=== PATIENT | male | born 1975 | race Caucasian/White ===

== ENCOUNTER 2018-09-24 22:28 | Emergency (ER) | payer OTHER, SELFPAY ==
[2018-09-24 22:28] VITALS: BP 126/74; PULSE 59; RESP 14; TEMP 36.5; O2SAT 98; BMI 23.7
--- NOTE | 2018-09-24 22:45 | RAD_ITS ---
HISTORY:right 4th digit pain after getting finger caught in dog collar right 4th digit pain after getting finger caught in dog collar COMPARISON: None FINDINGS: # of images incl. paperwork: 3 XR Fingers Min 2 Views: Right BONE AND JOINTS: Intra-articular fracture dorsal base DIP right fourth finger SOFT TISSUES: Associated soft tissue swelling No radiopaque foreign body. RAD/Finger(s) Min 2 Views IMPRESSION: Fourth finger fracture right hand at 2323 Reported and signed by: Martina Adams DO Electronically Signed: Martina Adams DO at 23:22 EDT Tel , Service support ,
--- NOTE | 2018-09-24 23:18 | ED.VISSUMM ---
- ER Visit Summary Date of Service: 09/24/18 Chief Complaint: [Injury to right ring finger] History of Present Illness: The patient is a 43 M [presents to the emergency department after injuring his right ring finger about half an hour ago. Patient states that his dog was in the standoff with a skunk so he reached with his right hand to grab the dog by the collar and injured his right ring finger when he got caught in the dog's collar. Patient is right-hand dominant.] Physical Examination: [Right ring finger-patient does have some ecchymosis and bruising over the DIP joint. Patient has limited flexion secondary to pain. He is able to keep the PIP joint extended against resistance. Neurovascular intact distally. There is some mild soft tissue swelling.] Test Results: [X-rays of the right ring finger obtained showed a fracture at the base of the distal phalanx dorsal aspect.] Emergency Department Course and Treatment: [Was placed in aluminum splint.] Treatment Plan: [She will be given a prescription for [place] for pain. Patient will be given orthopedic referral.] Disposition: [Discharged home stable condition.] Impression: [Right ring finger distal phalanx fracture] This note was generated with [employer] dictation software. It may contain incorrect words, spelling, and punctuation that were not noted in review of the chart prior to signing ED Disposition - Plan for ED Patient: Referrals: Ivan Lobo DO [Primary Care Provider] -
--- NOTE | 2018-09-24 23:20 | DCINST.ED_ITS ---
ED Disposition - Plan for ED Patient: Instructions: FRACTURE, Finger (Closed) Prescriptions: Hydrocodone Bitart/Apap 5-325 [[place] 5MG-325MG] 1 tab PO Q4H PRN PRN 2 Days #10 tab PRN Reason: Pain Prescription Printed Referrals: Ivan Lobo DO [Primary Care Provider] - James Sun DO [STAFF PHYSICIAN] - 5-7 Days
[2018-09-24 23:33] VITALS: PULSE 88; RESP 16; O2SAT 98
== END 2018-09-24 23:37 | disposition home or self-care (01) ==
LOC: ED 22:59
PROVIDERS: Emergency Provider Emergency Medicine; Family Provider Student in an Organized Health Care Education/Training Program; PCP Student in an Organized Health Care Education/Training Program
DX: S62.634A Displaced fracture of distal phalanx of right ring finger, initial encounter for closed fracture (principal); X58.XXXA Exposure to other specified factors, initial encounter; Y93.9 Activity, unspecified; Y92.9 Unspecified place or not applicable
CPT/HCPCS: 73140; 99283

== ENCOUNTER → 2025-01-10 | Outpatient (CLI) | payer OTHER, SELFPAY ==
[2025-01-10 12:44] LABS: Mucous, Urine 0 SEEN /hpf (<or=2+); Red Blood Cells-Urine 0 SEEN /hpf (0-5)
[2025-01-10 12:59] LABS: Hematocrit 45.0 % (40-54); Hemoglobin 15.2 g/dL (13.0-16.5); Immature Granulocytes Count 0.010 X10^3/uL (0.0-0.0); Mean Corp Hgb Conc 33.8 g/dL (32-36); Mean Corpuscular Volume 95.1 fL (80-94); Mean Platelet Vol. 11.8 fl (6.2-12.0); NRBC Flagged by Analyzer 0 % (0-5); Platelet Count 251 K/mm3 (150-450); RBC Distribution Width CV 11.7 % (11.6-14.6); RBC Distribution Width SD 40.5 fl (35.1-43.9); Red Blood Count 4.73 M/mm3 (4.6-6.2); White Blood Count 6.2 K/mm3 (4.4-11.0)
[2025-01-10 13:01] LABS: Color, Urine Yellow (Yellow); Glucose, Dipstick Normal (Normal); Ketone-Dipstick Negative (Negative); Leukocyte Esterase-Dipstick Negative /ul (Negative); Nitrite-Dipstick Negative (Negative); Occult Blood-Urine Negative /ul (Negative); Protein-Dipstick 15 mg/dl (Negative); Specific Gravity, Urine 1.015 (1.002-1.030); Urine Bilirubin Dipstick Negative (Negative)
[2025-01-10 13:21] LABS: Squamous Epithelial Cells - UA 0-5 SEEN /hpf (0-5)
[2025-01-10 13:22] LABS: PSA,Total - Annual Screen 0.83 ng/mL (0.02-4.00)
== END | disposition home or self-care (01) ==
LOC: LABSPEC 12:25
PROVIDERS: PCP Internal Medicine; Referring Provider Internal Medicine; Visit Provider Internal Medicine
DX: Z87.898 Personal history of other specified conditions (principal)
CPT/HCPCS: 81001; 84153; 85025; G0103

== ENCOUNTER → 2025-01-25 | Outpatient (CLI) | payer OTHER, SELFPAY ==
[2025-01-25 11:15] LABS: Mucous, Urine 0 SEEN /hpf (<or=2+); Red Blood Cells-Urine 0 SEEN /hpf (0-5)
[2025-01-25 12:33] LABS: Color, Urine Yellow (Yellow); Glucose, Dipstick Normal (Normal); Ketone-Dipstick Negative (Negative); Leukocyte Esterase-Dipstick Negative /ul (Negative); Nitrite-Dipstick Negative (Negative); Occult Blood-Urine Negative /ul (Negative); Protein-Dipstick 15 mg/dl (Negative); Specific Gravity, Urine 1.015 (1.002-1.030); Urine Bilirubin Dipstick Negative (Negative)
[2025-01-25 12:44] LABS: Squamous Epithelial Cells - UA 0-5 SEEN /hpf (0-5)
--- OUTSIDE RECORDS SUMMARY | 2025-01-25 12:44 | XMS RPT_ITS | CCD ---
Author Organization [facility] Care Team Providers Care Lang Interpreter Name Role Phone Ivan Lobo DO Primary Care Provider [phone] Ivan Lobo DO Primary Care Provider [phone] Phillip COMPLAINT ADJUSTER.SUPERVISOR BORDER DEPARTMENTMaggie Unavailable Katiuska COMPLAINT ADJUSTER.Ayana ALFARO Unavailable LOBO IVAN L Primary Care Unavailable DEJOSEPH, PATRICK Referring Unavailable ANH PEOPLES Attending Unavailable LOBO, IVAN L Primary Care Unavailable LOBO, IVAN L Primary Care Unavailable LOBO, IVAN L Primary Care Unavailable LOBO, IVAN L Primary Care Unavailable SELF Referring Unavailable LOUISE PULIDOIHA Attending Unavailable LOBO, IVAN L Primary Care Unavailable LOBO, IVAN L Referring Unavailable LOBO, IVAN L Primary Care Unavailable LOBO, IVAN L Attending Unavailable LOBO, IVAN L Primary Care Unavailable LOBO, IVAN L Referring Unavailable LOBO, IVAN L Primary Care Unavailable LOBO, IVAN L Referring Unavailable LOBO, IVAN L Primary Care Unavailable DEJOSEPH, PATRICK Referring Unavailable LOBO, IVAN L Primary Care Unavailable DEJOSEPH, PATRICK Referring Unavailable LOBO, IVAN L Primary Care Unavailable DEJOSEPH, PATRICK Referring Unavailable LOBO, IAVN L Primary Care Unavailable DEJOSEPH, PATRICK Referring Unavailable LOBO, IVAN L Primary Care Unavailable GINGER, DAT Attending Unavailable LOBO, IVAN L Primary Care Unavailable DEJOSEPH, PATRICK Referring Unavailable LOBO, IVAN L Primary Care Unavailable DEJOSEPH, PATRICK Referring Unavailable LOBO, IVAN L Primary Care Unavailable GINGER, DAT Referring Unavailable LOBO, IVAN L Primary Care Unavailable GINGER, DAT Referring Unavailable LOBO, IVAN L Primary Care Unavailable GINGER, DAT Referring Unavailable GINGERDAT Attending Unavailable YAMIL IVAN Edwin Primary Care Unavailable DEJOSEPH, PATRICK Attending Unavailable IVAN LOBO Primary Care Unavailable IVAN LOBO Referring Unavailable IVAN LOBO Primary Care Unavailable LOBOIVAN LOWRY Primary Care Unavailable DEJOSEPH, PATRICK Referring Unavailable IVAN LOBO L Primary Care Unavailable LOBO IVAN Edwin Referring Unavailable IVAN LOBO Primary Care Unavailable Fast, Patrick Referring Unavailable Fast, Patrick Attending Unavailable Fast, Patrick Primary Care Unavailable Medications Current Medications Medication Drug Class(es) Dates Sig (Normalized) Sig (Original) bacillus coagulans [id number] unt / inulin 250 mg oral capsule (18 sources) take 2 capsules by mouth once daily Bacillus coagulans-Inulin (PROBIOTIC WITH PREBIOTIC) 1 billion-250 cell-mg cap Take 2 capsules by mouth once daily. Active biotin 5 mg oral tablet (18 sources) Start: 01-27-2024 take 1 tablet by mouth once daily biotin 5 mg tab Take 1 tablet by mouth once daily. HOLD for 72 hours before labs 01/27/2024 Active calcium polycarbophil 625 mg oral tablet (17 sources) Start: 01-27-2024 FIBERCON 625 mg tablet 1 daily with 8 oz water, can titrate up to 3 tablets twice daily 01/27/2024 Active cholecalciferol 0.025 mg oral capsule (20 sources) Vitamin D Start: 09-11-2022 take 1 capsule by mouth once daily Cholecalciferol, Vitamin D3, 25 mcg (1,000 unit) cap Take 1 capsule by mouth once daily. 09/11/2022 Active Start: 06-22-2015 End: 09-11-2022 take 1 tablet by mouth once daily Cholecalciferol, Vitamin D3, 2,000 unit cap Indications: Vitamin D insufficiency Take 1 tablet by mouth once daily. 30 capsule 11 06/22/2015 09/11/2022 Discontinued Comment on above: Take 1 tablet by earnestine th once daily. Take 1 capsule by mo [facility] once daily. ciprofloxacin 500 mg oral tablet (7 sources) Quinolone Antimicrobial Start: 03-30-19 End: 04-09-19 take 1 tablet by mouth twice daily ciprofloxacin HCl (CIPRO) 500 mg tablet Take 1 tablet by mouth two times a day for 10 days. 20 tablet 03/30/2024 04/09/2024 Active Herbal Drugs (CALMME) tab (20 sources) Start: 09-12-19 take 1 tablet by mouth once daily at bedtime Herbal Drugs (CALMME) tab Take 1 tablet by mouth daily at bedtime. CALM FORTE 09/11/2022 Active Start: 09-11-2022 take 1 tablet by earnestine th once daily at bedtime Herbal Drugs (CALMME) tab Take 1 tablet by mouth daily at bedtime. CALM FORTE 0 09/11/2022 Active Comment on above: Take 1 tablet by earnestine th daily at bedtime. CALM FORTE lutein 40 mg oral capsule (13 sources) Start: 03-05-2024 take 1 capsule by mouth once daily lutein 40 mg cap Take 1 capsule by mouth once daily. 03/05/2024 Active magnesium carb,citrate,oxide (MAGNESIUM COMPLEX) 300 mg magnesium tab (20 sources) Start: 09-11-2022 take 1 tablet by mouth once daily magnesium carb,citrate,oxide (MAGNESIUM COMPLEX) 300 mg magnesium tab Take 1 tablet by mouth once daily. 09/11/2022 Active Start: 09-11-2022 take 1 tablet by earnestine th once daily magnesium carb,citrate,oxide (MAGNESIUM COMPLEX) 300 mg magnesium tab Take 1 tablet by mouth once daily. 0 09/11/2022 Active Comment on above: Take 1 tablet by earnestine th once daily. omega 1-cpj-icm-fish oil (FISH OIL) 100-160-1,000 mg cap (20 sources) Start: 09-11-2022 take 100-160 capsules by mouth once daily omega 4-kpg-zwx-fish oil (FISH OIL) 100-160-1,000 mg cap Take 1 capsule by mouth once daily. 09/11/2022 Active Start: 09-11-2022 take 100-160 capsule s by mouth once daily omega 1-inx-ger-fish oil (FISH OIL) 100-160-1,000 mg cap Take 1 capsule by mouth once daily. 0 09/11/2022 Active Comment on above: Take 1 capsule by mo ut[facility] once daily. phenazopyridine hydrochloride 200 mg oral tablet (8 sources) Start: take 1 tablet by mouth every eight hours as needed phenazopyridine (PYRIDIUM) 200 mg tablet Take 1 tablet by mouth three times a day as needed for pain (UTI pain). 30 tablet 03/30/2024 Active valACYclovir 1000 mg oral tablet (15 sources) Herpesvirus Nucleoside Analog DNA Polymerase Inhibitor, Herpes Simplex Virus Nucleoside Analog DNA Polymerase Inhibitor, Herpes Zoster Virus Nucleoside Analog DNA Polymerase Inhibitor Start: 024 take 1 tablet by mouth three times daily as needed valACYclovir (VALTREX) 1 gram tablet Indications: Recurrent cold sores Take 1 tablet by mouth three times a day as needed (cold sores). 30 tablet 2 02/18/2024 Active valerian root extract 500 mg oral capsule (20 sources) Start: 023 take 1 capsule by mouth once daily at bedtime Valerian Root 500 mg cap Take 1 capsule by mouth daily at bedtime. 09/11/2022 Active Start: 09-11-2022 take 1 capsule by [facility] once daily at bedtime Valerian Root 500 mg cap Take 1 capsule by mouth daily at bedtime. 0 09/11/2022 Active Comment on above: Take 1 capsule by [facility] daily at bedtime. vitamin b12 1 mg oral tablet (20 sources) Vitamin B12 take 1 tablet by mouth once daily cyanocobalamin (VITAMIN B-12) 1,000 mcg tab Take 1,000 mcg by mouth once daily. Active Comment on above: Take 1,000 mcg by [facility] once daily. Completed/Discontinued Medications Medication Drug Class(es) Dates Sig (Normalized) Sig (Original) Ascorbic Acid (7 sources) Vitamin C End: 09-10-2022 take 1 tablet by mouth once daily ascorbic acid (OSITO-C ORAL) Take 1 tablet by mouth once daily. 0 09/10/2022 Discontinued take 1 tablet by mouth once sherine y ascorbic acid (OSITO-C ORAL) Take 1 tablet by mouth once daily. 0 Active Comment on above: Take 1 tablet by [facility] once daily. Lysine (7 sources) End: 09-10-2022 take 2 tablets by mouth once daily LYSINE ORAL Take 2 tablets by mouth once daily. 0 09/10/2022 Discontinued take 2 tablets by mouth once [place] LYSINE ORAL Take 2 tablets by mouth once daily. 0 Active Comment on above: Take 2 tablets by [facility] once daily. melatonin 1 mg oral tablet (10 sources) Start: 09-11-2022 End: 01-27-2024 take 1-2 tablets by mouth once daily at bedtime melatonin 1 mg tablet Take 1-2 tablets by mouth daily at bedtime. 60 tablet 11 09/11/2022 01/27/2024 Discontinued (Discontinued by Patient) Comment on above: Take 1-2 tablets by mouth daily at bedtime. OTC PRODUCT (7 sources) End: 09-11-2022 take 1 tablet by mouth at bedtime as needed OTC PRODUCT Take 1 tablet by mouth at bedtime as needed. Calms Forte 0 09/11/2022 Discontinued (Duplicate Entry) take 1 tablet by earnestine th at bedtime as needed OTC PRODUCT Take 1 tablet by mouth at bedtime as needed. Calms Forte 0 Active Comment on above: Take 1 tablet by earnestine th at bedtime as needed. Calms Forte Problems Active Problems Problem Classification Problem Date Documented Da te Episodic/Chronic Disorders of lipid metabolism (2 sources) Dyslipidemia; Translations: [Hyperlipidemia, unspecified] Onset: 01-27-2024 12-24-2023 Chronic Nutritional deficiencies (20 sources) Vitamin D deficiency; Translations: [Vitamin D deficiency, unspecified] Onset: 03-03-2017 Chronic Other connective tissue disease (1 source) Clicking knee; Translations: [Other symptoms and signs involving the musculoskeletal system] Episodic Other connective tissue disease (1 source) Pain of left heel; Translations: [Pain in left foot] Episodic Other connective tissue disease (1 source) Muscle pain; Translations: [Myalgia, unspecified site] Episodic Other connective tissue disease (1 source) Pain of left calf; Translations: [Pain in left lower leg] 12-24-2023 Episodic Other gastrointestinal disorders (2 sources) Altered bowel function; Translations: [Other specified symptoms and signs involving the digestive system and abdomen] 12-24-2023 Episodic Residual codes; unclassified (20 sources) Family history of cancer of colon; Translations: [Family history of malignant neoplasm of digestive organs] Onset: 07-19-2015 07-19-2015 Episodic Residual codes; unclassified (1 source) History of clinical finding in subject; Translations: [Personal history of other specified conditions] 05-27-2024 Episodic Residual codes; unclassified (2 sources) Personal history of other specified conditions; Translations: [History of elevated PSA] Onset: 12-24-2024 Episodic Past or Other Problems Problem Classification Problem Date Documented Da te Episodic/Chronic Abdominal pain (20 sources) Right inguinal pain; Translations: [Right lower quadrant pain] Onset: 03-04-2018 03-04-2018 Episodic Cardiac dysrhythmias (20 sources) Palpitations; Translations: [Palpitations] Onset: 03-29-2019 03-29-2019 Episodic Genitourinary symptoms and ill-defined conditions (2 sources) Abnormal urinalysis; Translations: [Unspecified abnormal findings in urine] Onset: 03-27-2024 03-26-2024 Episodic Immunizations and screening for infectious disease (18 sources) Raised Helicobacter pylori antibody; Translations: [Other specified abnormal immunological findings in serum] Onset: 02-18-2024 02-18-2024 Episodic Joint disorders and dislocations; trauma-related (20 sources) Dislocation of shoulder joint; Translations: [Unspecified dislocation of unspecified shoulder joint, initial encounter] Onset: 05-21-2016 05-21-2016 Episodic Other and unspecified benign neoplasm (20 sources) Multiple benign melanocytic nevi ; Translations: [Melanocytic nevi, unspecified] Onset: 10-25-2015 10-25-2015 Episodic Other and unspecified benign neoplasm (20 sources) Benign neoplasm of soft tissue; Translations: [Melanocytic nevi, unspecified] Onset: 03-04-2018 03-04-2018 Episodic Other and unspecified benign neoplasm (20 sources) Lipoma of thigh; Translations: [Benign lipomatous neoplasm of skin and subcutaneous tissue of left leg] Onset: 03-29-2019 03-29-2019 Episodic Other connective tissue disease (20 sources) Pain in left foot; Translations: [Pain in left foot] Onset: 03-29-2019 03-29-2019 Episodic Other gastrointestinal disorders (20 sources) Abdominal bloating; Translations: [Abdominal distension (gaseous)] Onset: 02-18-2024 12-24-2023 Episodic Other gastrointestinal disorders (1 source) Abdominal distension (gaseous); Translations: [Bloating] Onset: 02-18-2024 Episodic Other gastrointestinal disorders (1 source) Other specified symptoms and signs involving the digestive system and abdomen; Translations: [Altered bowel function] Onset: 01-27-2024 Episodic Other screening for suspected conditions (not mental disorders or infectious disease) (20 sources) Patient encounter status; Translations: [Encounter for screening for cardiovascular disorders] Onset: 07-06-2020 07-26-2020 Episodic Urinary tract infections (2 sources) Acute cystitis; Translations: [Acute cystitis without hematuria] Onset: 04-06-2024 04-06-2024 Episodic Viral infection (19 sources) Recurrent herpes simplex labialis; Translations: [Herpesviral vesicular dermatitis] Onset: 02-18-2024 02-18-2024 Episodic Results Test Name Value Interpretation Reference Range Facility CBC W/Diff, Automatedon 10- Absolute Lymph 1.86 X10 3/uL Normal 0.83-4.51 [facility] Comment on above: Performed By: #### L 400.0001, L100.0100, L501.9910 #### [facility] [address] [place], [address] Absolute Neut 3.6 X10 3/uL Normal 2.0-7.7 [facility] Comment on above: Performed By: #### L 400.0001, L100.0100, L501.9910 #### [facility] [address] [place], [address] Basophils/100 WBC (Bld) 0.8 % Normal 0-1 [facility] Comment on above: Performed By: #### L 400.0001, L100.0100, L501.9910 #### [facility] [address] [place], [address] Eosinophils/100 WBC (Bld) 2.3 % Normal 0-5 [facility] Comment on above: Performed By: #### L 400.0001, L100.0100, L501.9910 #### [facility] [address] [place], [address] Erythrocyte distribution width (RBC) [Ratio] 11.7 % Normal 11.6-14.6 [facility] Comment on above: Performed By: #### L 400.0001, L100.0100, L501.9910 #### [facility] [address] [place], [address] Hematocrit (Bld) [Volume fraction] 45.0 % Normal 40-54 [facility] Comment on above: Performed By: #### L 400.0001, L100.0100, L501.9910 #### [facility] [address] [place], [address] Hemoglobin (Bld) [Mass/Vol] 15.2 g/dL Normal 13.0-16.5 [facility] Comment on above: Performed By: #### L 400.0001, L100.0100, L501.9910 #### [facility] [address] [place], [address] IG% 0.200 Normal 0.0-0.9 [facility] Comment on above: Result Comment: IG% - Immature Granulocytes (promyelocytes, myelocytes and metamyelocytes) > 1% indicates that a LEFT SHIFT is Present. Performed By: #### L 400.0001, L100.0100, L501.9910 #### [facility] [address] [place], [address] Lymphocytes/100 WBC (Bld) 30.0 % Normal 19-41 [facility] Comment on above: Performed By: #### L 400.0001, L100.0100, L501.9910 #### [facility] [address] [place], [address] MCH (RBC) [Entitic mass] 32.1 pg High 27.0-32.0 [facility] Comment on above: Performed By: #### L 400.0001, L100.0100, L501.9910 #### [facility] [address] [place], [address] MCHC (RBC) [Mass/Vol] 33.8 g/dL Normal 32-36 [facility] Comment on above: Performed By: #### L 400.0001, L100.0100, L501.9910 #### [facility] [address] [place], [address] MCV (RBC) [Entitic vol] 95.1 fL High 80-94 [facility] Comment on above: Performed By: #### L 400.0001, L100.0100, L501.9910 #### [facility] [address] [place], [address] Monocytes/100 WBC (Bld) 8.4 % Normal 0-10 [facility] Comment on above: Performed By: #### L 400.0001, L100.0100, L501.9910 #### [facility] [address] [place], [address] Neutrophils/100 WBC (Bld) 58.3 % Normal 47-70 [facility] Comment on above: Performed By: #### L 400.0001, L100.0100, L501.9910 #### [facility] [address] [place], [address] Nucleated RBC (Bld) [#/Vol] 0 10*3/uL Normal 0-5 [facility] Comment on above: Performed By: #### L 400.0001, L100.0100, L501.9910 #### [facility] [address] [place], [address] Platelet mean volume (Bld) [Entitic vol] 11.8 fL Normal 6.2-12.0 [facility] Comment on above: Performed By: #### L 400.0001, L100.0100, L501.9910 #### [facility] [address] [place], [address] Platelets (Bld) [#/Vol] 251 10*3/uL Normal 150-450 [facility] Comment on above: Performed By: #### L 400.0001, L100.0100, L501.9910 #### [facility] [address] [place], [address] RBC (Bld) [#/Vol] 4.73 10*6/uL Normal 4.6-6.[address] [facility] Comment on above: Performed By: #### L 400.0001, L100.0100, L501.9910 #### [facility] [address] [place], [address] RDW SD 40.5 fl Normal 35.1-43.9 [facility] Comment on above: Performed By: #### L 400.0001, L100.0100, [id number] #### [facility] [address] [place], [address] WBC (Bld) [#/Vol] 6.2 10*3/uL Normal 4.4-11.0 [facility] Comment on above: Performed By: #### L 400.0001, L100.0100, L501.9910 #### [facility] [address] [place], [address] PSA,Total - Annual Screenon 01-10-2025 PSA,TOT SCREEN 0.83 ng/mL Normal 0.02-4.00 [facility] Comment on above: Result Comment: This test was performed using the [employer] tPSA method. Measured values of a patient??sample can vary depending on the testing procedure used. PSA values determined on patient samples by different testing procedures cannot be used interchangeably. If there is a change in PSA assays while monitoring therapy, sequential testing should be performed to confirm baseline values. Performed By: #### L 400.0001, L100.0100, L501.9910 #### [facility] [address] [place], [address] Urinalysis, Completeon 01-10 EPI,SQUAMOUS 0-5 SEEN Normal 0-5 [facility] Comment on above: Order Comment: Urine , Random Performed By: #### L 400.0001, L100.0100, L501.9910 #### [facility] [address] [place], [address] WBC 0-5 SEEN Normal 0-5 [facility] Comment on above: Order Comment: Urine , Random Performed By: #### L 400.0001, L100.0100, L501.9910 #### [facility] [address] [place], [address] BACTERIA 0 SEEN Normal None Seen [facility] Comment on above: Order Comment: Urine , Random Performed By: #### L 400.0001, L100.0100, L501.9910 #### [facility] [address] [place], [address] Mucus Ql (Urine sed) 0 SEEN Normal [facility] Comment on above: Order Comment: Urine , Random Performed By: #### L 400.0001, L100.0100, [id number] #### [facility] [address] [place], [address] RBC 0 SEEN Normal 0-5 [facility] Comment on above: Order Comment: Urine , Random Performed By: #### L 400.0001, L100.0100, L501.9910 #### [facility] [address] [place], [address] CNOVon 12-28-2024 CNOV Office Visit (UROLMN ) DEMETRI SANTILLAN ([id number]) 1975 M EXC Date Time Provider Department 12/28/24 9:00 AM DAT MILES During your visit today, we recorded the following information about you: Ivan Alcantar RN 12/28/2024 10:18 AM Signed [facility] M[facility] PATIENT - HISTORY AND PHYSICAL EXAMINATION PATIENT: Demetri Santillan (49 year old) PCP: Ivan Lobo DO CHIEF COMPLAINT: f/u history of elevated PSA Clinic note from 04/06/2024 copied and updated. HISTORY OF PRESENT ILLNESS: Demetri Santillan is a 49 year old male with history of elevated PSA who presents for follow up evaluation. Per last OV note 04/06/24: Reports his PSA was checked and found to be 1.29 on 01/27/2024 Reports he had DANIS around this time and this was normal His PSA was 7.71 on 02/18/2024 PSA was rechecked afterwards and was found to be 4.99 03/01/2024 and 5.07 03/24/2024 Urine culture on 03/27/2024 revealed UTI with E Coli Presents today with updated PSA. PSA (ng/mL) Date Value 12/24/2024 0.70 05/26/2024 0.84 03/01/2024 4.99 09/11/2022 0.99 07/06/2020 0.95 12/22/2015 0.86 PSA Screening (ng/mL) Date Value 03/24/2024 5.07 02/18/2024 7.71 PSA, Percent Free (%) Date Value 05/26/2024 20 09/11/2022 32 07/06/2020 27 12/22/2015 26 Interval hx: Patient overall feeling well. He denies any bothersome LUTS. Denies any gross hematuria or dysuria. Denies ED. REVIEW OF SYSTEMS (2-9) GENERAL:No weight loss, malaise or fevers., SEE HPI GENITOURINARY: See HPI The remainder of the ROS was negative. Ivan Alcantar RN UROLOGY ATTENDING ATTESTATION: The patient was personally seen and evaluated. The nurse's history and ROS were reviewed. I repeated the significant and relevant portions of the examination and formulated the final plan for management. HISTORY: PAST MEDICAL HISTORY Diagnosis Date Family history of colon cancer mother and paternal aunt Multiple lipomas Multiple nevi 2 x 2 mm on right upper back x 2, 7 x 2 mm on right lower back/flank Vitamin D insufficiency PAST SURGICAL HISTORY Procedure Laterality Date APPENDECTOMY 1999 ruptured, emergent, sepsis COLONOSCOPY 08/02/2015 Colonoscopy (MAC), 1 hyperplastic polyp COLONOSCOPY GEN ANES 08/07/2020 Repeat in 5 years FRACTURE SURGERY Left 2010 ulnar PAST SURGICAL HISTORY OF 2006 ACL repair of Right knee SOCIAL HISTORY[1] FAMILY HISTORY Problem Relation Age of Onset other (Smoker) Mother Alcohol abuse Mother liver disease Colon Cancer Mother 55 rectal cancer other (Car accident) Father at 48 No Known Problems Sister other (MVA) Brother multiple injuries Hypertension Maternal Grandmother at 96 Heart Maternal Grandfather Stroke Maternal Grandfather at 62 Hypertension Paternal Grandmother Diabetes Paternal Grandfather Hypertension Paternal Grandfather Stroke Paternal Grandfather Anxiety disorder Daughter well treated ADD/ADHD Daughter No Known Problems Daughter hx of heavier weight Colon Cancer Paternal Aunt 50 in her 60's MEDICATIONS: Current Outpatient Medications Medication Sig phenazopyridine (PYRIDIUM) 200 mg tablet Take 1 tablet by mouth three times a day as needed for pain (UTI pain). (Patient not taking: Reported on 04/06/2024) lutein 40 mg cap Take 1 capsule by mouth once daily. valACYclovir (VALTREX) 1 gram tablet Take 1 tablet by mouth three times a day as needed (cold sores). Bacillus coagulans-Inulin (PROBIOTIC WITH PREBIOTIC) 1 billion-250 cell-mg cap Take 2 capsules by mouth once daily. biotin 5 mg tab Take 1 tablet by mouth once daily. HOLD for 72 hours before labs FIBERCON 625 mg tablet 1 daily with 8 oz water, can titrate up to 3 tablets twice daily (Patient not taking: Reported on 04/06/2024) Cholecalciferol, Vitamin D3, 25 mcg (1,000 unit) cap Take 1 capsule by mouth once daily. omega 2-ojb-clc-fish oil (FISH OIL) 100-160-1,000 mg cap Take 1 capsule by mouth once daily. Valerian Root 500 mg cap Take 1 capsule by mouth daily at bedtime. Herbal Drugs (CALMME) tab Take 1 tablet by mouth daily at bedtime. CALM FORTE magnesium carb,citrate,oxide (MAGNESIUM COMPLEX) 300 mg magnesium tab Take 1 tablet by mouth once daily. cyanocobalamin (VITAMIN B-12) 1,000 mcg tab Take 1,000 mcg by mouth once daily. No current facility-administered medications for this visit. PHYSICAL EXAMINATION: VITALS: There were no vitals taken for this visit. GENERAL: alert, no distress, normal affect EYES: no icterus, no discharge, conjugate gaze RESPIRATORY: normal effort, regular rate, no audible wheeze SKIN: no abnormal bruising, no rashes, no cyanosis NEUROLOGIC: normal gait, good manual dexterity, no paralysis OFFICE DATA: URINALYSIS: WNL OTHER DATA: Creatinine Date Value (more content not included)... Normal [facility] PSA SerPl-mCncon 12-24-2024 Prostate specific Ag [Mass/Vol] 0.70 ng/mL Normal <2.60 [facility] Comment on above: Order Comment: Speci men Type: BLOOD SPECIMENOrdering Facility: [facility] Address: [address] [place] [address] Result Comment: Tota l PSA test methodology used is the Electrochemiluminescence Immunoassay by [employer]. Total PSA values by differing methodologies cannot be interchanged. Performed By: #### 2 857-1 ####[facility] LABCLIA [id number] [address] [place] Free PSA [Mass/Vol]on 2024 Free PSA/Total PSA [Mass fraction] 20 % Normal [facility] Comment on above: Order Comment: Speci men Type: BLOOD SPECIMENOrdering Facility: [facility] Address: [address] [place] [address] Result Comment: Tota l and free PSA test methodology used is the Electrochemiluminescence Immunoassay by [employer]. Total or free PSA values by differing methodologies cannot be interchanged. The below table lists the probability of finding prostate cancer upon needle biopsy, for men 50 years or older and total PSA concentrations from 4.0-10.0 ng/mL. Results should be interpreted within the broader clinical context. Free PSA(%) 50-59 years 60-69 years >69 years <11 49.2% 57.5% 64.5% 11-18 26.9% 33.9% 40.8% 19-25 18.3% 23.9% 29.7% >25 9.1% 12.2% 15.8% Performed By: #### 1 0886-0 ####[facility] LABIA [id number] [place] [address] [place] Prostate specific Ag [Mass/Vol] 0.84 ng/mL Normal <2.60 [facility] Comment on above: Order Comment: Speci men Type: BLOOD SPECIMENOrdering Facility: [facility] Address: [address] [place] [address] Result Comment: Tota l PSA test methodology used is the Electrochemiluminescence Immunoassay by [employer]. Total PSA values by differing methodologies cannot be interchanged. Performed By: #### 1 0886-0 ####[facility] LABIA [id number] [address] [place] CNOVon 04-06-2024 CNOV Office Visit (UROLMN ) DEMETRI SANTILLAN ([id number]) 1975 M EXC Date Time Provider Department 04/06/24 9:00 AM DAT MILES During your visit today, we recorded the following information about you: Pulse Blood pressure Weight Height 55/minute 106/66 81 kg 1.803 m Dat Miles MD 04/06/2024 11:34 AM Signed [facility] M[facility] PATIENT - HISTORY AND PHYSICAL EXAMINATION PATIENT: Demetri Santillan (49 year old) PCP: Ivan Lobo DO CHIEF COMPLAINT: elevated PSA HISTORY OF PRESENT ILLNESS: Demetri Santillan is a 49 year old male who presents for elevated PSA Reports his PSA was checked and found to be 1.29 on 01/27/2024 Reports he had DANIS around this time and this was normal His PSA was recently checked and found to be 7.71 on 02/18/2024 PSA was rechecked afterwards and was found to be 4.99 03/01/2024 and 5.07 03/24/2024 Urine culture on 03/27/2024 revealed UTI with E Coli He was given 2 week course of cipro Reports he did not have not have any symptoms prior this positive urine culture - no dysuria, hematuria, no urgency or frequency No flu like symptoms PSA (ng/mL) Date Value 03/01/2024 4.99 09/11/2022 0.99 07/06/2020 0.95 12/22/2015 0.86 PSA Screening (ng/mL) Date Value 03/24/2024 5.07 02/18/2024 7.71 PMH: none PSH: appendectomy Family hx: no known family hx of malignancies REVIEW OF SYSTEMS: CONSTITUTIONAL: no recent illnesses, normal energy levels, no pain GASTROINTESTINAL: no constipation, no diarrhea, no bloody stool GENITOURINARY: see history of present illness HISTORY: PAST MEDICAL HISTORY Diagnosis Date Family history of colon cancer mother and paternal aunt Multiple lipomas Multiple nevi 2 x 2 mm on right upper back x 2, 7 x 2 mm on right lower back/flank Vitamin D insufficiency PAST SURGICAL HISTORY Procedure Laterality Date APPENDECTOMY 1999 ruptured, emergent, sepsis COLONOSCOPY 08/02/2015 Colonoscopy (MAC), 1 hyperplastic polyp COLONOSCOPY GEN ANES 08/07/2020 Repeat in 5 years FRACTURE SURGERY Left 2010 ulnar PAST SURGICAL HISTORY OF 2006 ACL repair of Right knee Social History Tobacco Use Smoking status: Never Smokeless tobacco: Never Tobacco comments: secondhand smoke exposure as a child Vaping Use Vaping status: Never Used Substance Use Topics Alcohol use: Yes Alcohol/week: 4.0 standard drinks of alcohol Types: 4 Glasses of Wine (5oz) per week Comment: 3-4 glasses of wine and rare beer, 2023 decreased further to 3 glasses a week, never > 2 glasses, and couple of times a week. Drug use: No FAMILY HISTORY Problem Relation Age of Onset other (Smoker) Mother Alcohol abuse Mother liver disease Colon Cancer Mother 55 rectal cancer other (Car accident) Father at 48 No Known Problems Sister other (MVA) Brother multiple injuries Hypertension Maternal Grandmother at 96 Heart Maternal Grandfather Stroke Maternal Grandfather at 62 Hypertension Paternal Grandmother Diabetes Paternal Grandfather Hypertension Paternal Grandfather Stroke Paternal Grandfather Anxiety disorder Daughter well treated ADD/ADHD Daughter No Known Problems Daughter hx of heavier weight Colon Cancer Paternal Aunt 50 in her 60's MEDICATIONS: Current Outpatient Medications Medication Sig ciprofloxacin HCl (CIPRO) 500 mg tablet Take 1 tablet by mouth two times a day for 10 days. phenazopyridine (PYRIDIUM) 200 mg tablet Take 1 tablet by mouth three times a day as needed for pain (UTI pain). lutein 40 mg cap Take 1 capsule by mouth once daily. valACYclovir (VALTREX) 1 gram tablet Take 1 tablet by mouth three times a day as needed (cold sores). Bacillus coagulans-Inulin (PROBIOTIC WITH PREBIOTIC) 1 billion-250 cell-mg cap Take 2 capsules by mouth once daily. biotin 5 mg tab Take 1 tablet by mouth once daily. HOLD for 72 hours before labs FIBERCON 625 mg tablet 1 daily with 8 oz water, can titrate up to 3 tablets twice daily Cholecalciferol, Vitamin D3, 25 mcg (1,000 unit) cap Take 1 capsule by mouth once daily. omega 0-jfi-lhz-fish oil (FISH OIL) 100-160-1,000 mg cap Take 1 capsule by mouth once daily. Valerian Root 500 mg cap Take 1 capsule by mouth daily at bedtime. Herbal Drugs (CALMME) tab Take 1 tablet by mouth daily at bedtime. CALM FORTE magnesium carb,citrate,oxide (MAGNESIUM COMPLEX) 300 mg magnesium tab Take 1 tablet by mouth once daily. cyanocobalamin (VITAMIN B-12) 1,000 mcg tab Take 1,000 mcg by mouth once daily. No current facility-administered medications for this visit. PHYSICAL EXAMINATION: VITALS: BP 106/66 (BP Site: Left Arm, BP Position: Sitting, BP Cuff Size: Regular Adult) Pulse (!) 55 Ht 180.3 cm (5' 11) Wt 81 kg (178 lb 9.2 oz) BMI 24.91 kg/m? GENERAL: alert, in no acute distress, normal affect EYES: no (more content not included)... Normal [facility] Laboratory - Hematology and Cell countson 04-06-2024 Hemoglobin Ql (U) Negative Negative [facility] - Urinalysison Protein Ql (U) Negative Negative mg/dL [facility] No Panel Informationon 04-06 BILIRUBIN UA (POCT) Negative Negative [facility] CLARITY UA (POCT) Clear [facility] COLOR UA (POCT) Dark yellow [facility] GLUCOSE UA (POCT) Negative Negative mg/dL [facility] KETONE UA (POCT) Negative Negative mg/dL [facility] LEUKOCYTES UA (POCT) Negative Negative [facility] NITRITE UA (POCT) Negative Negative [facility] PH UA (POCT) 5.5 4.5 - 8.0 [facility] SPECIFIC GRAVITY UA (POCT) 1.025 1.005 - 1.030 [facility] UROBILINOGEN UA (POCT) 0.2 Normal E.U./dL [facility] Location:[address] POINT OF CARE [facility] NM CARDIAC PERF STRESS/EXERC ISEon 04-05-2024 NM CARDIAC PERF STRESS/EXERCISE * * *Final Report* * * DATE OF EXAM: Apr 05 2024 3:04PM WON 0004 - NM CARDIAC PERF STRESS/EXERCISE / PROCEDURE REASON: Abnormal electrocardiogram * * * * Physician Interpretation * * * * Stress Clinic Supervisor Report: [facility] Date of service: 04/05/2024 7:41:59 AM Supervising physician: Miranda Adam MD PATIENT: Name: MR. DEMETRI SANTILLAN Age: 49 years Gender: M The supervising physician was in the department and immediately available. * * * Final * * * PATIENT: Name: MR. DEMETRI SANTILLAN Age: 49 years Gender: M CONCLUSIONS: 1. SPECT Perfusion Study: Normal. 2. There is no scintigraphic evidence for inducible ischemia. 3. No evidence of scarred myocardium. 4. Left ventricle is normal in size. The left ventricle systolic function is normal. 5. Right ventricle is normal in size. The right ventricle systolic function is normal. 6. This is a low risk scan. Gated Stress FBP LVEF % 73 Prior Study Comparison No prior nuclear cardiology exam available for comparison. Nuclear Med Report:1-Day Gated SPECT Myocardial Perfusion with Exercise Stress: Myocardial perfusion imaging was performed at rest 30 to 60 minutes following the IV injection of the radiotracer. One minute prior to peak exercise, the patient was injected IV with the radiotracer. Gated post stress tomographic imaging was performed 10 to 20 minutes later. See administered radiotracer and doses below. [facility] Date of service: 04/05/2024 7:41:59 AM Ordering Physician: PATRICK IBRAHIM. Requesting Physician: PATRICK IBRAHIM Indication: Assessment for suspected CAD Interpreting physician: Valery Bowens MD Height: 180.34 cm BSA: 2.02 m? Weight: 81.65 kg BMI: 25.1 kg/m? Imaging Protocol Limitation Reason G.I. uptake, Patient motion and Diaphragmatic attenuation. Exam Type: Rest Stress Radiopharm: Tc-99m Tetrofosmin Tc-99m Tetrofosmin Dosage(mCi): 11.9 35.6 Stress Agent: Treadmill Image Quality The overall study imaging quality was deemed to be fair. The following technical issues were noted: G.I. uptake, Patient motion and Diaphragmatic attenuation. FINDINGS: Left Ventricle Wall Motion: Stress IR:3D - All segments are normal. Rest IR:3D - Gated Stress FBP - Reversibility - Stress IR:3D Stress IR:3D Gated Stress FBP LVEF: 73 % ED Volume: 134 ml ES Volume: 36 ml TID: 0.85 Perfusion Findings Stress IR:3D - Summed Score=0 All segments demonstrate normal perfusion. Rest IR:3D - Summed Score=0 All segments demonstrate normal perfusion. Stress IR:3D Rest IR:3D Summed Score=0 Summed Score=0 LEFT VENTRICLE The left ventricle is normal in size. Left ventricular systolic function is normal. Right Ventricle The right ventricle is normal in size. Right ventricle systolic function is normal. Stress Test Findings: There is no scintigraphic evidence for inducible ischemia. There is no evidence of scarring. * * * Final * * * Stress ECG Report: [facility] Date of service: 04/05/2024 7:41:59 AM Ordering physician: PATRICK IBRAHIM clinical studies specialist: Emily Harrell RN Interpreting physician: Miranda Adam MD Patient name: MR. DEMETRI SANTILLAN Age: 49 years Gender: M Height: 180.34 cm BSA: 2.02 m? Weight: 81.65 kg BMI: 25.1 kg/m? Indication: Abnormal resting ECG and Encounter for screening for cardiovascular disorders Stress ECG Conclusion: Conclusion: Normal with exception due to borderline ST changes Prior exam comparison: No significant changes Stress ECG Summary: The patient's resting heart rate was 54 bpm and blood pressure was 104/62 mmHg. The patient exercised according to the [place] protocol. The estimated end-exercise MET level achieved using the FRIEND equation * * * was 10.5, which is within the 25th to 50th percentile for age and sex. The estimated end-exercise MET level achieved using the previous ACSM equation was 13.5. The test was terminated due to general fatigue and the total exercise time was 12 minutes and 0 seconds. No symptoms provoked during stress. The maximum heart rate was 166 bpm, which is 97% of the predicted heart rate for age. This is an adequate heart rate response. Peak blood pressure was 142/66 mmHg. The double product [place] [address]. Resting ECG: Sinus Bradycardia Symptoms at rest: No symptoms Exercise Protocol: [place] Stress Exercise Table: +-----+ +-------- + +---+---+---+--- -+---+----+ Stage Speed (MPH) Grade(%) Time (min) HR SYS GULSHAN (more content not included)... Normal [facility] Heart Perfusion W multipl e states of exerciseon 04-05-2024 * * *Final Report* * * DATE OF EXAM: Apr 05 2024 3:04PM [address] CARDIAC PERF STRESS/EXERCISE / PROCEDURE REASON: Abnormal electrocardiogram * * * * Physician Interpretation * * * * Stress Clinic Supervisor Report: [facility] Date of service: 04/05/2024 7:41:59 AM Supervising physician: Miranda Adam MD PATIENT: Name: MR. DEMETRI SANTILLAN Age: 49 years Gender: M The supervising physician was in the department and immediately available. * * * Final * * * PATIENT: Name: MR. DEMETRI SANTILLAN Age: 49 years Gender: M CONCLUSIONS: 1. SPECT Perfusion Study: Normal. 2. There is no scintigraphic evidence for inducible ischemia. 3. No evidence of scarred myocardium. 4. Left ventricle is normal in size. The left ventricle systolic function is normal. 5. Right ventricle is normal in size. The right ventricle systolic function is normal. 6. This is a low risk scan. Gated Stress FBP LVEF % 73 Prior Study Comparison No prior nuclear cardiology exam available for comparison. Nuclear Med Report:1-Day Gated SPECT Myocardial Perfusion with Exercise Stress: Myocardial perfusion imaging was performed at rest 30 to 60 minutes following the IV injection of the radiotracer. One minute prior to peak exercise, the patient was injected IV with the radiotracer. Gated post stress tomographic imaging was performed 10 to 20 minutes later. See administered radiotracer and doses below. [facility] Date of service: 04/05/2024 7:41:59 AM Ordering Physician: PATRICK IBRAHIM. Requesting Physician: PATRICK IBRAHIM Indication: Assessment for suspected CAD Interpreting physician: Valery Bowens MD Height: 180.34 cm BSA: 2.02 m Weight: 81.65 kg BMI: 25.1 kg/m Imaging Protocol Limitation Reason G.I. uptake, Patient motion and Diaphragmatic attenuation. Exam Type: Rest Stress Radiopharm: Tc-99m Tetrofosmin Tc-99m Tetrofosmin Dosage(mCi): 11.9 35.6 Stress Agent: Treadmill Image Quality The overall study imaging quality was deemed to be fair. The following technical issues were noted: G.I. uptake, Patient motion and Diaphragmatic attenuation. FINDINGS: Left Ventricle Wall Motion: Stress IR:3D - All segments are normal. Rest IR:3D - Gated Stress FBP - Reversibility - Stress IR:3D Stress IR:3D Gated Stress FBP LVEF: 73 % ED Volume: 134 ml ES Volume: 36 ml TID: 0.85 Perfusion Findings Stress IR:3D - Summed Score=0 All segments demonstrate normal perfusion. Rest IR:3D - Summed Score=0 All segments demonstrate normal perfusion. Stress IR:3D Rest IR:3D Summed Score=0 Summed Score=0 LEFT VENTRICLE The left ventricle is normal in size. Left ventricular systolic function is normal. Right Ventricle The right ventricle is normal in size. Right ventricle systolic function is normal. Stress Test Findings: There is no scintigraphic evidence for inducible ischemia. There is no evidence of scarring. * * * Final * * * Stress ECG Report: [facility] Date of service: 04/05/2024 7:41:59 AM Ordering physician: PATRICK IBRAHIM clinical studies specialist: Emily Harrell RN Interpreting physician: Miranda Adam MD Patient name: MR. DEMETRI SANTILLAN Age: 49 years Gender: M Height: 180.34 cm BSA: 2.02 m Weight: 81.65 kg BMI: 25.1 kg/m Indication: Abnormal resting ECG and Encounter for screening for cardiovascular disorders Stress ECG Conclusion: Conclusion: Normal with exception due to borderline ST changes Prior exam comparison: No significant changes Stress ECG Summary: The patient's resting heart rate was 54 bpm and blood pressure was 104/62 mmHg. The patient exercised according to the [place] protocol. The estimated end-exercise MET level achieved using the FRIEND equation * * * was 10.5, which is within the 25th to 50th percentile for age and sex. The estimated end-exercise MET level achieved using the previous ACSM equation was 13.5. The test was terminated due to general fatigue and the total exercise time was 12 minutes and 0 seconds. No symptoms provoked during stress. The maximum heart rate was 166 bpm, which is 97% of the predicted heart rate for age. This is an adequate heart rate response. Peak blood pressure was 142/66 (more content not included)... DIVISION OF RADIOLOGY Provider, [facility]R [facility] - 04/05/2024 * * *Final Report* * * DATE OF EXAM: Apr 05 2024 3:04PM WON 0004 - NM CARDIAC PERF STRESS/EXERCISE / PROCEDURE REASON: Abnormal electrocardiogram * * * * Physician Interpretation * * * * Stress Clinic Supervisor Report: [facility] Date of service: 04/05/2024 7:41:59 AM Supervising physician: Miranda Adam MD PATIENT: Name: MR. DEMETRI SANTILLAN Age: 49 years Gender: M The supervising physician was in the department and immediately available. * * * Final * * * PATIENT: Name: MR. DEMETRI SANTILLAN Age: 49 years Gender: M CONCLUSIONS: 1. SPECT Perfusion Study: Normal. 2. There is no scintigraphic evidence for inducible ischemia. 3. No evidence of scarred myocardium. 4. Left ventricle is normal in size. The left ventricle systolic function is normal. 5. Right ventricle is normal in size. The right ventricle systolic function is normal. 6. This is a low risk scan. Gated Stress FBP LVEF % 73 Prior Study Comparison No prior nuclear cardiology exam available for comparison. Nuclear Med Report:1-Day Gated SPECT Myocardial Perfusion with Exercise Stress: Myocardial perfusion imaging was performed at rest 30 to 60 minutes following the IV injection of the radiotracer. One minute prior to peak exercise, the patient was injected IV with the radiotracer. Gated post stress tomographic imaging was performed 10 to 20 minutes later. See administered radiotracer and doses below. [facility] Date of service: 04/05/2024 7:41:59 AM Ordering Physician: PATRICK IBRAHIM. Requesting Physician: PATRICK IBRAHIM Indication: Assessment for suspected CAD Interpreting physician: Valery Bowens MD Height: 180.34 cm BSA: 2.02 m Weight: 81.65 kg BMI: 25.1 kg/m Imaging Protocol Limitation Reason G.I. uptake, Patient motion and Diaphragmatic attenuation. Exam Type: Rest Stress Radiopharm: Tc-99m Tetrofosmin Tc-99m Tetrofosmin Dosage(mCi): 11.9 35.6 Stress Agent: Treadmill Image Quality The overall study imaging quality was deemed to be fair. The following technical issues were noted: G.I. uptake, Patient motion and Diaphragmatic attenuation. FINDINGS: Left Ventricle Wall Motion: Stress IR:3D - All segments are normal. Rest IR:3D - Gated Stress FBP - Reversibility - Stress IR:3D Stress IR:3D Gated Stress FBP LVEF: 73 % ED Volume: 134 ml ES Volume: 36 ml TID: 0.85 Perfusion Findings Stress IR:3D - Summed Score=0 All segments demonstrate normal perfusion. Rest IR:3D - Summed Score=0 All segments demonstrate normal perfusion. Stress IR:3D Rest IR:3D Summed Score=0 Summed Score=0 LEFT VENTRICLE The left ventricle is normal in size. Left ventricular systolic function is normal. Right Ventricle The right ventricle is normal in size. Right ventricle systolic function is normal. Stress Test Findings: There is no scintigraphic evidence for inducible ischemia. There is no evidence of scarring. * * * Final * * * Stress ECG Report: [facility] Date of service: 04/05/2024 7:41:59 AM Ordering physician: PATRICK IBRAHIM clinical studies specialist: Emily Harrell RN Interpreting physician: Miranda Adam MD Patient name: MR. DEMETRI SANTILLAN Age: 49 years Gender: M Height: 180.34 cm BSA: 2.02 m Weight: 81.65 kg BMI: 25.1 kg/m Indication: Abnormal resting ECG and Encounter for screening for cardiovascular disorders Stress ECG Conclusion: Conclusion: Normal with exception due to borderline ST changes Prior exam comparison: No significant changes Stress ECG Summary: The patient's resting heart rate was 54 bpm and blood pressure was 104/62 mmHg. The patient exercised according to the [place] protocol. The estimated end-exercise MET level achieved using the FRIEND equation * * * was 10.5, which is within the 25th to 50th percentile for age and sex. The estimated end-exercise MET level achieved using the previous ACSM equation was 13.5. The test was terminated due to general fatigue and the total exercise time was 12 minutes and 0 seconds. No symptoms provoked during stress. The maximum heart rate was 166 bpm, which is 97% of the predicted heart rate for age. This is an adequate heart rate response. Peak blood pressure was 142/66 mmHg. The double product achieved was [address]. Resting ECG: Sinus Bradycardia Symptoms at rest: No symptoms Exercise (more content not included)... [facility] Radiology Study observation (narrative) [facility] NM Heart Perfusion W multipl e states of exerciseOrdered By: [facility] Provider on 04-05-2024 [facility] [place] 03-30-2024 [facility] Telephone ([place]) DEMETRI SANTILLAN ([id number]) 1975 M EXC Date Time Provider Department 03/30/24 IVAN LOBO During your visit today, we recorded the following information about you: Rylie Wharton RN 03/30/2024 8:33 AM Addendum Pt calling in as he reviewed his Urine culture results in his MyChart and notes that it appears he does have a UTI. Pt is very uncomfortable. Having pain and burning with urination. He is not feeling well. He is asking that Dr. Lobo please review this as soon as possible. (Per previous notes, it appears pt has been adament about only Dr. Lobo handling this) Pt was upset as he is very anxious, concerned and not feeling well. He would like some answers and what he can expect. Pt does have a referral to a urologist at [facility] on 04/06. Culture >=100,000 CFU/ml Escherichia coli Abnormal Please call pt back after provider review. Pt uses [facility] in [place]. Ivan Lobo DO 03/30/2024 9:27 AM Signed Please call patient and have patient start on antibiotic Ciprofloxacin twice a day with food as below. Please make sure he is drinking at least 80 oz of water a day. Will need a recheck on urine culture in approximately 2 weeks. Likely he will be feeling better within 1-2 days but needs to complete the antibiotic as prescribed. Okay to keep Urologist appointment as well for follow up for the PSA to make sure this is just due to UTI or prostatitis that it was mildly elevated. Also okay to use pyridium rx or AZO over the counter as needed for discomfort- this can turn the urine orange colored Ivan Lobo DO The following approved medication requests have been transmitted electronically. Requested Prescriptions Signed Prescriptions Disp Refills ciprofloxacin HCl (CIPRO) 500 mg tablet 20 tablet 0 Sig: Take 1 tablet by mouth two times a day for 10 days. Authorizing Provider: IVAN LOBO phenazopyridine (PYRIDIUM) 200 mg tablet 30 tablet 0 Sig: Take 1 tablet by mouth three times a day as needed for pain (UTI pain). Authorizing Provider: IVAN LOBO DO Detwiler-Green, Susan LPN 03/30/2024 9:37 AM Signed Pt. informed. Allergies As of Date: 03/30/2024 (No Known Allergies) Date Reviewed: 03/06/2024 Reviewed by: Patrick Ibrahim MD - Fully Assessed Reason for Visit: UTI [116] Order(s):ciprofloxacin HCl (CIPRO) 500 mg tabletTake 1 tablet by mouth two times a day for 10 days.Disp: 20 tabletRfl: 0 phenazopyridine (PYRIDIUM) 200 mg tabletTake 1 tablet by mouth three times a day as needed for pain (UTI pain).Disp: 30 tabletRfl: 0 Prescriptions as of 03/30/2024 - ciprofloxacin HCl (CIPRO) 500 mg tablet Take 1 tablet by mouth two times a day for 10 days. - phenazopyridine (PYRIDIUM) 200 mg tablet Take 1 tablet by mouth three times a day as needed for pain (UTI pain). - lutein 40 mg cap Take 1 capsule by mouth once daily. - valACYclovir (VALTREX) 1 gram tablet Take 1 tablet by mouth three times a day as needed (cold sores). - Bacillus coagulans-Inulin (PROBIOTIC WITH PREBIOTIC) 1 billion-250 cell-mg cap Take 2 capsules by mouth once daily. - biotin 5 mg tab Take 1 tablet by mouth once daily. HOLD for 72 hours before labs - FIBERCON 625 mg tablet 1 daily with 8 oz water, can titrate up to 3 tablets twice daily - Cholecalciferol, Vitamin D3, 25 mcg (1,000 unit) cap Take 1 capsule by mouth once daily. - omega 0-fdo-vwu-fish oil (FISH OIL) 100-160-1,000 mg cap Take 1 capsule by mouth once daily. - Valerian Root 500 mg cap Take 1 capsule by mouth daily at bedtime. - Herbal Drugs (CALMME) tab Take 1 tablet by mouth daily at bedtime. CALM FORTE - magnesium carb,citrate,oxide (MAGNESIUM COMPLEX) 300 mg magnesium tab Take 1 tablet by mouth once daily. - cyanocobalamin (VITAMIN B-12) 1,000 mcg tab Take 1,000 mcg by mouth once daily. 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 PHENAZOPYRIDINE 200 MG TABLET 30 t* 0 03/30/2024 Route: ORAL Sig: Take 1 tablet by mouth three times a day a (more content not included)... Normal [facility] Bacteria Ur Culton Bacteria identified Cx Nom (U) ORGANISM ID: 1 >=100,000 CFU/ml Escherichia coli ORGANISM ID: 1 (ESCHERICHIA COLI) --------- ANTIBIOTIC INTERPRETATION YULIYA STATUS REFERENCE RANGE --------- Ampicillin S <=2 F Susceptible <=8 , Intermediate >8 , Resistant >16 Cefazolin S <=4 F Susceptible 0-16 , Intermediate <0 or >16 , Resistant >16 For uncomplicated urinary tract infections, cefazolin results can be used to predict susceptibility or resistance to cephalexin. Ceftriaxone S <=1 F Susceptible <=1 , Intermediate >1 , Resistant >=4 Cefepime S <=1 F Susceptible <=2 , Susceptible-Dose Dependent >2 , Resistant >=16 Ertapenem S <=0.5 F Susceptible <=0.5 , Intermediate >.5 , Resistant >1 Meropenem S <=0.25 F Susceptible <=1 , Intermediate >1 , Resistant >2 Ampicillin/Sulbact S <=2 F Susceptible <=8 , Intermediate >8 , Resistant >16 Piperacillin/Tazobac S <=4 F Susceptible <16 , Susceptible-Dose Dependent >=16 , Resistant >=32 Gentamicin S <=1 F Susceptible <=2 , Intermediate >2 , Resistant >=8 Tobramycin S <=1 F Susceptible <4 , Intermediate >=4 , Resistant >=8 Trimeth sulfameth S <=20 F Susceptible <=40 , Resistant >40 Ciprofloxacin S <=0.25 F Susceptible <0.5 , Intermediate >=.5 , Resistant >=1 Nitrofurantoin S <=16 F Susceptible <=32 , Intermediate >32 , Resistant >64 Abnormal [facility] Comment on above: Performed By: #### 6 30-4 ####[facility] LABCLIA [id number] [place] [address] [place] Urinalysis complete panel (U )on 03-27-2024 BACTERIA UL 1421.5 uL High Negative [facility] Comment on above: Order Comment: Speci men Type: URINE SPECIMENOrdering Facility: [facility] Address: [address] [place] [address] Performed By: #### 2 4356-8 ####[facility] LABCLIA [id number] [place] [address] [place] Bilirubin Ql (U) Negative Normal Negative [facility] Comment on above: Order Comment: Speci men Type: URINE SPECIMENOrdering Facility: [facility] Address: [address] [place] [address] Performed By: #### 2 4356-8 ####[facility] LABCLIA [id number] [place] [address] [place] Clarity (Unsp spec) Clear Normal Clear [facility] Comment on above: Order Comment: Speci men Type: URINE SPECIMENOrdering Facility: [facility] Address: [address] [place] [address] Performed By: #### 2 4356-8 ####[facility] LABCLIA [id number] [place] [address] [place] [facility] Color (U) Yellow Normal Yellow [facility] Comment on above: Order Comment: Speci men Type: URINE SPECIMENOrdering Facility: [facility] Address: [address] [place] [address] Performed By: #### 2 4356-8 ####[facility] LABCLIA [id number] [place] [address] [place] Epithelial cells LM.HPF (Urine sed) [#/Area] None Seen Normal [facility] Comment on above: Order Comment: Speci men Type: URINE SPECIMENOrdering Facility: [facility] Address: [address] [place] [address] Performed By: #### 2 4356-8 ####[facility] LABCLIA [id number] [address] STATES OF [facility] Glucose Test strip (U) [Mass/Vol] Negative Normal Negative [facility] Comment on above: Order Comment: Speci men Type: URINE SPECIMENOrdering Facility: [facility] Address: [address] [place] [address] Performed By: #### 2 4356-8 ####[facility] LABCLIA [id number] [place] [address] [place] Hemoglobin Ql (U) Negative Normal Negative [facility] Comment on above: Order Comment: Speci men Type: URINE SPECIMENOrdering Facility: [facility] Address: [address] [place] [address] Performed By: #### 2 4356-8 ####[facility] LABCLIA [id number] [place] [address] [place] Hyaline casts (Urine sed) [#/Area] 1-3 /LPF Abnormal 0 /LPF [facility] Comment on above: Order Comment: Speci men Type: URINE SPECIMENOrdering Facility: [facility] Address: [address] [place] [address] Performed By: #### 2 4356-8 ####[facility] LABCLIA [id number] [place] [address] [place] Ketones Ql (U) Negative Normal Negative [facility] Comment on above: Order Comment: Speci men Type: URINE SPECIMENOrdering Facility: [facility] Address: [address] [place] [address] Performed By: #### 2 4356-8 ####[facility] LABCLIA [id number] [place] [address] [place] Leukocyte esterase Test strip Ql (U) 1+ Abnormal Negative [facility] Comment on above: Order Comment: Speci men Type: URINE SPECIMENOrdering Facility: [facility] Address: [address] [place] [address] Performed By: #### 2 4356-8 ####[facility] LABCLIA [id number] [place] [address] [place] Nitrite Ql (U) Negative Normal Negative [facility] Comment on above: Order Comment: Speci men Type: URINE SPECIMENOrdering Facility: [facility] Address: [address] [place] [address] Performed By: #### 2 4356-8 ####[facility] LABCLIA [id number] [place] [address] [place] pH (U) 6.0 [pH] Normal <8.5 [facility] Comment on above: Order Comment: Speci men Type: URINE SPECIMENOrdering Facility: [facility] Address: [address] [place] [address] Performed By: #### 2 4356-8 ####[facility] LABCLIA [id number] [place] [address] [place] Protein (U) [Mass/Vol] Negative Normal Negative [facility] Comment on above: Order Comment: Speci men Type: URINE SPECIMENOrdering Facility: [facility] Address: [address] [place] [address] Performed By: #### 2 4356-8 ####[facility] LABIA [id number] [place] [address] [place] RBC LM.HPF (Urine sed) [#/Area] 0-2 /HPF Normal 0-2 /HPF [facility] Comment on above: Order Comment: Speci men Type: URINE SPECIMENOrdering Facility: [facility] Address: [address] [place] [address] Performed By: #### 2 4356-8 ####[facility] LABIA [id number] [place] [address] [place] Specific gravity (U) [Rel density] 1.013 Normal 1.005-1.030 [facility] Comment on above: Order Comment: Speci men Type: URINE SPECIMENOrdering Facility: [facility] Address: [address] [place] [address] Performed By: #### 2 4356-8 ####[facility] LABIA [id number] [place] [address] [place] Urobilinogen Ql (U) 0.2 EU/dL Normal 0.2-1.0 EU/dL [facility] Comment on above: Order Comment: Speci men Type: URINE SPECIMENOrdering Facility: [facility] Address: [address] [place] [address] Performed By: #### 2 4356-8 ####[facility] LABCLIA [id number] [place] [address] [place] WBC LM.HPF (Urine sed) [#/Area] 11-20 /HPF Abnormal 0-5 /HPF [facility] Comment on above: Order Comment: Speci men Type: URINE SPECIMENOrdering Facility: [facility] Address: [address] [place] [address] Performed By: #### 2 4356-8 ####[facility] LABCLIA [id number] [place] [id number] [place] CNPNon 03-26-2024 CNPN Telephone (4CQ) DEMETRI SANTILLAN ([id number]) 1975 M EXC Date Time Provider Department 03/26/24 IVAN LOBO 4CQ During your visit today, we recorded the following information about you: Tamanna Hernandes 03/26/2024 9:41 AM Signed Pt asking if Yamil is able to get him OLVIN to go over recent test results as he is anxious and has some concerns. Patient refused [employer] and only wants Yamil. Please advise. Thank you Taylor Martínez RN 03/26/2024 4:09 PM Signed Patient calls back again for lab results from PCP. Declining [employer] review. Patient reports he is EXPECTING a call back from PCP personally by the end of the day. If PCP isn't accessible she can feel free to refer him to someone else that is. C-reactive protein is ordered by Dr. Teressa Pulido. Instructed patient to contact that office for those results. Disconnected the line as patient wasn't happy with anything I tried to explain. GALLO Triana Jordan L, DO 03/26/2024 4:53 PM Signed Please clarify what lab results he is concerned about His urinalysis that he just did showed white blood cells and leukocyte esterase which is made by white blood cells as well as bacteria. This needs to be repeated as a clean catch along with a urine culture since it isn't showing me a full picture of a UTI, it needs to be cultured to see if any bacteria grows out. The PSA lab is improved at 5.07 (vs. 7.71 at last lab 1 month ago), but it is still elevated. This needs to be seen by Urologist for follow up and opinion IF the urine culture is negative for a UTI. A UTI/prostatitis has a chance of causing an elevated PSA lab DO Reinaldo Cm Amanda, RN 03/27/2024 8:27 AM Signed Called and left a voicemail for the Patient to call back and ask for a nurse to receive the providers message. GALLO Zhao Beth, LPN 03/27/2024 9:28 AM Signed Patient returned call and went over results, notes from Dr Lobo, had to repeat several times to do repeat urine and culture. Patient said he wants to have a face to face to discuss this situation. Explained the need to do repeat urine and culture to see what the urine grows, if it is a UTI and then he wanted to know what he would be treated with. Explained again need the urine culture done to see what grows to see what he gets treated with. Patient asking for names for the Urologist referral please. Ivan Lobo DO 03/27/2024 10:15 AM Signed Would recommend the Urologists through [facility] in [facility] Such as DO Gabby Pace Dr., Dr., Dr., Dr., Susan LPN 03/27/2024 10:20 AM Signed Pt. informed via My Chart. Allergies As of Date: 03/26/2024 (No Known Allergies) Date Reviewed: 03/06/2024 Reviewed by: Patrick Ibrahim MD - Fully Assessed Reason for Visit: Results [95] Primary Visit Diagnosis:Abnormal PSA [R97.20] Other Visit Diagnosis:Abnormal urinalysis [R82.90] Order(s):URINALYSIS, WITH MICROSCOPIC [SQUAWMIC] Order #: [id number] FUTURE BACTERIAL CULTURE, URINE [SQURCUL] Order #: [id number] FUTURE Prescriptions as of 03/27/2024 - lutein 40 mg cap Take 1 capsule by mouth once daily. - valACYclovir (VALTREX) 1 gram tablet Take 1 tablet by mouth three times a day as needed (cold sores). - Bacillus coagulans-Inulin (PROBIOTIC WITH PREBIOTIC) 1 billion-250 cell-mg cap Take 2 capsules by mouth once daily. - biotin 5 mg tab Take 1 tablet by mouth once daily. HOLD for 72 hours before labs - FIBERCON 625 mg tablet 1 daily with 8 oz water, can titrate up to 3 tablets twice daily - Cholecalciferol, Vitamin D3, 25 mcg (1,000 unit) cap Take 1 capsule by mouth once daily. - omega 9-aht-veq-fish oil (FISH OIL) 100-160-1,000 mg cap Take 1 capsule by mouth once daily. - Valerian Root 500 mg cap Take 1 capsule by mouth daily at bedtime. - Herbal Drugs (CALMME) tab Take 1 tablet by mouth daily at bedtime. CALM FORTE - magnesium carb,citrate,oxide (MAGNESIUM COMPLEX) 300 mg magnesium tab Take 1 tablet by mouth once daily. - cyanocobalamin (VITAMIN B-12) 1,000 mcg tab Take 1,000 mcg by mouth once daily. 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 Normal [facility] CRP SerPl-mCncon 01-08-2025 CRP [Mass/Vol] 3.6 mg/dL High <0.9 [facility] Comment on above: Order Comment: Speci men Type: BLOOD SPECIMEN [facility] Address: [address] [place] [address] Performed By: #### 1 7859-0, 1988-05 #### [facility] CLIA [id number] [facility] [facility] [address] [place] [address] [place] PSA/PROSTATE SPECIFIC ANTIGE N SCREENINGon 03-24-2024 Prostate specific Ag [Mass/Vol] 5.07 ng/mL High <2.60 [facility] Comment on above: Order Comment: Speci men Type: BLOOD SPECIMENOrdering Facility: [facility] Address: [address] [place] [address] Result Comment: Tota l PSA test methodology used is the Electrochemiluminescence Immunoassay by [employer]. Total PSA values by differing methodologies cannot be interchanged. For an individual patient, the significance of a PSA level should be interpreted in a broad clinical context, including age, race, family history, digital rectal exam, prostate size, results of prior testing (prostate biopsy, free PSA, PCA3), and use of 5-alpha reductase inhibitors. Considering the high incidence of asymptomatic cancer in the general population that may not pose an ultimate risk to a patient, the decision to recommend urological evaluation or prostate biopsy should be individualized after consideration of all these factors. REFERENCE: Quita Dixon M.D., M.P.H., Joel Walter M.D., Ph.D., Keron Mina M.D., Jessica Graf, M.P.H., Elicia Estrada, Sc.D. Effect of Verification Bias on Screening for Prostate Cancer by Measurement of Prostatic Specific Antigen. N Engl J Med 2003,349:335-42. Performed By: #### P SAS1 ####[facility] LABCLIA [id number] [facility] [place] [address] [place] Urinalysis complete panel (U )on 03-24-2024 BACTERIA UL 7852.8 uL High Negative [facility] Comment on above: Order Comment: Speci men Type: URINE SPECIMEN [facility] Address: [address] [place] [address] Performed By: #### 2 4356-8 #### [facility] CLIA [id number] [address] [place] [address] [place] Bilirubin Ql (U) Negative Normal Negative [facility] Comment on above: Order Comment: Speci men Type: URINE SPECIMEN [facility] Address: [address] [place] [address] Performed By: #### 2 4356-8 #### [facility] CLIA [id number] [address] [place] [address] [place] Clarity (Unsp spec) Clear Normal Clear [facility] Comment on above: Order Comment: Speci men Type: URINE SPECIMEN [facility] Address: [address] [place] [address] Performed By: #### 2 4356-8 #### [facility] CLIA [id number] [address] [place] [address] [place] Color (U) Yellow Normal Yellow [facility] Comment on above: Order Comment: Speci men Type: URINE SPECIMEN [facility] Address: [address] [place] [address] Performed By: #### 2 4356-8 #### [facility] CLIA [id number] [address] [place] [address] [place] Epithelial cells LM.HPF (Urine sed) [#/Area] None Seen Normal [facility] Comment on above: Order Comment: Speci men Type: URINE SPECIMEN [facility] Address: [address] [place] [address] Performed By: #### 2 4356-8 #### [facility] CLIA [id number] [address] [place] [address] [place] Glucose Test strip (U) [Mass/Vol] Negative Normal Negative [facility] Comment on above: Order Comment: Speci men Type: URINE SPECIMEN [facility] Address: [address] [place] [address] Performed By: #### 2 4356-8 #### [facility] CLIA [id number] [address] [place] [address] [place] Hemoglobin Ql (U) Negative Normal Negative [facility] Comment on above: Order Comment: Speci men Type: URINE SPECIMEN [facility] Address: [address] [place] [address] Performed By: #### 2 4356-8 #### [facility] CLIA [id number] [address] [place] [address] [place] Hyaline casts (Urine sed) [#/Area] 0 /[LPF] Normal 0 /LPF [facility] Comment on above: Order Comment: Speci men Type: URINE SPECIMEN [facility] Address: [address] [place] [address] Performed By: #### 2 4356-8 #### [facility] CLIA [id number] [address] [place] [address] [place] Ketones Ql (U) Negative Normal Negative [facility] Comment on above: Order Comment: Speci men Type: URINE SPECIMEN [facility] Address: [address] [place] [address] Performed By: #### 2 4356-8 #### [facility] CLIA [id number] [address] [place] [address] [place] Leukocyte esterase Test strip Ql (U) 2+ Abnormal Negative [facility] Comment on above: Order Comment: Speci men Type: URINE SPECIMEN [facility] Address: [address] [place] [address] Performed By: #### 2 4356-8 #### [facility] CLIA [id number] [address] [place] [address] [place] Nitrite Ql (U) Negative Normal Negative [facility] Comment on above: Order Comment: Speci men Type: URINE SPECIMEN [facility] Address: [address] [place] [address] Performed By: #### 2 4356-8 #### [facility] CLIA [id number] [address] [place] [address] [place] pH (U) 5.5 [pH] Normal <8.5 [facility] Comment on above: Order Comment: Speci men Type: URINE SPECIMEN [facility] Address: [address] [place] [address] Performed By: #### 2 4356-8 #### [facility] CLIA [id number] [address] [place] [address] [place] Protein (U) [Mass/Vol] Negative Normal Negative [facility] Comment on above: Order Comment: Speci men Type: URINE SPECIMEN [facility] Address: [address] [place] [address] Performed By: #### 2 4356-8 #### [facility] CLIA [id number] [address] [place] [address] [place] RBC LM.HPF (Urine sed) [#/Area] 0-2 /HPF Normal 0-2 /HPF [facility] Comment on above: Order Comment: Speci men Type: URINE SPECIMEN [facility] Address: [address] [place] [address] Performed By: #### 2 4356-8 #### [facility] CLIA [id number] [address] [place] [address] [place] Specific gravity (U) [Rel density] 1.020 Normal 1.005-1.030 [facility] Comment on above: Order Comment: Speci men Type: URINE SPECIMEN [facility] Address: [address] [place] [address] Performed By: #### 2 4356-8 #### [facility] CLIA [id number] [address] [place] [address] [place] Urobilinogen Ql (U) 0.2 EU/dL Normal 0.2-1.0 EU/dL [facility] Comment on above: Order Comment: Speci men Type: URINE SPECIMEN [facility] Address: [address] [place] [address] Performed By: #### 2 4356-8 #### [facility] CLIA [id number] [address] [place] [address] [place] WBC LM.HPF (Urine sed) [#/Area] /[HPF] Abnormal 0-5 /HPF [facility] Comment on above: Order Comment: Speci men Type: URINE SPECIMEN [facility] Address: [address] [place] [address] Performed By: #### 2 4356-8 #### [facility] CLIA [id number] [address] [place] [address] [place] 03-03-2024 CNPN Telephone (FAMPWS) DEMETRI SANTILLAN ([id number]) 1975 M EXC Date Time Provider Department 03/03[facility]24 [facility] During your visit today, we recorded the following information about you: Laura You 03/03/2024 11:07 AM Signed Patient called requesting to review his labs wit pcp olvin he does not want to speak to a nurse and declined apt with [employer] Please advise Ivan Lobo DO 03/03/2024 11:35 AM Signed Please inform patient that his elevated PSA levels on 02/17 at >7 and recheck PSA level on 03/01 is improved to the 4's range. Would recommend rechecking PSA in 2-3 weeks again. If he is having increased urination, urinary frequency or urgency, can check UA and treat for potential acute prostatitis (inflammation/infection of prostate). If he isn't having any of these symptoms, can just wait and recheck labs and UA in 2-3 weeks DO Jeff Cm Rachel L, MA 03/03/2024 11:43 AM Signed Patient notified and verbalized understanding. Li Chaudhry MA Allergies As of Date: 03/03/2024 (No Known Allergies) Date Reviewed: 02/18/2024 Reviewed by: Delia Pierre LPN - Fully Assessed Reason for Visit: Patient Question [1477] Primary Visit Diagnosis:Elevated PSA [R97.20] Order(s):PSA/PROSTATE SPECIFIC ANTIGEN SCREENING [SQPSAS1] Order #: [id number] FUTURE URINALYSIS, WITH MICROSCOPIC [SQUAWMIC] Order #: [id number] FUTURE Prescriptions as of 03/03/2024 - valACYclovir (VALTREX) 1 gram tablet Take 1 tablet by mouth three times a day as needed (cold sores). - Bacillus coagulans-Inulin (PROBIOTIC WITH PREBIOTIC) 1 billion-250 cell-mg cap Take 2 capsules by mouth once daily. - biotin 5 mg tab Take 1 tablet by mouth once daily. HOLD for 72 hours before labs - FIBERCON 625 mg tablet 1 daily with 8 oz water, can titrate up to 3 tablets twice daily - Cholecalciferol, Vitamin D3, 25 mcg (1,000 unit) cap Take 1 capsule by mouth once daily. - omega 8-mnu-lpd-fish oil (FISH OIL) 100-160-1,000 mg cap Take 1 capsule by mouth once daily. - Valerian Root 500 mg cap Take 1 capsule by mouth daily at bedtime. - Herbal Drugs (CALMME) tab Take 1 tablet by mouth daily at bedtime. CALM FORTE - magnesium carb,citrate,oxide (MAGNESIUM COMPLEX) 300 mg magnesium tab Take 1 tablet by mouth once daily. - cyanocobalamin (VITAMIN B-12) 1,000 mcg tab Take 1,000 mcg by mouth once daily. 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 Also his thyroid labs were all normal. His PSA was slightly elevated. I would like him to have testing with another repeat lab when able. Order placed DO Boom Cm Barbara, LPN 03/01/2024 1:49 PM Signed TC to ptOdessa BRADSHAW to call office, ask for triage nurse to get results. FLACA Duenas Beth, LPN 03/01/2024 4:28 PM Signed Patient returned call and went over results, notes from Dr Lobo with understanding. He will come in tomorrow and have other lab completed. Allergies As of Date: 03/01/2024 (No Known Allergies) Date Reviewed: 02/18/2024 Reviewed by: Delia Pierre LPN - Fully Assessed Reason for Visit: Results [95] Primary Visit Diagnosis:Elevated PSA [R97.20] Order(s):PROSTATE-SPECIFIC ANTIGEN DIAGNOSTIC [SQPSA] Order #: [id number] FUTURE Prescriptions as of 03/01/2024 - valACYclovir (VALTREX) 1 gram tablet Take 1 tablet by mouth three times a day as needed (cold sores). - Bacillus coagulans-Inulin (PROBIOTIC WITH PREBIOTIC) 1 billion-250 cell-mg cap Take 2 capsules by mouth once daily. - biotin 5 mg tab Take 1 tablet by mouth once daily. HOLD for 72 hours before labs - FIBERCON 625 mg tablet 1 daily with 8 oz water, can titrate up to 3 tablets twice daily - Cholecalciferol, Vitamin D3, 25 mcg (1,000 unit) cap Take 1 capsule by mouth once daily. - omega 1-mdt-nuk-fish oil (FISH OIL) 100-160-1,000 mg cap Take 1 capsule by mouth once daily. - Valerian Root 500 mg cap Take 1 capsule by mouth daily at bedtime. - Herbal Drugs (CALMME) tab Take 1 tablet by mouth daily at bedtime. CALM FORTE - magnesium carb,citrate,oxide (MAGNESIUM COMPLEX) 300 mg magnesium tab Take 1 tablet by mouth once daily. - cyanocobalamin (VITAMIN B-12) 1,000 mcg tab Take 1,000 mcg by mouth once daily. 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 Total PSA values by differing methodologies cannot be interchanged. For an individual patient, the significance of a PSA level should be interpreted in a broad clinical context, including age, race, family history, digital rectal exam, prostate size, results of prior testing (prostate biopsy, free PSA, PCA3), and use of 5-alpha reductase inhibitors. Considering the high incidence of asymptomatic cancer in the general population that may not pose an ultimate risk to a patient, the decision to recommend urological evaluation or prostate biopsy should be individualized after consideration of all these factors. REFERENCE: Quita Dixon M.D., M.P.H., Joel Walter M.D., Ph.D., Keron Mina M.D., Jessica Graf, M.P.H., Elicia Estrada, Dileep. Effect of Verification Bias on Screening for Prostate Cancer by Measurement of Prostatic Specific Antigen. N Engl J Med 2003,349:335-42. Performed By: #### 1 7859-0, 1988-05 #### [facility] CLIA [id number] [place] H pylori Ag Stl Ql IAon H. pylori Ag IA Ql (Stl) H.PYLORI EIA RESULT: Negative for Helicobacter pylori antigen by EIA Normal [facility] Comment on above: Performed By: #### 1 7780-8 ####[facility] [id number] [address] OF [facility] CNOVon 02-18-2024 CNOV Office Visit ([facility] ) AILYNDEMETRI FERRO ([id number]) 1975 M EXC Date Time Provider Department 02/18/24 8:20 AM IVAN LOBO [facility] During your visit today, we recorded the following information about you: Temperature Pulse Respiration Blood pressure 97 degrees 64/minute 16/minute 100/60 Weight 84.4 kg Ivan Lobo, DO 02/18/2024 8:45 AM Signed Your Celiac HLA type is positive for category 3, so you are at risk of gluten intolerance Increase your vitamin D3 by extra 1000 international unit(s) a day Ivan Lobo, DO 02/18/2024 9:17 AM Signed CC: Demetri Santillan is a 48 year old male who presents to the office for lab review. HPI: Recently seen in the office for physical and had labs obtained. Found to have slightly low normal omega % as well as vitamin D deficiency at 37 and H pylori blood IgG positive. No known hx of H pylori infection. He was also found to have + type 3 for HLA type for Celiac risk He is overall changing his exercise patterns and increasing muscle building exercise Recurrent cold sores, interested in a medication for a flare up PAST MEDICAL HISTORY Diagnosis Date Family history of colon cancer mother and paternal aunt Multiple lipomas Multiple nevi 2 x 2 mm on right upper back x 2, 7 x 2 mm on right lower back/flank Vitamin D insufficiency PAST SURGICAL HISTORY Procedure Laterality Date APPENDECTOMY 1999 ruptured, emergent, sepsis COLONOSCOPY 08/02/2015 Colonoscopy (MAC), 1 hyperplastic polyp COLONOSCOPY GEN ANES 08/07/2020 Repeat in 5 years FRACTURE SURGERY Left 2010 ulnar PAST SURGICAL HISTORY OF 2006 ACL repair of Right knee Current Outpatient Medications Medication Sig valACYclovir (VALTREX) 1 gram tablet Take 1 tablet by mouth three times a day as needed (cold sores). Bacillus coagulans-Inulin (PROBIOTIC WITH PREBIOTIC) 1 billion-250 cell-mg cap Take 2 capsules by mouth once daily. biotin 5 mg tab Take 1 tablet by mouth once daily. HOLD for 72 hours before labs FIBERCON 625 mg tablet 1 daily with 8 oz water, can titrate up to 3 tablets twice daily Cholecalciferol, Vitamin D3, 25 mcg (1,000 unit) cap Take 1 capsule by mouth once daily. omega 1-hpx-apb-fish oil (FISH OIL) 100-160-1,000 mg cap Take 1 capsule by mouth once daily. Valerian Root 500 mg cap Take 1 capsule by mouth daily at bedtime. Herbal Drugs (CALMME) tab Take 1 tablet by mouth daily at bedtime. CALM FORTE magnesium carb,citrate,oxide (MAGNESIUM COMPLEX) 300 mg magnesium tab Take 1 tablet by mouth once daily. cyanocobalamin (VITAMIN B-12) 1,000 mcg tab Take 1,000 mcg by mouth once daily. No current facility-administered medications for this visit. ALLERGIES No Known Allergies Social History Tobacco Use Smoking status: Never Smokeless tobacco: Never Tobacco comments: secondhand smoke exposure as a child Vaping Use Vaping status: Never Used Substance Use Topics Alcohol use: Yes Alcohol/week: 4.0 standard drinks of alcohol Types: 4 Glasses of Wine (5oz) per week Comment: 3-4 glasses of wine and rare beer, 2023 decreased further to 3 glasses a week, never > 2 glasses, and couple of times a week. Drug use: No ROS: See HIP PE: BP 100/60 Pulse 64 Temp (Src) 97 (Left Tympanic) Resp 16 Wt 186 lb (84.4kg) Gen: AANDOX3, NAD, non-toxic appearing Discussion visit Cold sores on upper lips on right ASSESSMENT/PLAN: 1. 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 Helicobacter pylori ab+ - ICD9: 795.79, ICD10: R76.8 Check for active infection in stool Has had bloating - HELICOBACTER PYLORI ANTIGEN BY EIA, STOOL 3. Screening for prostate cancer - ICD9: V76.44, ICD10: Z12.5 - Counseled on healthy diet and regular exercise - PSA/PROSTATE SPECIFIC ANTIGEN SCREENING 4. Borderline abnormal thyroid function test - ICD9: 794.5, ICD10: R94.6 Check labs Was on biotin when last labs checked - THYROID STIMULATING HORMONE - T4 FREE/FREE THYROXINE - T3, FREE 5. Bloating - ICD9: 787.3, ICD10: R14.0 See above 6. Vitamin D deficiency - ICD9: 268.9, ICD10: E55.9 Increase dose of supplement as d/w him today Ivan Lobo DO I spent 35 minutes in the visit, with more than 50% of the total [id number] time of the visit in counseling / coordination of care. Return if no improvement. Follow up with Ivan Lobo DO. To ER if develops chest pain, shortness of breath, . Discussed risks, benefits, alternatives, and potential side effects of medications. Patient/Guardian expressed understanding and agreed with the plan. See patient instructions. Ivna Lobo DO [address] [place] [address] Queta Robert 02/20/2024 2:04 AM Signed Addended by: KATE (LAB)QUETA on: 02/20/2024 02:04 AM Mo (more content not included)... Normal [facility] PSA/PROSTATE SPECIFIC ANTIGE N SCREENINGon 02-18-2024 Prostate specific Ag [Mass/Vol] 7.71 ng/mL High <2.60 [facility] Comment on above: Order Comment: Speci men Type: BLOOD SPECIMENOrdering Facility: [facility] Address: [address] [place] [address] [place] [address] Result Comment: Tota l PSA test methodology used is the Electrochemiluminescence Immunoassay by [employer]. Total PSA values by differing methodologies cannot be interchanged. For an individual patient, the significance of a PSA level should be interpreted in a broad clinical context, including age, race, family history, digital rectal exam, prostate size, results of prior testing (prostate biopsy, free PSA, PCA3), and use of 5-alpha reductase inhibitors. Considering the high incidence of asymptomatic cancer in the general population that may not pose an ultimate risk to a patient, the decision to recommend urological evaluation or prostate biopsy should be individualized after consideration of all these factors. REFERENCE: Quita Dixon M.D., M.P.H., Joel Walter M.D., Ph.D., Keron Mina M.D., Jessica Graf, M.P.H., Elicia Estrada, Sc.Aixa. Effect of Verification Bias on Screening for Prostate Cancer by Measurement of Prostatic Specific Antigen. N Engl J Med 2003,349:335-42. Performed By: #### P SAS1 ####[facility] [id number] [place] [address] [place] T3Free SerPl-mCncon 02-18-20 24 Free T3 [Mass/Vol] 3.5 pg/mL Normal 2.3-4.1 [facility] Comment on above: Order Comment: Speci men Type: BLOOD SPECIMENOrdering Facility: [facility] Address: [address] [place] [address] Performed By: #### 3 024-7, 3016-3, 3051-0 ####[facility] [id number] [place] [id number] [place] T4 Free SerPl-mCncon 024 Free T4 [Mass/Vol] 1.1 ng/dL Normal 0.9-1.7 [facility] Comment on above: Order Comment: Speci men Type: BLOOD SPECIMENOrdering Facility: [facility] Address: [address] [place] [address] Performed By: #### 3 024-7, 3016-3, 3050 ####[facility]IA [id number] [place] [address] [place] [facility] 02-18-2024 TSH Qn 1.940 m[IU]/L Normal 0.270-4.200 [facility] Comment on above: Order Comment: Speci men Type: BLOOD SPECIMENOrdering Facility: [facility] Address: [address] [place] [address] Performed By: #### 3 024-7, 6-3, 0 ####[facility]CLIA [id number] [address] 25([place])D3 [facility] 2023 25-hydroxyvitamin D3 [Mass/Vol] 37.4 ng/mL Normal 31.0-80.0 [facility] Comment on above: Order Comment: Speci [facility] Type: BLOOD SPECIMEN [facility] Address: [address] [place] [address] Result Comment: Clas sification of 25 [place] Vitamin D status: Deficiency/Insufficiency: < or = 30 ng/ml. Sufficiency/Optimal Levels: 31-80 ng/mL Toxicity: > 100 ng/mL. Test performed by chemiluminescent immunoassay. Performed By: #### 1 7859-0, 1988-05 #### [facility] CLIA [id number] [address] [place] [address] [place] ALLERGEN FOOD PANEL RL1on Barley IgE Qn (S) <0.35 Normal <0.35 [facility] Comment on above: Order Comment: Speci [facility] Type: BLOOD SPECIMENOrdering Facility: [facility] Address: [address] [place] [address] Performed By: #### L [id number] ####[facility] [id number] [address] [place] Barley IgE RAST class (S) Class 0 Normal Class 0 [facility] Comment on above: Order Comment: Speci men Type: BLOOD SPECIMENOrdering Facility: [facility] Address: [address] [place] [address] Performed By: #### L [id number] ####[facility] [id number] [place] [address] [place] Sterling IgE Qn (S) <0.35 Normal <0.35 [facility] Comment on above: Order Comment: Speci men Type: BLOOD SPECIMENOrdering Facility: [facility] Address: [address] [place] [address] Performed By: #### L [id number] ####[facility] [id number] [place] [address] [place] Sterling IgE RAST class (S) Class 0 Normal Class 0 [facility] Comment on above: Order Comment: Speci men Type: BLOOD SPECIMENOrdering Facility: [facility] Address: [address] [place] [address] Performed By: #### L [id number] ####[facility]CLIA [id number] [place] [address] [place] Cow milk IgE Qn (S) <0.35 Normal <0.35 [facility] Comment on above: Order Comment: Speci men Type: BLOOD SPECIMENOrdering Facility: [facility] Address: [address] [place] [address] Performed By: #### L [id number] ####[facility]IA [id number] [place] [address] [place] Cow milk IgE RAST class (S) Class 0 Normal Class 0 [facility] Comment on above: Order Comment: Speci men Type: BLOOD SPECIMENOrdering Facility: [facility] Address: [address] [place] [address] Performed By: #### L [id number] ####[facility]CLIA [id number] [place] [address] [place] Egg white IgE Qn (S) <0.35 Normal <0.35 [facility] Comment on above: Order Comment: Speci men Type: BLOOD SPECIMENOrdering Facility: [facility] Address: [address] [place] [address] Performed By: #### L [id number] ####[facility]CLIA [id number] [place] [address] [place] Egg white IgE RAST class (S) Class 0 Normal Class 0 [facility] Comment on above: Order Comment: Speci men Type: BLOOD SPECIMENOrdering Facility: [facility] Address: [address] [place] [address] Performed By: #### L [id number] ####[facility]CLIA [id number] [place] [address] [place] Gluten IgE Qn (S) <0.35 Normal <0.35 [facility] Comment on above: Order Comment: Speci men Type: BLOOD SPECIMENOrdering Facility: [facility] Address: [address] [place] [address] Performed By: #### L [id number] ####[facility] [id number] [place] [address] [place] Gluten IgE RAST class (S) Class 0 Normal Class 0 [facility] Comment on above: Order Comment: Speci men Type: BLOOD SPECIMENOrdering Facility: [facility] Address: [address] [place] [address] Performed By: #### L [id number] ####[facility]IA [id number] [place] [address] [place] Oat IgE Qn (S) <0.35 Normal <0.35 [facility] Comment on above: Order Comment: Speci men Type: BLOOD SPECIMENOrdering Facility: [facility] Address: [address] [place] [address] Performed By: #### L [id number] ####[facility]IA [id number] [place] [address] [place] Oat IgE RAST class (S) Class 0 Normal Class 0 [facility] Comment on above: Order Comment: Speci men Type: BLOOD SPECIMENOrdering Facility: [facility] Address: [address] [place] [address] Performed By: #### L [id number] ####[facility]IA [id number] [place] [address] [place] Durango IgE Qn (S) <0.35 Normal <0.35 [facility] Comment on above: Order Comment: Speci men Type: BLOOD SPECIMENOrdering Facility: [facility] Address: [address] [place] [address] Performed By: #### L [id number] ####[facility]CLIA [id number] [place] [address] [place] IgE RAST class (S) Class 0 Normal Class 0 [facility] Comment on above: Order Comment: Speci men Type: BLOOD SPECIMENOrdering Facility: [facility] Address: [address] [place] [address] Performed By: #### L [id number] ####[facility] [id number] [place] [address] [place] Peanut IgE Qn (S) <0.35 Normal <0.35 [facility] Comment on above: Order Comment: Speci men Type: BLOOD SPECIMENOrdering Facility: [facility] Address: [address] [place] [address] Performed By: #### L [id number] ####[facility]CLIA [id number] [place] [address] [place] Peanut IgE RAST class (S) Class 0 Normal Class 0 [facility] Comment on above: Order Comment: Speci men Type: BLOOD SPECIMENOrdering Facility: [facility] Address: [address] [place] [address] Performed By: #### L [id number] ####[facility]CLIA [id number] [place] [address] [place] Pork IgE Qn (S) <0.35 Normal <0.35 [facility] Comment on above: Order Comment: Speci men Type: BLOOD SPECIMENOrdering Facility: [facility] Address: [address] [place] [address] Performed By: #### L [id number] ####[facility]CLIA [id number] [place] [address] [place] Pork IgE RAST class (S) Class 0 Normal Class 0 [facility] Comment on above: Order Comment: Speci men Type: BLOOD SPECIMENOrdering Facility: [facility] Address: [address] [place] [address] Performed By: #### L [id number] ####[facility]CLIA [id number] [place] [address] [place] Potato IgE Qn (S) <0.35 Normal <0.35 [facility] Comment on above: Order Comment: Speci men Type: BLOOD SPECIMENOrdering Facility: [facility] Address: [address] [place] [address] Performed By: #### L [id number] ####[facility]CLIA [id number] [place] [address] [place] Potato IgE RAST class (S) Class 0 Normal Class 0 [facility] Comment on above: Order Comment: Speci men Type: BLOOD SPECIMENOrdering Facility: [facility] Address: [address] [place] [address] Performed By: #### L [id number] ####[facility]CLIA [id number] [place] [address] [place] Rice IgE Qn (S) <0.35 Normal <0.35 [facility] Comment on above: Order Comment: Speci men Type: BLOOD SPECIMENOrdering Facility: [facility] Address: [address] [place] [address] Performed By: #### L [id number] ####[facility]CLIA [id number] [place] [address] [place] Rice IgE RAST class (S) Class 0 Normal Class 0 [facility] Comment on above: Order Comment: Speci men Type: BLOOD SPECIMENOrdering Facility: [facility] Address: [address] [place] [address] Performed By: #### L [id number] ####[facility]CLIA [id number] [address] [place] IgE Qn (S) <0.35 Normal <0.35 [facility] Comment on above: Order Comment: Speci men Type: BLOOD SPECIMENOrdering Facility: [facility] Address: [address] [place] [address] Performed By: #### L [id number] ####[facility]CLIA [id number] [place] [address] [place] IgE RAST class (S) Class 0 Normal Class 0 [facility] Comment on above: Order Comment: Speci men Type: BLOOD SPECIMENOrdering Facility: [facility] Address: [address] [place] [address] Performed By: #### L [id number] ####[facility]CLIA [id number] [place] [address] [place] Soybean IgE Qn (S) <0.35 Normal <0.35 [facility] Comment on above: Order Comment: Speci men Type: BLOOD SPECIMENOrdering Facility: [facility] Address: [address] [place] [address] Performed By: #### L [id number] ####[facility]CLIA [id number] [place] [address] [place] Soybean IgE RAST class (S) Class 0 Normal Class 0 [facility] Comment on above: Order Comment: Speci men Type: BLOOD SPECIMENOrdering Facility: [facility] Address: [address] [place] [address] Performed By: #### L [id number] ####[facility]CLIA [id number] [place] [address] [place] Tomato IgE Qn (S) <0.35 Normal <0.35 [facility] Comment on above: Order Comment: Speci men Type: BLOOD SPECIMENOrdering Facility: [facility] Address: [address] [place] [address] Performed By: #### L [id number] ####[facility]CLIA [id number] [place] [address] [place] Tomato IgE RAST class (S) Class 0 Normal Class 0 [facility] Comment on above: Order Comment: Speci men Type: BLOOD SPECIMENOrdering Facility: [facility] Address: [address] [place] [address] Performed By: #### L [id number] ####[facility] LABCLIA [id number] [place] [address] [place] Wheat IgE Qn (S) <0.35 Normal <0.35 [facility] Comment on above: Order Comment: Speci men Type: BLOOD SPECIMENOrdering Facility: [facility] Address: [address] [place] [address] Performed By: #### L [id number] ####[facility] LABCLIA [id number] [place] [address] [place] Wheat IgE RAST class (S) Class 0 Normal Class 0 [facility] Comment on above: Order Comment: Speci men Type: BLOOD SPECIMENOrdering Facility: [facility] Address: [address] [place] [address] Performed By: #### L [id number] ####[facility] LABCLIA [id number] [place] [address] [place] ALLERGEN FOOD PANEL RL2on Banana IgE Qn (S) <0.35 Normal <0.35 [facility] Comment on above: Order Comment: Speci men Type: BLOOD SPECIMEN [facility] Address: [address] [place] [address] Performed By: #### 1 7859-0, 1988-05 #### [facility] CLIA [id number] [address] [place] [address] [place] Banana IgE RAST class (S) Class 0 Normal Class 0 [facility] Comment on above: Order Comment: Speci men Type: BLOOD SPECIMEN [facility] Address: [address] [place] [address] Performed By: #### 1 7859-0, 1988-05 #### [facility] CLIA [id number] [address] [place] [address] [place] Beef IgE Qn (S) <0.35 Normal <0.35 [facility] Comment on above: Order Comment: Speci men Type: BLOOD SPECIMEN [facility] Address: [address] [place] [address] Performed By: #### 1 7859-0, 1988-05 #### [facility] CLIA [id number] [address] [place] [address] [place] Beef IgE RAST class (S) Class 0 Normal Class 0 [facility] Comment on above: Order Comment: Speci men Type: BLOOD SPECIMEN [facility] Address: [address] [place] [address] Performed By: #### 1 7859-0, 1988-05 #### [facility] CLIA [id number] [address] [place] [address] [place] Cheese cheddar type IgE Qn (S) <0.35 Normal <0.35 [facility] Comment on above: Order Comment: Speci men Type: BLOOD SPECIMEN [facility] Address: [address] [place] [address] Performed By: #### 1 7859-0, 1988-05 #### [facility] CLIA [id number] [address] [place] [address] [place] Cheese cheddar type IgE RAST class (S) Class 0 Normal Class 0 [facility] Comment on above: Order Comment: Speci men Type: BLOOD SPECIMEN [facility] Address: [address] [place] [address] Performed By: #### 1 7859-0, 1988-05 #### [facility] CLIA [id number] [address] [place] [address] [place] Chicken meat IgE Qn (S) <0.35 Normal <0.35 [facility] Comment on above: Order Comment: Speci men Type: BLOOD SPECIMEN [facility] Address: [address] [place] [address] Performed By: #### 1 [id number], 1988-05 #### [facility] CLIA [id number] [address] [place] [address] [place] Chicken meat IgE RAST class (S) Class 0 Normal Class 0 [facility] Comment on above: Order Comment: Speci men Type: BLOOD SPECIMEN [facility] Address: [address] [place] [address] Performed By: #### 1 7859-0, 1988-05 #### [facility] CLIA [id number] [address] [place] [address] [place] YEAST CLASS Class 0 Normal Class 0 [facility] Comment on above: Order Comment: Speci men Type: BLOOD SPECIMEN [facility] Address: [address] [place] [address] Performed By: #### 1 7859-0, 1988-05 #### [facility] CLIA [id number] [address] [place] [address] [place] YEAST IGE <0.35 Normal <0.35 [facility] Comment on above: Order Comment: Speci men Type: BLOOD SPECIMEN [facility] Address: [address] [place] [address] Performed By: #### 1 7859-0, 1988-05 #### [facility] CLIA [id number] [address] [place] [address] [place] Apo B SerPl-mCncon Apolipoprotein B [Mass/Vol] 60 mg/dL Normal <90 [facility] Comment on above: Order Comment: Speci men Type: BLOOD SPECIMENOrdering Facility: [facility] Address: [address] [place] [address] Result Comment: Mode rate Risk: 90-119 mg/dL High Risk: >119 mg/dL Performed By: #### 2 458-8, 1884-6, 78348-4 ####[facility] LABCLIA [id number] [place] [address] [place] CBC W Auto Differential pane l (Bld)on 01-27-2024 Basophils (Bld) [#/Vol] 0.04 10*3/uL Normal <0.11 [facility] Comment on above: Order Comment: Speci men Type: BLOOD SPECIMENOrdering Facility: [facility] Address: [address] [place] [address] Performed By: #### 5 7021-8 ####[facility] LABCLIA [id number] [place] [address] [place] Basophils/100 WBC (Bld) 0.6 % Normal [facility] Comment on above: Order Comment: Speci men Type: BLOOD SPECIMENOrdering Facility: [facility] Address: [address] [place] [address] Performed By: #### 5 7021-8 ####[facility] LABCLIA [id number] [place] [address] [place] Differential cell count method Nom (Bld) Auto Normal [facility] Comment on above: Order Comment: Speci men Type: BLOOD SPECIMENOrdering Facility: [facility] Address: [address] [place] [address] Performed By: #### 5 7021-8 ####[facility] LABCLIA [id number] [place] [address] [place] Eosinophils (Bld) [#/Vol] 0.10 10*3/uL Normal <0.46 [facility] Comment on above: Order Comment: Speci men Type: BLOOD SPECIMENOrdering Facility: [facility] Address: [address] [place] [address] Performed By: #### 5 7021-8 ####[facility] LABCLIA [id number] [place] [address] [place] Eosinophils/100 WBC (Bld) 1.4 % Normal [facility] Comment on above: Order Comment: Speci men Type: BLOOD SPECIMENOrdering Facility: [facility] Address: [address] [place] [address] Performed By: #### 5 7021-8 ####[facility] LABCLIA [id number] [place] [address] [place] Erythrocyte distribution width (RBC) [Ratio] 11.8 % Normal 11.5-15.0 [facility] Comment on above: Order Comment: Speci men Type: BLOOD SPECIMENOrdering Facility: [facility] Address: [address] [place] [address] Performed By: #### 5 7021-8 ####[facility] LABCLIA [id number] [place] [address] [place] Hematocrit (Bld) [Volume fraction] 45.1 % Normal 39.0-51.0 [facility] Comment on above: Order Comment: Speci men Type: BLOOD SPECIMENOrdering Facility: [facility] Address: [address] [place] [address] Performed By: #### 5 7021-8 ####[facility] LABIA [id number] [place] [address] [place] Hemoglobin (Bld) [Mass/Vol] 15.6 g/dL Normal 13.0-17.0 [facility] Comment on above: Order Comment: Speci men Type: BLOOD SPECIMENOrdering Facility: [facility] Address: [address] [place] [address] Performed By: #### 5 7021-8 ####[facility] LABIA [id number] [place] [address] [place] Immature granulocytes (Bld) [#/Vol] 0.03 10*3/uL Normal <0.10 [facility] Comment on above: Order Comment: Speci men Type: BLOOD SPECIMENOrdering Facility: [facility] Address: [address] [place] [address] Performed By: #### 5 7021-8 ####[facility] LABIA [id number] [place] [address] [place] Immature granulocytes/100 WBC (Bld) 0.4 % Normal [facility] Comment on above: Order Comment: Speci men Type: BLOOD SPECIMENOrdering Facility: [facility] Address: [address] [place] [address] Performed By: #### 5 7021-8 ####[facility] LABCLIA [id number] [place] [address] [place] Lymphocytes (Bld) [#/Vol] 2.09 10*3/uL Normal 1.00-4.00 [facility] Comment on above: Order Comment: Speci men Type: BLOOD SPECIMENOrdering Facility: [facility] Address: [address] [place] [address] Performed By: #### 5 7021-8 ####[facility] LABIA [id number] [place] [address] [place] Lymphocytes/100 WBC (Bld) 30.3 % Normal [facility] Comment on above: Order Comment: Speci men Type: BLOOD SPECIMENOrdering Facility: [facility] Address: [address] [place] [address] Performed By: #### 5 7021-8 ####[facility] LABIA [id number] [place] [address] [place] MCH (RBC) [Entitic mass] 31.6 pg Normal 26.0-34.0 [facility] Comment on above: Order Comment: Speci men Type: BLOOD SPECIMENOrdering Facility: [facility] Address: [address] [place] [address] Performed By: #### 5 7021-8 ####[facility] LABIA [id number] [place] [address] [place] MCHC (RBC) [Mass/Vol] 34.6 g/dL Normal 30.5-36.0 [facility] Comment on above: Order Comment: Speci men Type: BLOOD SPECIMENOrdering Facility: [facility] Address: [address] [place] [address] Performed By: #### 5 7021-8 ####[facility] LABIA [id number] [place] [address] [place] MCV (RBC) [Entitic vol] 91.5 fL Normal 80.0-100.0 [facility] Comment on above: Order Comment: Speci men Type: BLOOD SPECIMENOrdering Facility: [facility] Address: [address] [place] [address] Performed By: #### 5 7021-8 ####[facility] LABCLIA [id number] [place] [address] [place] Monocytes (Bld) [#/Vol] 0.59 10*3/uL Normal <0.87 [facility] Comment on above: Order Comment: Speci men Type: BLOOD SPECIMENOrdering Facility: [facility] Address: [address] [place] [address] Performed By: #### 5 7021-8 ####[facility] LABCLIA [id number] [place] [address] [place] Monocytes/100 WBC (Bld) 8.6 % Normal [facility] Comment on above: Order Comment: Speci men Type: BLOOD SPECIMENOrdering Facility: [facility] Address: [address] [place] [address] Performed By: #### 5 7021-8 ####[facility] LABCLIA [id number] [place] [address] [place] Neutrophils (Bld) [#/Vol] 4.05 10*3/uL Normal 1.45-7.50 [facility] Comment on above: Order Comment: Speci men Type: BLOOD SPECIMENOrdering Facility: [facility] Address: [address] [place] [address] Performed By: #### 5 7021-8 ####[facility] LABCLIA [id number] [place] [address] [place] Neutrophils/100 WBC (Bld) 58.7 % Normal [facility] Comment on above: Order Comment: Speci men Type: BLOOD SPECIMENOrdering Facility: [facility] Address: [address] [place] [address] Performed By: #### 5 7021-8 ####[facility] LABCLIA [id number] [place] [address] [place] Nucleated RBC (Bld) [#/Vol] 10*3/uL Normal <0.01 [facility] Comment on above: Order Comment: Speci men Type: BLOOD SPECIMENOrdering Facility: [facility] Address: [address] [place] [address] Performed By: #### 5 7021-8 ####[facility] LABCLIA [id number] [place] [address] [place] Nucleated RBC/100 WBC (Bld) [Ratio] 0.0 /100 WBC Normal [facility] Comment on above: Order Comment: Speci men Type: BLOOD SPECIMENOrdering Facility: [facility] Address: [address] [place] [address] Performed By: #### 5 7021-8 ####[facility] LABCLIA [id number] [place] [address] [place] Platelet mean volume (Bld) [Entitic vol] 10.7 fL Normal 9.0-12.7 [facility] Comment on above: Order Comment: Speci men Type: BLOOD SPECIMENOrdering Facility: [facility] Address: [address] [place] [address] Performed By: #### 5 7021-8 ####[facility] LABIA [id number] [place] [address] [place] Platelets (Bld) [#/Vol] 264 10*3/uL Normal 150-400 [facility] Comment on above: Order Comment: Speci men Type: BLOOD SPECIMENOrdering Facility: [facility] Address: [address] [place] [address] Performed By: #### 5 7021-8 ####[facility] LABIA [id number] [place] [address] [place] RBC (Bld) [#/Vol] 4.93 10*6/uL Normal 4.20-6.00 [facility] Comment on above: Order Comment: Speci men Type: BLOOD SPECIMENOrdering Facility: [facility] Address: [address] [place] [address] Performed By: #### 5 7021-8 ####[facility] LABCLIA [id number] [place] [address] [place] WBC (Bld) [#/Vol] 6.90 10*3/uL Normal 3.70-11.00 [facility] Comment on above: Order Comment: Speci men Type: BLOOD SPECIMENOrdering Facility: [facility] Address: [address] [place] [address] Performed By: #### 5 7021-8 ####[facility] LABCLIA [id number] [place] [address] [place] CELIAC ASSOC HLA-DQ GENOTYPE on 01-27-2024 CELIAC CATEGORY Category 3 Normal [facility] Comment on above: Order Comment: Speci men Type: BLOOD SPECIMEN [facility] Address: [address] [place] [address] Result Comment: CATEGORY DQ HAPLOTYPE RELATIVE RISK Category 7 DQ2.2 AND DQ2.5 Extremely High Category 7 DQ2.5 AND DQ2.5 Extremely High Category 6 DQ2.2 AND DQA1*05, DQB1*03:01 Very High Category 5 DQ2.2 AND DQ8 Very High Category 5 DQ2.5 AND DQ8 Very High Category 4 DQ8 AND DQ8 High Category 3 DQ2.5 AND DQA1*05, DQB1*03:01 High Category 3 DQ2.5 AND DQA1*02:01, DQB1*03:03 High Category 3 DQ2.5 AND DQA1*03, DQB1*02 High Category 3 DQ2.5 AND OTHER LOW RISK ALLELE High Category 3 DQ2.2 AND DQA1*05, DQB1*03:03 High Category 2 DQ8 AND OTHER LOW RISK ALLELE Moderate Category 1 DQ2.2 AND OTHER LOW RISK ALLELE Low Category 0 NEGATIVE FOR DQ2.2 Negative Category 0 NEGATIVE FOR DQ2.5 Negative Category 0 NEGATIVE FOR DQ8 Negative DQ2.2 = DQA1*02:01, DQB1*02:02 DQ2.5 = DQA1*05, DQB1*02:01 DQ8 = DQA1*03, DQB1*03:02 The identification of one of these HLA-DQ genotypes is not, by itself, sufficient for the diagnosis of celiac disease, since both DQ2 and DQ8 are relatively common in the general population. The strongest reported HLA associations with celiac disease include DQ2 (DQ2.5 or DQA1*05-DQB1*02:01 & DQA2.2 or DQA1*02:01-DQB1*02:02) and DQ8 (DQA1*03:01/DQB1*03:02). This test is useful for family members of celiac patients and patients with negative serology results. This testing can rule out celiac disease with high negative predictive value (NPV) of 95-100% depending on the ethnic background. In cases of an ambiguous HLA allele assignment where multiple rare alleles cannot be excluded, the most common HLA allele is reported. References: 1. Sabino Pineda, Ravi J, Mary Torres, et al. Cost-effective HLA typing with tagging SNPs predicts celiac disease risk haplotypes in the [place], Taiwanese and Thai populations. Immunogenetics. 2009 Jun;61(4):247-56. 2. Anish BRADSHAW. Celiac disease: dissecting a complex inflammatory disorder. Melissa Rev Immunol. 2002 Nov;2(9):647-55. 3. Boggs E, Gilmar HS, Ilana CA, et al. Risk of pediatric celiac disease according to HLA haplotype and country. N Engl J Med. 2014 ;371(1):42-9. HLA typing performed by PCR-RSSOP and/or NGS. This test was developed and its performance characteristics determined by [employer]. The test has not been cleared or approved by the [place] FDA. However, FDA approval was not necessary since this lab is certified under CLIA for high complexity testing. Test performed by: [facility], [address] [place] [address]., [facility] [place] [address]. CLIA [id number]. Performed By: #### 1 7859-0, 1988-05 #### [facility] CLIA [id number] [address] [place], [place] [id number] [address] [place] CELIAC RISK HAPLOTYPE Positive Normal [facility] Comment on above: Order Comment: Speci men Type: BLOOD SPECIMEN [facility] Address: [address] [place] [address] Performed By: #### 1 7859-0, 1988-05 #### [facility] CLIA [id number] [address] [place] [address] [place] HLA-DQA1 GENOTYPE HLA-DQA1*: 05, 01 Normal [facility] Comment on above: Order Comment: Speci men Type: BLOOD SPECIMEN [facility] Address: [address] [place] [address] Performed By: #### 1 7859-0, 1988-05 #### [facility] CLIA [id number] [address] [place] [address] [place] HLA-DQB1 GENOTYPE HLA-DQB1*: 02:01, 05 Normal [facility] Comment on above: Order Comment: Speci men Type: BLOOD SPECIMEN [facility] Address: [address] [place] [address] Performed By: #### 1 78590, 1988-05 #### [facility] CLIA [id number] [address] [place] [address] [place] CELIAC SCREENon 01-27-2024 GLIAD DEAMIDATED IGA QUAL Negative Normal Negative, Test not Indicated [facility] Comment on above: Order Comment: Speci men Type: BLOOD SPECIMEN [facility] Address: [address] [place] [address] Result Comment: This is used as an aid in diagnosis of celiac disease. Clinical correlation is required. The following results were obtained with an [employer] QUANTA Lite Gliadin IgA ENDY Gliadin. Gliadin IgA values obtained with different manufacturers' assay methods may not be used interchangeably. The magnitude of the reported IgA levels cannot be correlated to an endpoint titer. Performed By: #### 1 7859-0, 1988-05 #### [facility] CLIA [id number] [address] [place] [address] [place] Gliadin peptide IgA Qn (S) 4 Units Normal <20 [facility] Comment on above: Order Comment: Yahaira dodson Type: BLOOD SPECIMEN [facility] Address: [address] [place] [address] Performed By: #### 1 7859-0, 1988-05 #### [facility] CLIA [id number] [address] [place] [address] [place] INTERPRETATION No serological evide nce of celiac disease, however, if celiac disease is clinically suspected and patient is not on gluten-free diet, histological diagnosis may be considered. HLA testing may help with risk assessment. Normal [facility] Comment on above: Order Comment: Yahaira dodson Type: BLOOD SPECIMEN [facility] Address: [address] [place] [address] Performed By: #### 1 7859, 1988-05 #### [facility] CLIA [id number] [address] [place] [address] [place] TRANSGLUTAMINASE IGA ABS INTERPRETATION Negative Normal Negative [facility] Comment on above: Order Comment: Yahaira dodson Type: BLOOD SPECIMEN [facility] Address: [address] [place] [address] Result Comment: The following results were obtained with [employer] QUANTA Lite R h-tTG IgA ENDY.???R h-tTG IgA values obtained with different manufacturers' assay methods may not be used interchangeably. The magnitude of the reported IgA levels cannot be corelated to an endpoint???concentration. This is used as an aid in diagnosis of celiac disease. Clinical correlation is required. Performed By: #### 1 7859, 1988-05 #### [facility] CLIA [id number] [address] [place] [address] [place] tTG IgA Qn (S) <2 Normal <4 [facility] Comment on above: Order Comment: Yahaira dodson Type: BLOOD SPECIMEN [facility] Address: [address] [place] [address] Performed By: #### 1 7859-0, 1988-05 #### [facility] CLIA [id number] [address] [address] [facility] CNOVon 01-27-2024 CNOV Office Visit (STEPHANIEMN ) DEMETRI SANTILLAN ([id number]) 1975 M EXC Date Time Provider Department 01/27/24 4:30 PM [employer] During your visit today, we recorded the following information about you: Demetri Kovacs Parts Facilitator 03/08/2024 10:26 AM Signed [facility] Summary The information included in this report is a comprehensive overview of the components of fitness necessary to maintain a higher quality of life. Upon completion of the fitness evaluation, this information has been customized to each individual in order for the evaluated individual to understand and utilize the major components of fitness, as well as the proper guidelines for exercising in a safe and effective manner. Each program is compiled as specified to individual needs and health goals. Patient Name: Demetri Santillan Date: January 27, 2024 [facility] Number: [id number] [facility] [employer] Hours Worked/ wk.: 40 Travel (%): 10 Health Related Goals: Continue weight loss. Fitness History: Currently running, cycling, walking, and taking fitness classes 3-4 days per week. Also plays tennis 3 times per week. Health Limitations: 1. Recommend a healthy diet, including a calcium intake of ~ 1000 mg/ day from food with supplementation as needed to achieve this goal and 1/2 of your body weight in ounces of non alcoholic,non caffeinated liquid/day. 2. Continue > 150 minutes a week of exercise. 3. Screening PSA ordered. 4. Ultrasound screening for AAA is normal. 5. Recommend Booster for COVID-19 and Influenza vaccine. 6. Recurrent cold sores; continue as needed Valtrex 2 grams, repeat once in 12 hours. 7. Vitamin D deficiency; well corrected. 8. Family history of colon cancer. 9. Change in bowel habits; suggest STOPPING MAGNESIUM, start Fiber Con and GI consult. 10. Abnormal ECG during exercise stress test in a very low risk individual with normal coronary arteries, as defined by Coronary Calcium Score of 0 . Cardiac risk assessment includes biochemical measures of lipids and inflammation, as well as testing of the electrical system with EKGs and looking at the coronary arteries with CT calcium scoring and assessment of cardiac function with stress testing. We can combine these test results to calculate the risk for a cardiac event in the coming decade using the BAGLEY Risk Calculator. We use this to guide the use of medication to mitigate risk. Your BAGLEY Risk Score is 1.23 %. Ordered STRESS ECHO TREADMILL Orthopedic Limitations/ Chronic Pain: None Current Activity: Type of exercise: Frequency (week) Duration (min) Mode: Intensity: Notes: Cardio: 4 60 Running Light to Moderate Cycling, Walking Resistance: 2 30 Free weights and calisthenics Light to Moderate Fitness Classes Flexibility: 1 60 Dynamic Stretching Light to Moderate Pilates Fitness Testing: See attached results for comparison of standards for age and gender. [facility] Pricing Consultant Strength: Right hand: 45 kilograms Left hand: 42 kilograms *Ranking: Below Average * Based on standardized ACSM guidelines for age and gender. Sit and Reach Score: 10 inches *Ranking: Very Poor * Based on standardized ACSM guidelines for age and gender. General Flexibility: Body Part Right Left Body Part Right Left Hamstrings: 3 3 Quadriceps: 2 2 Gastroc/ Soleus: 2 2 Shoulder IR: 3 2 Hip Internal Rot. 1 1 Shoulder ER: 2 3 Hip External Rot. 1 1 Neck Flex/Ext: 2 2 Straight Leg Raise 3 3 Neck Rot.: 2 2 Lower Back: 2 2 Neck Sidebend: 2 2 1= Excellent 2=Normal 3=Below Average Balance: Normal Squat Test: Normal Exercise Recommendations: Type of exercise: Frequency (week) Duration (min) Mode: Intensity: Notes: Cardiovascular: Frequency should be a minimum 5-7 times per week of moderate intensity or 3-4 of vigorous intensity. 30-60 minutes Recommended examples include, but are not limited to: Running, biking, hiking, elliptical, swimming, dancing, aerobics, spinning Please see RPE scale. Maintain a minimum of 150 minutes of cumulative cardiovascular exercise each week to meet [place] Heart Association Guidelines. Anything beyond ten minutes of continuous cardiovascular exercise counts towards the 150 minute goal. 11-14 on RPE scale. For weight loss, it is most effective to build up to a minimum of 5 sessions per week. Two sessions should include interval training of alternating higher and lower intensity for 2-4 minute bursts for 20-30 minutes, and the other days should be moderate intensity exercise at a constant pace for 45-60 minutes. When just starting cardiovascular exercise, it is most effective to begin with light to moderate intensity cardio, and gradually increase the time and intensity. To improve cardiovascular performance, it is most effective to include interval training of alternating higher and lower intensi (more content not included)... Normal [facility] CN Office Visit (EXEPMN ) DEMETRI SANTILLAN ([id number]) 1975 M EXC Date Time Provider Department 01/27/24 11:30 AM PATRICK IBRAHIM EXEPMN During your visit today, we recorded the following information about you: Temperature Pulse Blood pressure Weight 97.9 degrees 77/minute 121/77 85.7 kg Height 1.803 m Patrick Ibrahim MD 03/06/2024 11:39 AM Signed PRESENT COMPLAINTS: Mr. Demetri Santillan is a 48 year old man who presents for comprehensive medical examination and assessment. PRESENT MEDICATIONS: PROBIOTIC WITH PREBIOTIC: 2 daily. Cholecalciferol, Vitamin D3, 25 mcg (1,000 unit) capsule: 1 daily. Bradley 6-XHX-pyl-fish oil (FISH OIL) 100-160-1,000 mg capsule: 1 daily. Valerian Root 500 mg capsule: 1 at bedtime. CALMME FORTE tablet: 1 at bedtime. Magnesium Complex carbonate, citrate,and oxide 300 mg tablet: 1 daily. Vitamin B-12/Cyanocobalamin 1,000 mcg tablet: 1 daily. Valacyclovir (VALTREX) 1 gram tablet:2 immediately and repeat once in 12 hours for cold sore. Biotin 5 mg tablet: 1 daily. HOLD for 72 hours before labs. FIBERCON 625 mg tablet: 1 daily with 8 oz water, can titrate to 6 daily ( NEW) Lutein 40 mg capsule: 1 daily. MEDICATION ALLERGIES: No Known Drug Allergies PAST MEDICAL HISTORY: Family History of Colon Cancer mother and paternal aunt. Multiple Nevi (2 x 2 mm on right upper back x 2, 7 x 2 mm on right lower back/flank. Vitamin D Insufficiency. Multiple Lipomas. PAST SURGICAL AND PROCEDURAL HISTORY: ACL repair of Right knee 2006 Appendectomy; ruptured, emergent, sepsis 1999 Repair of ulnar fracture 2010. Colonoscopy (MAC) 1 hyperplastic polyp 08/02/15, General Anesthesia,repeat in 5 years 08/07/20. FAMILY MEDICAL HISTORY: Mother: Smoker, Alcoholism with liver disease, Colorectal cancer dx 56, at 57. Father: Car accident, at 48. Sister: Melania 1974 No Known Medical Problems. Brother: Mike 1986 MVA with multiple injuries. Maternal Grandmother: Hypertension, at 96. Maternal Grandfather: Heart, Stroke, at 62. Paternal Grandmother: Hypertension, . Paternal Grandfather: Diabetes, Hypertension, Stroke, . Daughter: Jackelyn 2005 Well treated Anxiety disorder. Daughter: Johannei 2008 ADD/ADHD. Daughter: Sole 2010 hx of heavier weight;normalized. Paternal Aunt: Colon Cancer, in her 60's. 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 Marital Status: to Vero with 3 daughters. Tobacco Use: Never. Alcohol Use: Approximately 3 Glasses of Wine / week. Caffeine: 1 large cup of coffee per day. Sleep: 7-7.5 hours per night, which is marginally adequate. Wears Bike Helmet and Seat Belt Diet Has gained weight and has increased snacking,looking to improve. Exercise: Tennis/pickle ball/ running/cycling for 60 minutes 4 X/ week, weight lifting 45 3 X/ week, yoga/stretching 30 minutes 4 X/ week. 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 Mild stress level at work reported. REVIEW OF SYSTEMS: GENERAL: No fever, chills, or night sweats. Weight up 5-10 lbs. Energy level is decent. DERMATOLOGIC: No new skin conditions, rashes or changing moles. Sees a felt strip finisher annually. EYES: No recent visual changes. Last eye exam within the past year. ENT: No hearing loss or tinnitus. Dental exams every 6 months. No significant allergies or recurrent sinus infections. RESPIRATORY: No cough, dyspnea, or wheezing. CARDIOVASCULAR: No chest pain with exertion or at rest, palpitations, exertional pre-syncope, or edema. GASTROINTESTINAL: No persistent heartburn, abdominal cramping, pains or rectal bleeding. Change in bowel habits; stool is not very solid and is irregular. GENITOURINARY: No problems with urinary stream, dysuria, frequency, urgency, incontinence, or erectile dysfunction.Nocturia x 1. MUSCULOSKELETAL: No joint pains, swelling,loss of range of motion, incapacitating or persistent back pain.Has myalgia. NEURO: No headaches, vertigo, balance problems,memory problems, weakness, numbness or tingling. PSYCHIATRIC: Problems falling asleep and staying asleep. No marital discord or anxiety. In the past 2 weeks have you: Cass down, depressed, or hopeless? NO Lost interest in your usual activities? NO HEMATOLOGIC/LYMPHATIC/IMMUN OLOGIC: No history of anemia,unusual bruising, or abnormal bleeding. ENDOCRINE: No cold intolerance, constipation, unexplained hair loss, unexplained weight gain, excessive thirst or excessive urination. PHYSICAL EXAM: Vital Signs: Blood pressure 121/77 mmHg, Pulse 77 Beats per minute Temperature 36.6 ?C (97.9 ?F), temperature source Temporal Artery, Height 180.3 cm (5' 11), Weight 85.7 kg (188 lb 15 oz). Body mass index is 26.35 kg/m?. GENERAL: Well developed, (more content not included)... Normal [facility] CNOV Office Visit (CDIE) DEMETRI SANTILLAN ([id number]) 1975 M EXC Date Time Provider Department 01/27/24 8:45 AM RUWE, ANH CDIE During your visit today, we recorded the following information about you: Anh Castro AUD 01/27/2024 8:05 AM Signed EXECUTIVE PHYSICAL: HEARING SUMMARY Referred by: Patrick Ibrahim MD This patient was seen for puretone air conduction threshold test as part of a physical examination in [facility]. A brief case history and puretone air conduction thresholds were obtained. COMMUNICATION FUNCTION SCREENIN. Have you previously been diagnosed with a hearing loss or currently utilize amplification? No 2. Does a hearing problem cause you to feel frustrated when talking to members of your family? No 3. Does a hearing problem cause you difficulty hearing/understanding co-workers, clients, or customers? No 4. Do you feel that any difficulty with your hearing limits or hampers your personal or social life? No HEARING SENSITIVITY RESULTS: Refer to the hearing test in the procedures tab for air conduction thresholds. NOTE: Testing involved assessment of air conduction thresholds only. The results should not be considered a comprehensive diagnostic audiologic evaluation. RIGHT EAR: Hearing sensitivity is within normal limits and adequate for communication function. LEFT EAR: Hearing sensitivity is within normal limits and adequate for communication function. COMPARISON: Comparison of today's results with previous air-conduction testing (07/06/2020): Today's results reveal no significant change in both ears INTERPRETATION AND RECOMMENDATIONS: * Air-Conduction thresholds were obtained within normal limits in both ears. Retest as medically indicated or sooner if a change in hearing is noted. * Use hearing protective devices when exposed to loud noise to promote hearing loss prevention. I verify that I have reviewed the pure-tone air-conduction threshold testing and this report. Jodee Nicole, [facility] Clinical Mica Builder DEFINITIONS: Severity Descriptors Severity Range of intensity in decibels (dB) Normal 0-25 dB Mild 25-45 dB Moderate 45-60 dB Severe 60-90 dB Profound 90+ dB Referring Provider: PATRICK IBRAHIM [[id number]] Allergies As of Date: 01/27/2024 (No Known Allergies) Date Reviewed: 12/24/2023 Reviewed by: Delia Pierre LPN - Fully Assessed Reason for Visit: Physical [83] Visit Diagnosis:Normal hearing test [Z01.10] Order(s):HEARING TEST/AUDIOGRAM [[id number]] Order #: [id number]: 1 Prescriptions as of 01/27/2024 - Cholecalciferol, Vitamin D3, 25 mcg (1,000 unit) cap Take 1 capsule by mouth once daily. - omega 4-lin-tfe-fish oil (FISH OIL) 100-160-1,000 mg cap Take 1 capsule by mouth once daily. - Valerian Root 500 mg cap Take 1 capsule by mouth daily at bedtime. - Herbal Drugs (CALMME) tab Take 1 tablet by mouth daily at bedtime. CALM FORTE - magnesium carb,citrate,oxide (MAGNESIUM COMPLEX) 300 mg magnesium tab Take 1 tablet by mouth once daily. - melatonin 1 mg tablet Take 1-2 tablets by mouth daily at bedtime. - cyanocobalamin (VITAMIN B-12) 1,000 mcg tab Take 1,000 mcg by mouth once daily. Problem List As Of Date 01/27/2024 Noted Resolved Family history of colon cancer requiring screen*07/19/2015 Multiple benign nevi [D22.9] 10/25/2015 Family history of colon cancer [Z80.0] Shoulder joint dislocation [S43.006A] 05/21/2016 Well adult exam [Z00.00] 03/03/2017 Vitamin D deficiency [E55.9] 03/03/2017 Right groin pain [R10.31] 03/04/2018 Multiple nevi [D22.9] 03/04/2018 Lipoma of left thigh [D17.24] 03/29/2019 Foot pain, left [M79.672] 03/29/2019 Palpitations [R00.2] 03/29/2019 Normal coronary arteries, Coronary Calcium Scor*07/06/2020 Encounter Status:Closed by ANH CASTRO on 01/27/24 Normal [facility] CRP SerPl HS-mCncon 01-27-20 CRP High sensitivity method [Mass/Vol] 1.6 mg/L Normal <3.1 [facility] Comment on above: Order Comment: Speci men Type: BLOOD SPECIMEN Ordering Facility: [facility] Address: [address] [place] [address] Result Comment: hsCR P < 1.0 mg/L, relative risk is low hsCRP 1.0-3.0 mg/L, relative risk is average hsCRP > 3.0 mg/L, relative risk is high Reference: Javier TA, Solis GA, Lacho RW, et al. Markers of Inflammation and Cardiovascular Disease. Application to Clinical and Public Health Practice. A Statement for Healthcare Professionals from the Centers for Disease Control and Prevention and the [place] Heart Association. Circulation 2003;107:499-511. Performed By: #### 1 7859-0, 1988-05 #### [facility] CLIA [id number] [address] [place] [address] [place] Cholesterol in LDL Direct as say [Mass/Vol]on 01-27-2024 Cholesterol in LDL [Mass/Vol] 77 mg/dL Normal <100 [facility] Comment on above: Order Comment: Yahaira dodson Type: BLOOD SPECIMEN Ordering Facility: [facility] Address: [address] [place] [address] Result Comment: <100 mg/dL, Optimal 100-129 mg/dL, Near optimal/above optimal 130-159 mg/dL, Borderline high 160-189 mg/dL, High >189 mg/dL, Very high Secondary prevention optimal LDL Cholesterol levels are recommended to be < 70 mg/dL Performed By: #### 1 7859-0, 1988-05 #### [facility] CLIA [id number] [address] [place] [address] [place] Comp Metab 2000 Pnl SerPlon 01-27-2024 Albumin [Mass/Vol] 4.7 g/dL Normal 3.9-4.9 [facility] Comment on above: Order Comment: Yahaira dodson Type: BLOOD SPECIMEN Ordering Facility: [facility] Address: [address] [place] [address] Performed By: #### 1 7859-0, 1988-05 #### [facility] CLIA [id number] [address] [place] [address] [place] Comprehensive metabolic 2000 panelon 01-27-2024 ALP [Catalytic activity/Vol] 80 U/L Normal 38-113 [facility] Comment on above: Order Comment: Yahaira dodson Type: BLOOD SPECIMEN Ordering Facility: [facility] Address: [address] [place] [address] Performed By: #### 1 7859-0, 1988-05 #### [facility] CLIA [id number] [address] [place] [address] [place] ALT [Catalytic activity/Vol] 22 U/L Normal 10-54 [facility] Comment on above: Order Comment: Speci men Type: BLOOD SPECIMEN Ordering Facility: [facility] Address: [address] [place] [address] Performed By: #### 1 7859-0, 1988-05 #### [facility] CLIA [id number] [address] [place] [address] [place] Anion gap [Moles/Vol] 13 mmol/L Normal 8-15 [facility] Comment on above: Order Comment: Speci men Type: BLOOD SPECIMEN Ordering Facility: [facility] Address: [address] [place] [address] Performed By: #### 1 7859-0, 1988-05 #### [facility] CLIA [id number] [address] [place] [address] [place] AST [Catalytic activity/Vol] 25 U/L Normal 14-40 [facility] Comment on above: Order Comment: Speci men Type: BLOOD SPECIMEN Ordering Facility: [facility] Address: [address] [place] [address] Performed By: #### 1 7859-0, 1988-05 #### [facility] CLIA [id number] [address] [place] [address] [place] Bilirubin [Mass/Vol] 0.7 mg/dL Normal 0.2-1.3 [facility] Comment on above: Order Comment: Speci men Type: BLOOD SPECIMEN Ordering Facility: [facility] Address: [address] [place] [address] Performed By: #### 1 7859-0, 1988-05 #### [facility] CLIA [id number] [address] [place] [address] [place] Calcium [Mass/Vol] 9.7 mg/dL Normal 8.5-10.2 [facility] Comment on above: Order Comment: Speci men Type: BLOOD SPECIMEN Ordering Facility: [facility] Address: [address] [place] [address] Performed By: #### 1 7859-0, 1988-05 #### [facility] CLIA [id number] [address] [place] [address] [place] Chloride [Moles/Vol] 101 mmol/L Normal 98-107 [facility] Comment on above: Order Comment: Speci men Type: BLOOD SPECIMEN Ordering Facility: [facility] Address: [address] [place] [address] Performed By: #### 1 7859-0, 1988-05 #### [facility] CLIA [id number] [address] [place] [address] [place] CO2 [Moles/Vol] 26 mmol/L Normal 22-30 [facility] Comment on above: Order Comment: Speci men Type: BLOOD SPECIMEN Ordering Facility: [facility] Address: [address] [place] [address] Performed By: #### 1 7859-0, 1988-05 #### [facility] CLIA [id number] [address] [place] [address] [place] Creatinine [Mass/Vol] 1.03 mg/dL Normal 0.73-1.22 [facility] Comment on above: Order Comment: Speci men Type: BLOOD SPECIMEN Ordering Facility: [facility] Address: [address] [place] [address] Performed By: #### 1 7859-0, 1988-05 #### [facility] CLIA [id number] [address] [place] [address] [place] Creatinine and Glomerular filtration rate.predicted panel (S/P/Bld) 90 mL/min/1.73m??? Normal >=60 [facility] Comment on above: Order Comment: Yahaira dodson Type: BLOOD SPECIMEN Ordering Facility: [facility] Address: [address] [place] [address] Result Comment: Marianna mated Glomerular Filtration Rate (eGFR) is calculated using the 2020 CKD-EPI creatinine equation. This equation utilizes serum creatinine, sex, and age as parameters. The creatinine assay has traceable calibration to isotope dilution-mass spectrometry. Refer to KDIGO guidelines for clinical interpretation. In patients with unstable renal function, e.g. those with acute kidney injury, the eGFR may not accurately reflect actual GFR. Performed By: #### 1 7859-0, 1988-05 #### [facility] CLIA [id number] [address] [place] [address] [place] Glucose [Mass/Vol] 101 mg/dL High 74-99 [facility] Comment on above: Order Comment: Yahaira dodson Type: BLOOD SPECIMEN Ordering Facility: [facility] Address: [address] [place] [address] Result Comment: The [place] Diabetes Association (ADA) provides guidance for cutoff values for fasting glucose and random glucose. The ADA defines fasting as no caloric intake for at least 8 hours. Fasting plasma glucose results between 100 to 125 mg/dL indicate increased risk for diabetes (prediabetes). Fasting plasma glucose results greater than or equal to 126 mg/dL meet the criteria for diagnosis of diabetes. In the absence of unequivocal hyperglycemia, results should be confirmed by repeat testing. In a patient with classic symptoms of hyperglycemia or hyperglycemic crisis, random plasma glucose results greater than or equal to 200 mg/dL meet the criteria for diagnosis of diabetes. Reference: Standards of Medical Care in Diabetes 2016, [place] Diabetes Association. Diabetes Care. 2016.39(Suppl 1). Performed By: #### 1 7859-0, 1988-05 #### [facility] CLIA [id number] [address] [place] [address] [place] Potassium [Moles/Vol] 4.5 mmol/L Normal 3.7-5.1 [facility] Comment on above: Order Comment: Yahaira dodson Type: BLOOD SPECIMEN Ordering Facility: [facility] Address: [address] [place] [address] Performed By: #### 1 7859-0, 1988-05 #### [facility] CLIA [id number] [address] [place] [address] [place] Protein [Mass/Vol] 7.2 g/dL Normal 6.3-8.0 [facility] Comment on above: Order Comment: Speci men Type: BLOOD SPECIMEN Ordering Facility: [facility] Address: [address] [place] [address] Performed By: #### 1 7859-0, 1988-05 #### [facility] CLIA [id number] [address] [place] [address] [place] Sodium [Moles/Vol] 140 mmol/L Normal 136-144 [facility] Comment on above: Order Comment: Speci men Type: BLOOD SPECIMEN Ordering Facility: [facility] Address: [address] [place] [address] Performed By: #### 1 7859-0, 1988-05 #### [facility] CLIA [id number] [address] [place] [address] [place] Urea nitrogen [Mass/Vol] 11 mg/dL Normal 9-24 [facility] Comment on above: Order Comment: Speci men Type: BLOOD SPECIMEN Ordering Facility: [facility] Address: [address] [place] [address] Performed By: #### 1 7859-0, 1988-05 #### [facility] CLIA [id number] [address] [place], [place] [id number] [place] ECG EXECUTIVE HEALTHon 01-26 ECG EXECUTIVE [facility] Ventricular Rate : 72 BPM Atrial Rate : 72 BPM P-R Interval : 172 ms QRS Duration : 92 ms Q-T Interval : 398 ms QTC Calculation(Bazett) : 435 ms Calculated P [place] : 63 degrees Calculated R [place] : 54 degrees Calculated T [place] : 24 degrees NORMAL SINUS RHYTHM NORMAL ECG Confirmed by SANTOSH ELLIS MD ([id number]) on 03/03/2024 4:56:11 PM NAME : DEMETRI SANTILLAN PID : [id number] : 1975 Gender : Male Race : ORD : [id number] Procedure Date : Jan 27 2024 12:30:27 Edit Date : Mar 03 2024 16:56:12 Diagnosis: NORMAL SINUS RHYTHM NORMAL ECG Confirmed by SANTOSH ELLIS MD ([id number]) on 03/03/2024 4:56:11 PM Test Reason : EHB Location : 50 : A11 A11 Overread By : SANTOSH ELLIS MD Edited By : SANTOSH ELLIS MD Referred By : PATRICK IBRAHIM Acquired by : CHELLY GUTIERREZ [facility] EX ALB/CREAT RND URon 2023 Albumin DL <= 20 mg/L (U) [Mass/Vol] mg/dL Normal [facility] Comment on above: Order Comment: Speci men Type: BLOOD SPECIMEN Ordering Facility: [facility] Address: [address] [place] [address] Performed By: #### 1 7859-0, 1988-05 #### [facility] CLIA [id number] [address] [place] [address] [place] Albumin/Creatinine (U) [Mass ratio] <12 Normal <30 [facility] Comment on above: Order Comment: Speci men Type: BLOOD SPECIMEN Ordering Facility: [facility] Address: [address] [place] [address] Result Comment: Adul t Male and Female Nephrotic Criteria: <30 mg/g is considered normal to mildly increased 30-300 mg/g is considered moderately increased >300 mg/g is considered severely increased KDIGO. (2013). KDIGO 2012 Clinical Practice Guideline for the Evaluation and Management of Chronic Kidney Disease. Official Journal of the International Society of Nephrology, 3(1), 1-150. Performed By: #### 1 7859-0, 1988-05 #### [facility] CLIA [id number] [address] [place] [address] [place] Creatinine (U) [Mass/Vol] 96.2 mg/dL Normal 20.0-300.0 [facility] Comment on above: Order Comment: Speci men Type: BLOOD SPECIMEN Ordering Facility: [facility] Address: [address] [place] [address] Performed By: #### 1 7859-0, 1988-05 #### [facility] CLIA [id number] [address] [place] [address] [place] EX UA CHEMSTRIPon 01-27-2024 Bilirubin Ql (U) Negative Normal Negative [facility] Comment on above: Order Comment: Speci men Type: URINE SPECIMENOrdering Facility: [facility] Address: [address] [place] [address] Performed By: #### U AEX ####[facility] [id number] [place] [address] [place] Clarity (Unsp spec) Clear Normal Clear [facility] Comment on above: Order Comment: Speci men Type: URINE SPECIMENOrdering Facility: [facility] Address: [address] [place] [address] Performed By: #### U AEX ####[facility] [facility] LABCLIA [id number] [place] [address] [place] Color (U) Yellow Normal Yellow [facility] Comment on above: Order Comment: Speci men Type: URINE SPECIMENOrdering Facility: [facility] Address: [address] [place] [address] Performed By: #### U AEX ####[facility] LABCLIA [id number] [place] [address] [place] Glucose Test strip (U) [Mass/Vol] Negative Normal Negative [facility] Comment on above: Order Comment: Speci men Type: URINE SPECIMENOrdering Facility: [facility] Address: [address] [place] [address] Performed By: #### U AEX ####[facility] LABCLIA [id number] [place] [address] [place] Hemoglobin Ql (U) Negative Normal Negative [facility] Comment on above: Order Comment: Speci men Type: URINE SPECIMENOrdering Facility: [facility] Address: [address] [place] [address] Performed By: #### U AEX ####[facility] LABCLIA [id number] [place] [address] [place] Ketones Ql (U) Negative Normal Negative [facility] Comment on above: Order Comment: Speci men Type: URINE SPECIMENOrdering Facility: [facility] Address: [address] [place] [address] Performed By: #### U AEX ####[facility] LABCLIA [id number] [place] [address] [place] Leukocyte esterase Test strip Ql (U) Negative Normal Negative [facility] Comment on above: Order Comment: Speci men Type: URINE SPECIMENOrdering Facility: [facility] Address: [address] [place] [address] Performed By: #### U AEX ####[facility] LABCLIA [id number] [place] [address] [place] Nitrite Ql (U) Negative Normal Negative [facility] Comment on above: Order Comment: Speci men Type: URINE SPECIMENOrdering Facility: [facility] Address: [address] [place] [address] Performed By: #### U AEX ####[facility] LABCLIA [id number] [place] [address] [place] pH (U) 7.0 [pH] Normal <8.5 [facility] Comment on above: Order Comment: Speci men Type: URINE SPECIMENOrdering Facility: [facility] Address: [address] [place] [address] Performed By: #### U AEX ####[facility] LABCLIA [id number] [place] [address] [place] Protein (U) [Mass/Vol] Negative Normal Negative [facility] Comment on above: Order Comment: Speci men Type: URINE SPECIMENOrdering Facility: [facility] Address: [address] [place] [address] Performed By: #### U AEX ####[facility] [id number] [place] [address] [place] Specific gravity (U) [Rel density] 1.010 Normal 1.005-1.030 [facility] Comment on above: Order Comment: Speci men Type: URINE SPECIMENOrdering Facility: [facility] Address: [address] [place] [address] Performed By: #### U AEX ####[facility] [id number] [place] [address] [place] Urobilinogen Ql (U) 0.2 EU/dL Normal 0.2-1.0 EU/dL [facility] Comment on above: Order Comment: Speci men Type: URINE SPECIMENOrdering Facility: [facility] Address: [address] [place] [address] Performed By: #### U AEX ####[facility] [id number] [place] [address] [place] EXERCISE STRESS ECG (WITHOUT IMAGING)on 01-27-2024 EXERCISE STRESS ECG (WITHOUT IMAGING) Stress ECG Report: Exercise Stress ECG (without Imaging) [facility] LUIS MANUEL-2 Date of service: 01/27/2024 2:58:56 PM [employer] Ordering physician: PATRICK IBRAHIM clinical studies specialist: Jasson Villa Electric Motor Tester Assembler: Janelle Faye Interpreting physician: James Bell MD Patient name: MR. DEMETRI SANTILLAN Age: 48 years Gender: M Height: 180.34 cm BSA: 2.07 m Weight: 85.73 kg BMI: 26.4 kg/m Indication: Encounter for screening for cardiovascular disorders Stress ECG Conclusion: Conclusion: Abnormal due to ST depression and abnormal Burnett treadmill score Comments: Abnormal ST depression in inferolateral and V4 1.0mm LAT and V4 and 2.0mm INF downsloping ST depression with stress Resolved in recovery Patient asymptomatic Stress ECG Summary: The patient's resting heart rate was 73 bpm and blood pressure was 138/82 mmHg. The patient exercised according to the [place] protocol. The estimated end-exercise MET level achieved using the FRIEND equation was 11.0, which is within the 50th to 75th percentile for age and sex. The estimated end-exercise MET level achieved using the previous ACSM equation was 12.6. The test was terminated due to general fatigue and the total exercise time was 12 minutes and 37 seconds. No symptoms provoked during stress. The maximum heart rate was 187 bpm, which is 109% of the predicted heart rate for age. This is an adequate heart rate response. Peak blood pressure was 172/78 mmHg. The double product achieved was [address]. Resting ECG: Normal Sinus Rhythm Exercise Protocol: [place] Stress Exercise Table: +-----+ +-------- + +---+---+---+--- -+---+----+ Stage Speed (MPH) Grade(%) Time (min) HR SYS GULSHAN RPE SOB METS +-----+ +-------- + +---+---+---+--- -+---+----+ 1 1.7 10.0 3.0 102 140 78 7.0 1.0 4.2 +-----+ +-------- + +---+---+---+--- -+---+----+ 2 2.5 12.0 6.0 125 148 78 11.0 2.0 6.1 +-----+ +-------- + +---+---+---+--- -+---+----+ 3 3.4 14.0 9.0 157 172 78 14.0 4.0 8.3 +-----+ +-------- + +---+---+---+--- -+---+----+ 4 4.2 16.0 12.0 181 17.0 5.0 10.5 +-----+ +-------- + +---+---+---+--- -+---+----+ +-----+ +-------- -+ +---+---+---+-- --+---+----+ Speed (MPH) Grade (%) Time (min) HR SYS GULSHAN RPE SOB METS +-----+ +-------- -+ +---+---+---+-- --+---+----+ Final 5.0 18.0 12.62 187 172 78 19.0 7.0 11.0 +-----+ +-------- -+ +---+---+---+-- --+---+----+ +------+ --+ Stage ST: Lead, Lavaca, MM +------+ --+ 4 +---+ +---+ LAT Downsloping 1.0 +---+ +---+ INF Downsloping 1.5 +---+ +---+ V4 Downsloping 0.5 +---+ +---+ +------+ --+ +-----+ -+ ST: Lead, Lavaca, MM +-----+ -+ Final +---+ +--- + LAT Downsloping 1.0 +---+ +---+ INF Downsloping 2.0 +---+ +---+ V4 Downsloping 1.0 +---+ +---+ +-----+ -+ Recovery Table: +------+ +------- -+ +---+---+---+-- --+ Stage Speed (MPH) Grade(%) Time (min) HR SYS GULSHAN METS +------+ +------- -+ +---+---+---+-- --+ 1 1.5 2.5 1.0 160 192 74 2.7 +------+ +------- -+ +---+---+---+-- --+ 2 1.5 2.5 2.0 133 188 80 2.7 +------+ +------- -+ +---+---+---+-- --+ 3 3.0 114 152 80 +------+ +------- -+ +---+---+---+-- --+ 4 5.0 96 148 80 +------+ +------- -+ +---+---+---+-- --+ +-----+ + Stage ST: Lead, Lavaca, MM +-----+ + 1 +----+++ RSVN +----+++ +-----+ + 2 +----+++ RSVD +----+++ +-----+ + Stress Observations: Resting HR: 73 bpm Peak HR: 187 bpm (109% MPHR) Resting BP: 138 / 82 mmHg Peak BP: 172 / 78 mmHg Total exercise time: 12 minutes 37 seconds METS achieved: 11.0 Chronotropic response index (CRI): 1.15 Heart rate recovery (HRR): 27 bpm Rate Pressure Product (RPP): 09161 Stress Exercise Observations: Reason for test termination: general fatigue, Symptoms during test: No symptoms provoked during stress, Heart rate response: Adequate heart rate response, Normal CRI (>0.8 Not on B Ang) and Normal HRR (>12 or >[address]/EC), Blood pressure response: Normal BP response, ST segment and T wave changes: Very abnormal ST depression (>= 2.0 mm) during stress, Burnett Treadmill Score: Abnormal Burnett Treadmill Score (<5 but >= -10) and Arrhythmias: No arrhythmias Metabolic Exercise Data Variable: Observed value (more content not included)... Normal [facility] Ferritin SerPl-mCncon 2023 Ferritin [Mass/Vol] 135.0 ng/mL Normal 30.3-565.7 [facility] Comment on above: Order Comment: Yahaira dodson Type: BLOOD SPECIMEN [facility] Address: [address] [place] [address] Performed By: #### 1 7859-0, 1988-05 #### [facility] CLIA [id number] [address] [place] [address] [place] GGT SerPl-cCncon 01-27-2024 Gamma glutamyl transferase [Catalytic activity/Vol] 43 U/L Normal 10-70 [facility] Comment on above: Order Comment: Yahaira dodson Type: BLOOD SPECIMEN [facility] Address: [address] [place] [address] Performed By: #### 1 7859-0, 1988-05 #### [facility] CLIA [id number] [address] [place] [address] [place] H. pylori IgG IA Qlon 2023 H. PYLORI IGG, QUAL Positive Abnormal Negative [facility] Comment on above: Order Comment: Yahaira dodson Type: BLOOD SPECIMEN [facility] Address: [address] [place] [address] Result Comment: The result suggests recent or past infection with H. pylori. Clinical correlation is required. Where clinically warranted, follow up testing is suggested including Urea Breath Test or H. pylori stool antigen test. Performed By: #### 1 7859-0, 1988-05 #### [facility] CLIA [id number] [address] [place] [address] [place] [facility]Bld[facility]on 01-27-2024 Average glucose Estimated from glycated hemoglobin (Bld) [Mass/Vol] 94 mg/dL Normal [facility] Comment on above: Order Comment: Speci men Type: BLOOD SPECIMENOrdering Facility: [facility] Address: [address] [place] [address] Result Comment: eAG: (Estimated average glucose) is a calculated value from HgbA1c and is technical sales representative of the average blood glucose level in the last 2-3 month period. Performed By: #### 5 5454-3 ####[facility] LABCLIA [id number] [address] STATES OF [facility] HbA1c (Bld) [Mass fraction] 4.9 % Normal 4.3-5.6 [facility] Comment on above: Order Comment: Speci men Type: BLOOD SPECIMENOrdering Facility: [facility] Address: [address] [place] [address] Result Comment: Amer [place] Diabetes Association guidelines indicate that patients with HgbA1c in the range 5.7-6.4% are at increased risk for development of diabetes, and intervention by lifestyle modification may be beneficial. HgbA1c greater or equal to 6.5% is considered diagnostic of diabetes. Performed By: #### 5 5454-3 ####[facility] LABCLIA [id number] [place] [address] [place] IgA SerPl-mCncon 01-27-2024 IgA [Mass/Vol] 237 mg/dL Normal 70-400 [facility] Comment on above: Order Comment: Speci men Type: BLOOD SPECIMENOrdering Facility: [facility] Address: [address] [place] [address] Performed By: #### 2 458-8, 1884-6, 75655-9 ####[facility] LABCLIA [id number] [place] [address] [place] Iron and Iron binding capaci ty panelon 01-27-2024 Iron [Mass/Vol] 97 ug/dL Normal 41-186 [facility] Comment on above: Order Comment: Speci men Type: BLOOD SPECIMEN [facility] Address: [address] [place] [address] Performed By: #### 1 7859-0, 1988-05 #### [facility] CLIA [id number] [address] [place] [address] [place] Iron binding capacity [Mass/Vol] 300 ug/dL Normal 232-386 [facility] Comment on above: Order Comment: Speci men Type: BLOOD SPECIMEN [facility] Address: [address] [place] [address] Performed By: #### 1 7859-0, 1988-05 #### [facility] CLIA [id number] [address] [place] [address] [place] Iron/TIBC [Molar ratio] 32.3 % Normal 15.0-57.0 [facility] Comment on above: Order Comment: Speci men Type: BLOOD SPECIMEN [facility] Address: [address] [place] [address] Performed By: #### 1 7859-0, 1988-05 #### [facility] CLIA [id number] [address] [place] [address] [place] LPa SerPl-mCncon 01-27-2024 Lipoprotein a [Mass/Vol] mg/dL Normal <30 [facility] Comment on above: Order Comment: Speci men Type: BLOOD SPECIMENOrdering Facility: [facility] Address: [address] [place] [address] Performed By: #### 2 458-8, 1884-6, 87944-3 ####[facility] LABCLIA [id number] [place] [address] [place] Lipid 1996 panelon 4 Cholesterol [Mass/Vol] 149 mg/dL Normal <200 [facility] Comment on above: Order Comment: Speci men Type: BLOOD SPECIMENOrdering Facility: [facility] Address: [address] [place] [address] Result Comment: <200 mg/dL, Desirable 200-239 mg/dL, Borderline high >239 mg/dL, High Performed By: #### 3 016-3, 3084-1, 302-7, 12141-7 ####[facility] LABCLIA [id number] [address] [place] Cholesterol in HDL [Mass/Vol] 59 mg/dL Normal >39 [facility] Comment on above: Order Comment: Speci men Type: BLOOD SPECIMENOrdering Facility: [facility] Address: [address] [place] [address] Result Comment: 40-5 9 mg/dL, Acceptable >59 mg/dL, High: Negative risk factor for coronary heart disease <40 mg/dL, Low: Positive risk factor for coronary heart disease Performed By: #### 3 016-3, 3084-1, 302-7, 36112-2 ####[facility] LABCLIA [id number] [address] [place] Cholesterol in LDL [Mass/Vol] 67 mg/dL Normal <100 [facility] Comment on above: Order Comment: Speci men Type: BLOOD SPECIMENOrdering Facility: [facility] Address: [address] [place] [address] Result Comment: <100 mg/dL, Optimal 100-129 mg/dL, Near optimal/above optimal 130-159 mg/dL, Borderline high 160-189 mg/dL, High >189 mg/dL, Very high Secondary prevention optimal LDL Cholesterol levels are recommended to be < 70 mg/dL Performed By: #### 3 016-3, 3084-1, 3024-7, 06296-4 ####[facility] LABCLIA [id number] [address] [place] Cholesterol in LDL/Cholesterol in HDL [Mass ratio] 1.14 {ratio} Normal <2.54 [facility] Comment on above: Order Comment: Yahaira dodson Type: BLOOD SPECIMENOrdering Facility: [facility] Address: [address] [place] [address] Result Comment: Refe rence: 1. National Cholesterol Education Program ATP III Guideline At-A-Glance Quick Desk Reference: National Heart, Lung, and Blood [place]. National Institutes of Health. 2001: NIH Publication No. 01-3305. 2. An International Atherosclerosis Society position paper: global recommendations for the management of dyslipidemia: executive summary, Atherosclerosis. 2014: 232(2):410-413. Performed By: #### 3 016-3, 3084-1, 3023-7, 52155-9 ####[facility] LABCLIA [id number] [place] [address] [place] Cholesterol in VLDL [Mass/Vol] 23 mg/dL Normal <30 [facility] Comment on above: Order Comment: Yahaira dodson Type: BLOOD SPECIMENOrdering Facility: [facility] Address: [address] [place] [address] Performed By: #### 3 016-3, 3084-1, 302-7, 62148-9 ####[facility] LABCLIA [id number] [place] [address] [place] Cholesterol non HDL [Mass/Vol] 90 mg/dL Normal <130 [facility] Comment on above: Order Comment: Ramonei men Type: BLOOD SPECIMENOrdering Facility: [facility] Address: [address] [place] [address] Result Comment: <130 mg/dL, Optimal 130-159 mg/dL, Near optimal/above optimal 160-189 mg/dL, Borderline high 190-219 mg/dL, High >219 mg/dL, Very high Secondary prevention optimal non HDL Cholesterol levels are recommended to be <100 mg/dL Performed By: #### 3 016-3, 3084-1, 3024-7, 66662-1 ####[facility] LABCLIA [id number] [address] [address] [place] Cholesterol.total/C holesterol in HDL [Mass ratio] 2.53 {ratio} Normal <5.10 [facility] Comment on above: Order Comment: Speci men Type: BLOOD SPECIMENOrdering Facility: [facility] Address: [address] [place] [address] Performed By: #### 3 016-3, 3084-1, 7, ####[facility] LABIA [id number] [place] [address] [place] FASTING TIME 12 hrs Normal [facility] Comment on above: Order Comment: Speci men Type: BLOOD SPECIMENOrdering Facility: [facility] Address: [address] [place] [address] Performed By: #### 3 016-3, 3084-1, 7, ####[facility] LABIA [id number] [address] [address] [place] Triglyceride [Mass/Vol] 117 mg/dL Normal <150 [facility] Comment on above: Order Comment: Speci men Type: BLOOD SPECIMENOrdering Facility: [facility] Address: [address] [place] [address] Result Comment: <150 mg/dL, Normal 150-199 mg/dL, Borderline high 200-499 mg/dL, High >499 mg/dL, Very high Performed By: #### 3 016-3, 3084-1, 3027, 43047-8 ####[facility] LABIA [id number] [place] [id number] [place] OMEGACHECKon 01-27-2024 ARACHIDONIC ACID 11.4 % by wt Normal 8.6-15.6 [facility] Comment on above: Order Comment: Speci men Type: BLOOD SPECIMEN [facility] Address: [address] [place] [address] Performed By: #### 1 7859-0, 1988-05 #### [facility] CLIA [id number] [address] [place] [address] [place] ARACHIDONIC ACID/EPA RATIO 16.7 Normal 3.7-40.7 [facility] Comment on above: Order Comment: Speci men Type: BLOOD SPECIMEN [facility] Address: [address] [place] [address] Result Comment: Rece ived Date: Performed By: #### 1 7859-0, 1988-05 #### [facility] CLIA [id number] [address] [place] [address] [place] DHA 2.7 % by wt Normal 1.4-5.1 [facility] Comment on above: Order Comment: Speci men Type: BLOOD SPECIMEN [facility] Address: [address] [place] [address] Performed By: #### 1 7859-0, 1988-05 #### [facility] CLIA [id number] [address] [place] [address] [place] DPA 1.5 % by wt Normal 0.8-1.8 [facility] Comment on above: Order Comment: Speci men Type: BLOOD SPECIMEN [facility] Address: [address] [place] [address] Performed By: #### 1 7859-0, 1988-05 #### [facility] CLIA [id number] [address] [place] [address] [place] EPA 0.7 % by wt Normal 0.2-2.3 [facility] Comment on above: Order Comment: Speci men Type: BLOOD SPECIMEN [facility] Address: [address] [place] [address] Performed By: #### 1 7859-0, 1988-05 #### [facility] CLIA [id number] [address] [place] [address] [place] LINOLEIC ACID 23.2 % by wt Normal 18.6-29.5 [facility] Comment on above: Order Comment: Speci men Type: BLOOD SPECIMEN [facility] Address: [address] [place] [address] Performed By: #### 1 7859-0, 1988-05 #### [facility] CLIA [id number] [address] [place] [address] [place] OMEGA-3 TOTAL 4.8 % by wt Normal [facility] Comment on above: Order Comment: Speci men Type: BLOOD SPECIMEN [facility] Address: [address] [place] [address] Performed By: #### 1 7859-0, 1988-05 #### [facility] CLIA [id number] [address] [place] [address] [place] OMEGA-6 TOTAL 38.6 % by wt Normal [facility] Comment on above: Order Comment: Speci men Type: BLOOD SPECIMEN [facility] Address: [address] [place] [address] Result Comment: [facility] measures a number of omega-6 fatty acids with AA and LA being the two most abundant forms reported. Performed By: #### 1 7859-0, 1988-05 #### [facility] CLIA [id number] [address] [place] [address] [place] OMEGA-6/OMEGA-3 RATIO 8.0 Normal 3.7-14.4 [facility] Comment on above: Order Comment: Speci men Type: BLOOD SPECIMEN [facility] Address: [address] [place] [address] Performed By: #### 1 7859-0, 1988-05 #### [facility] CLIA [id number] [address] [place], [place] [address] [place] OMEGACHECK 4.8 % by wt Low >5.4 [facility] Comment on above: Order Comment: Specnafisa men Type: BLOOD SPECIMEN [facility] Address: [address] [place] [address] Result Comment: Incr easing blood levels of long-chain n-3 fatty acids are associated with a lower risk of sudden cardiac (1). Based on the top (75th percentile) and bottom (25th percentile) quartiles of the CHL reference population, the following relative risk categories were established for OmegaCheck: A cut-off of >=5.5% by wt defines a population at optimal relative risk, 3.8-5.4% by wt defines a population at moderate relative risk, and <=3.7% by wt defines a population at high relative risk of sudden cardiac . The totality of the scientific evidence demonstrates that when consumption of fish oils is limited to 3 g/day or less of EPA and DHA, there is no significant risk for increased bleeding time beyond the normal range. A daily dosage of 1 gram of EPA and DHA lowers the circulating triglycerides by about 7-10% within 2 to 3 weeks. (Reference: 1-Timothy et al. [facility]. 2002; 346: 1410-7738).This test was developed and its analytical performance characteristics have been determined by [facility] at [facility]. It has not been cleared or approved by the U.S. Food and Drug Administration. This assay has been validated pursuant to the CLIA regulations and is used for clinical purposes. Performed By: #### 1 7859-0, 1988-05 #### [facility] CLIA [id number] [address] [place] [address] [place] [address] [place] T4 Free SerPl-mCncon 024 Free T4 [Mass/Vol] 1.3 ng/dL Normal 0.9-1.7 [facility] Comment on above: Order Comment: Yahaira dodson Type: BLOOD SPECIMENOrdering Facility: [facility] Address: [address] [place] [address] Performed By: #### 3 016-3, 3084-1, 3024-7, 65955-3 ####[facility] LABCLIA [id number] [place] [address] [place] TESTOSTERONE BIOAVAILABLEon 01-27-2024 Sex hormone binding globulin [Moles/Vol] 48 nmol/L Normal 14-82 [facility] Comment on above: Order Comment: Speci men Type: BLOOD SPECIMEN [facility] Address: [address] [place] [address] Performed By: #### 1 7859-0, 1988-05 #### [facility] CLIA [id number] [address] [place] [address] [place] Testosterone [Mass/Vol] 366 ng/dL Normal 193-824 [facility] Comment on above: Order Comment: Speci men Type: BLOOD SPECIMEN [facility] Address: [address] [place] [address] Result Comment: A te stosterone level in the 193-320 ng/dL range with associated clinical symptoms is considered low and may indicate hypogonadism (from [facility] 2010 [id number]). Results >320 ng/dL are considered normal. Performed By: #### 1 7859-0, 1988-05 #### [facility] CLIA [id number] [address] [place] [address] [place] TSTBIO 153.7 ng/dL Normal 105.0-324.0 [facility] Comment on above: Order Comment: Speci men Type: BLOOD SPECIMEN Ordering Facility: [facility] Address: [address] [place] [address] Performed By: #### 1 7859-0, 1988-05 #### [facility] CLIA [id number] [address] [place] [address] [place] TSTFRC 52.3 pg/mL Normal 38.0-120.0 [facility] Comment on above: Order Comment: Speci men Type: BLOOD SPECIMEN Ordering Facility: [facility] Address: [address] [place] [address] Performed By: #### 1 7859-0, 1988-05 #### [facility] CLIA [id number] [address] [place] [address] [place] TSTFRP 1.4 % Normal 1.1-2.6 [facility] Comment on above: Order Comment: Speci men Type: BLOOD SPECIMEN Ordering Facility: [facility] Address: [address] [place] [address] Performed By: #### 1 7859-0, 1988-05 #### [facility] CLIA [id number] [address] [place] [address] [place] TSH SerPl-aCncon 01-27-2024 TSH Qn 3.840 m[IU]/L Normal 0.270-4.200 [facility] Comment on above: Order Comment: Speci men Type: BLOOD SPECIMENOrdering Facility: [facility] Address: [address] [place] [address] Performed By: #### 3 016-3, 3084-1, 3024-7, 13850-9 ####[facility] [id number] [place] [address] [place] Urate SerPl-mCncon Urate [Mass/Vol] 5.9 mg/dL Normal 4.0-8.1 [facility] Comment on above: Order Comment: Speci men Type: BLOOD SPECIMENOrdering Facility: [facility] Address: [address] [place] [address] Performed By: #### 3 016-3, 3084-1, 3024-7, 69059-0 ####[facility] [id number] [place] [address] [place] VASCULAR SCREENING TESTon VASCULAR SCREENING TEST Non-Invasive Vascular Laboratory [facility] A17 Vascular Screening Bilateral/Complete Date of service/time: 01/27/2024 8:27:12 AM Name: MR. DEMETRI SANTILLAN Date of : 1975 Age: 48 years Gender: M Clinical Indication Screening for peripheral vascular disease. Cardiovascular Risk Factors History of hyperlipidemia: No History of hypertension: No History of diabetes mellitus: No History of cigarettes smoking (> 100 cigarettes in the lifetime): No Known coronary artery disease: No Post menopausal woman: n/a Family history of premature coronary artery disease: No FINDINGS -------- CAROTID Family history of stroke: No Patient has had a stroke or TIA: No Patient is known to have stenosis of one of the carotid arteries: No Patient is known to have a blockage of one of the carotid arteries: No Right common carotid artery distal: PSV: 76 cm/s. EDV: 25 cm/s. No plaque seen. Right internal carotid artery origin: PSV: 115 cm/s. EDV: 35 cm/s. No plaque seen. Right internal carotid artery proximal: PSV: 80 cm/s. EDV: 39 cm/s. No plaque seen. Right external carotid artery origin: PSV: 112 cm/s. EDV: 27 cm/s. No plaque seen. Left common carotid artery distal: PSV: 95 cm/s. EDV: 31 cm/s. No plaque seen. Left internal carotid artery origin: PSV: 88 cm/s. EDV: 36 cm/s. No plaque seen. Left internal carotid artery proximal: PSV: 87 cm/s. EDV: 37 cm/s. No plaque seen. Left external carotid artery origin: PSV: 87 cm/s. EDV: 21 cm/s. No plaque seen. AORTA Family history of abdominal aortic aneurysm: No Patient is known to have an abdominal aortic aneurysm: No History of cigarettes smoking (> 100 cigarettes in the lifetime): No Aorta proximal: 2.17 cm x 2.18 cm Aorta at renals: PSV: 104 cm/s. EDV: 0 cm/s. ANKLE BRACHIAL INDEX (VERNELL) Known peripheral artery disease: No Open wounds on the legs: No Pain in calves, thighs, or buttocks when walking that resolves with rest: No Right Pressures Brachial: 118 mmHg Ankle dorsalis pedis: 132 mmHg VERNELL: 1.12 Ankle posterior tibial: 138 mmHg VERNELL: 1.17 Left Pressures Brachial: 118 mmHg Ankle dorsalis pedis: 134 mmHg VERNELL: 1.14 Ankle posterior tibial: 138 mmHg VERNELL: 1.17 IMPRESSION Follow up with your physician regarding the results of the study is advised. CAROTID Right carotid: No atherosclerotic plaque visualized. Vessels are normal. Left carotid: No atherosclerotic plaque visualized. Vessels are normal. AORTA No evidence of abdominal aortic aneurysm. ANKLE BRACHIAL INDEX (VERNELL) Right ankle brachial index: 1.17 Normal ankle brachial index at rest in the right leg. Left ankle brachial index: 1.17 Normal ankle brachial index at rest in the left leg. Technologist: Kamilla Gerardo RVT Ordering physician: PATRICK IBRAHIM Interpreting physician: Stanford Alfred MD, RPVI Final CC [email or web address] Medical Image : [id number] [employer] See Link below for Image Normal [facility] Vit B12 [facility] Cobalamin (Vitamin B12) [Mass/Vol] 721 pg/mL Normal 232-1245 [facility] Comment on above: Order Comment: Speci men Type: BLOOD SPECIMEN Ordering Facility: [facility] Address: [address] [place] [address] Performed By: #### 1 7859-0, 1988-05 #### [facility] CLIA [id number] [address] [place] [address] [place] XR [facility]ST [facility] 09-11-2022 [facility] FUNDUS PHOTOS OU (BOTH EYES) [facility] Vital Signs Date Time Vital Sign Value Performing Clinician Adore conway 04-06-2024 10:03-0500 Body height 180.3 cm Dat Miles MD Work Phone: [facility] 04-06-2024 10:03-0500 Body mass index (BMI) [Ratio] 24.91 kg/m2 Dat Miles MD Work Phone: [facility] 04-06-2024 10:03-0500 Body weight 81 kg Dat Miles MD Work Phone: [facility] 04-06-2024 10:03-0500 Diastolic blood pressure 66 mm[Hg] Dat Miles MD Work Phone: [facility] 04-06-2024 10:03-0500 Heart rate 55 /min Dat Miles MD Work Phone: [facility] 04-06-2024 10:03-0500 Systolic blood pressure 106 mm[Hg] Dat Miles MD Work Phone: [facility] 03-05-2024 08:31-0500 Body height 180.3 cm Teressa Pulido MD Work Phone: [facility] 03-05-2024 08:31-0500 Body mass index (BMI) [Ratio] 25.1 kg/m2 Teressa Pulido MD Work Phone: [facility] 03-05-2024 08:31-0500 Body temperature 98.4 [degF] Teressa Pulido MD Work Phone: [facility] 03-05-2024 08:31-0500 Body weight 81.65 kg Teressa Pulido MD Work Phone: [facility] 03-05-2024 08:31-0500 Diastolic blood pressure 69 mm[Hg] Teressa Pulido MD Work Phone: [facility] 03-05-2024 08:31-0500 Heart rate 57 /min Teressa Pulido MD Work Phone: [facility] 03-05-2024 08:31-0500 SaO2% (BldA) [Mass fraction] 100 % Teressa Pulido MD Work Phone: [facility] 03-05-2024 08:31-0500 Systolic blood pressure 117 mm[Hg] Teressa Pulido MD Work Phone: [facility] 02-18-2024 08:12-0500 Body mass index (BMI) [Ratio] 25.94 kg/m2 Ivan Lobo DO Work Phone: [facility] 02-18-2024 08:12-0500 Body temperature 97 [degF] Ivan Lobo DO Work Phone: [facility] 02-18-2024 08:12-0500 Body weight 84.37 kg Ivan Lobo DO Work Phone: [facility] 02-18-2024 08:12-0500 Diastolic blood pressure 60 mm[Hg] Ivan Lobo DO Work Phone: [facility] 02-18-2024 08:12-0500 Heart rate 64 /min Ivan Lobo DO Work Phone: [facility] 02-18-2024 08:12-0500 Respiratory rate 16 /min Ivan Lobo DO Work Phone: [facility] 02-18-2024 08:12-0500 Systolic blood pressure 100 mm[Hg] Ivan Lobo DO Work Phone: [facility] 01-27-2024 15:50-0500 Body height 180.3 cm Ivan Lobo DO Work Phone: [facility] 01-27-2024 15:50-0500 Body mass index (BMI) [Ratio] 25.93 kg/m2 Ivan Lobo DO Work Phone: [facility] 01-27-2024 15:50-0500 Body weight 84.32 kg Ivan Lobo DO Work Phone: [facility] 01-27-2024 11:25-0500 Body height 180.3 cm Patrick Ibrahim MD Work Phone: [facility] 01-27-2024 11:25-0500 Body mass index (BMI) [Ratio] 26.35 kg/m2 Patrick Ibrahim MD Work Phone: [facility] 01-27-2024 11:25-0500 Body temperature 97.9 [degF] Patrick Ibrahim MD Work Phone: [facility] 01-27-2024 11:25-0500 Body weight 85.7 kg Patrick Ibrahim MD Work Phone: [facility] 01-27-2024 11:25-0500 Diastolic blood pressure 77 mm[Hg] Patrick Ibrahim MD Work Phone: [facility] 01-27-2024 11:25-0500 Heart rate 77 /min Patrick Ibrahim MD Work Phone: [facility] 01-27-2024 11:25-0500 Systolic blood pressure 121 mm[Hg] Patrick Ibrahim MD Work Phone: [facility] 12-24-2023 09:27-0400 Body height 182 cm Ivan Lobo DO Work Phone: [facility] 12-24-2023 09:27-0400 Body mass index (BMI) [Ratio] 26.29 kg/m2 Ivan Lobo DO Work Phone: [facility] 12-24-2023 09:27-0400 Body temperature 97 [degF] Ivan Lobo DO Work Phone: [facility] 12-24-2023 09:27-0400 Body weight 87.09 kg Ivan Lobo DO Work Phone: [facility] 12-24-2023 09:27-0400 Diastolic blood pressure 60 mm[Hg] Ivan Lobo DO Work Phone: [facility] 12-24-2023 09:27-0400 Heart rate 56 /min Ivan Lobo DO Work Phone: [facility] 12-24-2023 09:27-0400 Respiratory rate 16 /min Ivan Lobo DO Work Phone: [facility] 12-24-2023 09:27-0400 Systolic blood pressure 100 mm[Hg] Ivan Lobo DO Work Phone: [facility] 09-11-2022 11:22-0400 Diastolic blood pressure 76 mm[Hg] Patrick Ibrahim MD Work Phone: [facility] 09-11-2022 11:22-0400 Heart rate 52 /min Patrick Ibrahim MD Work Phone: [facility] 09-11-2022 11:22-0400 Systolic blood pressure 123 mm[Hg] Patrick Ibrahim MD Work Phone: [facility] 09-11-2022 11:14-0400 Body height 181 cm Patrick Ibrahim MD Work Phone: [facility] 09-11-2022 11:14-0400 Body temperature 97.11 [degF] Patrick Ibrahim MD Work Phone: [facility] 09-11-2022 11:14-0400 Body weight 83.28 kg Patrick Ibrahim MD Work Phone: [facility] 07-24-2022 17:07-0400 Body height 182 cm Ivan Lobo DO Work Phone: [facility] 07-24-2022 17:07-0400 Body temperature 96.4 [degF] Ivan Lobo DO Work Phone: [facility] 07-24-2022 17:07-0400 Body weight 83.01 kg Ivan Lobo DO Work Phone: [facility] 07-24-2022 17:07-0400 Diastolic blood pressure 70 mm[Hg] Ivan Lobo DO Work Phone: [facility] 07-24-2022 17:07-0400 Heart rate 60 /min Ivan Lobo DO Work Phone: [facility] 07-24-2022 17:07-0400 Respiratory rate 12 /min Ivan Lobo DO Work Phone: [facility] 07-24-2022 17:07-0400 Systolic blood pressure 110 mm[Hg] Ivan Lobo DO Work Phone: [facility] Encounters Encounter Date Encounter Type Care Provider Facility Start: 01-10-2025 ambulatory Patrick Guzman Facility:[facility] Start: 12-28-2024 End: 12-28-2024 ambulatory IVAN L LOBO Facility:[facility] Start: 12-24-2024 End: 12-24-2024 ambulatory IVAN L LOBO Facility:[facility] Start: 05-27-2024 End: 05-27-2024 Orders Only Dat Miles MD Work Phone: Urology Comment on above: History of elevated PSA (Primary Dx) Start: 05-26-2024 End: 05-26-2024 ambulatory IVAN L LOBO Facility:[facility] Start: 04-06-2024 End: 04-09-2024 ambulatory Dat Miles MD Work Phone: Urology Start: 04-06-2024 End: 04-06-2024 Office outpatient new 45 minutes Dat Miles MD Work Phone: Urology Comment on above: Elevated prostate sp ecific antigen (PSA) (Primary Dx); Screening for genitourinary condition; Acute cystitis without hematuria Start: 04-05-2024 End: 04-05-2024 ambulatory IVAN L LOBO Facility:[facility] Start: 04-05-2024 End: 04-05-2024 ambulatory IVAN L LOBO Facility:[facility] Start: 04-05-2024 End: 04-05-2024 Subsequent hospital visit by physician [facility] Work Phone: Nuclear Medicine Comment on above: Abnormal electrocard iogram [R94.31] Start: 04-02-2024 End: 04-02-2024 Orders Only Patrick Ibrahim MD Work Phone: Internal Medicine Comment on above: Abnormal electrocard iogram (Primary Dx) Start: 03-30-2024 End: 03-30-2024 ambulatory Nurse [facility] Work Phone: Cardiology Comment on above: Your upcoming stress test Start: 03-30-2024 End: 03-30-2024 E-mail encounter from caregiver Nurse [facility] Work Phone: Cardiology Start: 03-30-2024 End: 03-30-2024 Telephone encounter Ivan Nelsonon DO Work Phone: [facility] [place] Comment on above: UTI Start: 03-27-2024 End: 03-30-2024 E-mail encounter from caregiver [facility] [place] Start: 03-27-2024 End: 03-30-2024 ambulatory [facility] Provider [facility] Comment on above: Urologist Start: 03-26-2024 End: 03-27-2024 Telephone encounter Ivan Nelsonon DO Work Phone: [address] [place] [address] Comment on above: Results Start: 03-24-2024 End: 03-24-2024 ambulatory IVAN WHEELERRISON Facility:[facility] Start: 03-05-2024 End: 03-05-2024 ambulatory IVAN L LOBO Facility:[facility] Start: 03-05-2024 End: 03-05-2024 Office outpatient new 45 minutes Teressa Pulido MD Work Phone: Gastroenterology Comment on above: Bloating (Primary Dx ) Start: 03-03-2024 End: 03-03-2024 Telephone encounter Ivan Nelsonon DO Work Phone: [facility] [place] Comment on above: Patient Question Start: 03-01-2024 End: 03-01-2024 ambulatory IVAN L LOBO Facility:[facility] Start: 03-01-2024 End: 03-01-2024 Telephone encounter Ivan Edwin WheelerLobo DO Work Phone: [facility] [place] Comment on above: Results Start: 02-18-2024 End: 02-18-2024 ambulatory IVAN L LOBO Facility:[facility] Start: 02-18-2024 End: 02-18-2024 Patient encounter procedure Ivan Edwin WheelerLobo DO Work Phone: [facility] Comment on above: Recurrent cold sores (Primary Dx); Helicobacter pylori ab+; Screening for prostate cancer; Borderline abnormal thyroid function test; Bloating; Vitamin D deficiency Start: 01-27-2024 End: 01-27-2024 Patient encounter procedure [employer] Facilit[employer] Work Phone (unformatted): [phone] Internal Medicine Comment on above: Wellness examination (Primary Dx) Start: 01-27-2024 End: 01-27-2024 Patient encounter status [employer] Facilitator Work Phone (unformatted): [phone] [facility] Start: 01-27-2024 End: 01-27-2024 Patient encounter procedure Patrick Ibrahim MD Work Phone: Internal Medicine Comment on above: Encounter for [facility] ss examination in adult (Primary Dx); Screening for depression; Encounter for screening examination for other mental health and behavioral disorders; Recurrent cold sores; Vitamin D deficiency; Family history of colon cancer; Change in bowel habits; Normal coronary arteries, Coronary Calcium Score = 0; Abnormal ECG during exercise stress test Start: 01-27-2024 End: 01-27-2024 Patient encounter status Patrick Ibrahim MD Work Phone: [facility] Work Phone: Start: 01-27-2024 Encounter for genera l adult medical examination without abnormal findings ANH PEOPLES [facility] Start: 01-27-2024 End: 01-27-2024 Hearing test normal Anh DUGAN Work Phone: [facility] Work Phone: Start: 01-27-2024 End: 01-27-2024 Patient encounter procedure Anh DUGAN Work Phone: Audiology Comment on above: Normal hearing test Nutrition Assessment ; Patient Education Start: 01-27-2024 Encounter for other specified special examinations IVAN LOBO [facility] Start: 01-27-2024 End: 01-27-2024 ambulatory Freel[employer] Work Phone: Internal Medicine Start: 12-24-2023 End: 12-24-2023 Telephone encounter Patrick Ibrahim MD Work Phone: Internal Medicine Comment on above: Nurse Triage Call ([place] [employer] 01/26) Start: 12-24-2023 End: 12-24-2023 Patient encounter procedure Ivan Lobo DO Work Phone: [facility] Comment on above: Well adult exam (Priscilla gustavo Dx); Altered bowel function; Bloating; Dyslipidemia; Pain of left calf Start: 12-24-2023 End: 12-24-2023 Patient encounter status Ivan Lobo DO Work Phone: [facility] Start: 12-12-2023 End: 01-26-2024 Orders Only Patrick Ibrahim MD Work Phone: Internal Medicine Comment on above: Routine general medi ivett examination at a health care facility (Primary Dx); Laboratory examination Start: 12-12-2023 End: 01-26-2024 Patient encounter status Patrick Ibrahim MD Work Phone: [facility] Work Phone: Start: 12-12-2023 End: 01-26-2024 Repair arterial blockage Patrick Ibrahim MD Work Phone: [facility] Start: 10-13-2023 Telephone encounter Patrick Ibrahim MD Work Phone: Internal Medicine Comment on above: Nurse Triage Call ([employer] / reschedule) Start: 10-01-2023 Telephone encounter Patrick Ibrahim MD Work Phone: Internal Medicine Comment on above: [facility] Start: 09-11-2022 End: 09-11-2022 Patient encounter procedure Patrick Ibrahim MD Work Phone: Internal Medicine Comment on above: Routine general medi ivett examination at a health care facility (Primary Dx); Myalgia Wellness examination (Primary Dx) Start: 09-11-2022 End: 09-11-2022 Patient encounter status [employer] Facilitator Work Phone (unformatted): [phone] [facility] Start: 09-11-2022 End: 09-11-2022 Patient encounter status Patrick Ibrahim MD Work Phone: Radiology Start: 09-11-2022 End: 09-11-2022 Subsequent hospital visit by physician Xr Chest Main A21 Radiology Comment on above: Routine general medi ivett examination at a health care facility [Z00.00] Start: 09-03-2022 ambulatory Ivan norman DO Work Phone: [facility] [place] Comment on above: Executive Physical Start: 09-03-2022 Telephone encounter Patrick Ibrahim MD Work Phone: Internal Medicine Comment on above: Nurse Triage Call ([place]) Patient Question Start: 08-28-2022 Telephone encounter Patrick Ibrahim MD Work Phone: Internal Medicine Comment on above: Nurse Triage Call ([place]) Start: 07-24-2022 End: 07-24-2022 Patient encounter procedure Ivan Pineda Lobo DO Work Phone: [facility] Comment on above: Well adult exam (Priscilla gustavo Dx); Vitamin D deficiency; Knee clicking; Pain of left heel Start: 07-24-2022 End: 07-24-2022 Patient encounter status Ivan Edwin Lobo DO Work Phone: [facility] Start: 03-03-2017 Patient encounter status Johnnyomkar qi Lobo DO Work Phone: [facility] Work Phone: Procedures Date Procedure Procedure Detail Performing Clinician Start: 04-06-2024 Urnls dip stick/tabl et rgnt auto w/o microscopy Bulk Order Provider Start: 04-05-2024 Myocardial spect mul tiple studies Patrick Ibrahim MD Work Phone: Start: 01-27-2024 HEARING TEST/AUDIOGRAM Patrick Ibrahim MD Work Phone: Start: 01-27-2024 Adult depression scr eening assessment Ivan Lobo DO Work Phone: Start: 01-27-2024 Lipid 1996 panel - S augustin or Plasma Anh DUGAN Work Phone: Start: 06-29-2023 Fundus photography w/interpretation & report Patrick Manisha Dejoseph MD Work Phone: Start: 09-11-2022 Chest x-ray 1 view frontal Patrick Ibrahim MD Work Phone: Start: 09-11-2022 Lipid 1996 panel - S augustin or Plasma Patrick Ibrahim MD Work Phone: Start: 08-07-2020 Colonoscopy Ivan victoria DO Work Phone: Plan of Treatment Date Care Activity Detail Author Start: 01-26-2029 Lipid panel Lipid Screening [facility] Start: 09-12-2027 Lipid panel Lipid Screening [facility] Start: 09-12-2027 LIPID SCREEN LIPID SCREEN [facility] Start: 01-26-2027 Diabetes Screening Diabetes Screening [facility] Start: 12-21-2025 Urine microalbumin profile [facility] Start: 09-11-2025 DIABETES SCREEN DIABETES SCREEN [facility] Start: 09-11-2025 Diabetes Screening Diabetes Screening [facility] Start: 08-07-2025 Colonoscopy COLONOSCOPY [facility] Start: 08-07-2025 COLORECTAL CANCER SCREENING COLORECTAL CANCER SCREENING [facility] Start: 08-07-2025 Screening for malignant neoplasm of colon [facility] Start: 07-06-2025 LIPID SCREEN LIPID SCREEN [facility] Start: 01-26-2025 Anxiety Screening Anxiety Screening [facility] Start: 01-26-2025 Depression Screening Depression Screening [facility] Start: 12-26-2024 End: 06-04-2025 Camera fundoscopy FUNDUS PHOTOS OU (BOTH EYES) [facility] Imaging Routine Routine general medical examination at a health care facility Expected: 12/26/2024, Expires: 06/04/2025 [facility] Work Phone: Comment on above: Expected: 12/26/2024, Expires: Start: 12-23-2024 Covid-19 Vaccine () Covid-19 Vaccine () [facility] Comment on above: Postponed from 11/16/2023 (Declined at t his time) Start: 11-27-2024 End: 02-26-2025 Prostate specific Ag [Mass/volume] in Serum or Plasma PROSTATE-SPECIFIC ANTIGEN DIAGNOSTIC Lab Routine History of elevated PSA Expected: 11/27/2024 (Approximate), Expires: 02/26/2025 [facility] Work Phone: Comment on above: Expected: 11/27/2024 (Approximate), Expi res: 02/26/2025 Start: 09-13-2024 Influenza vaccination Influenza Vaccine (#1) [place] [facility] Comment on above: Postponed from 11/16/2023 (Declined at t his time) Start: 08-23-2024 End: 08-23-2024 Patient encounter procedure 08/23/2024 7:40 AM EDT Office Visit [facility] [address] [place], [place] [phone] Ivan Lobo DO [address] [place], [place] [phone] [facility] Comment on above: Wellness Start: 05-03-2024 End: 08-02-2024 Prostate Specific Ag Free [Mass/volume] in Serum or Plasma PROSTATE SPECIFIC ANTIGEN, FREE Lab Routine Elevated prostate specific antigen (PSA) Expected: 05/03/2024, Expires: 08/02/2024 [facility] Work Phone: Comment on above: Expected: 05/03/2024, Expires: Start: 04-06-2024 End: 04-06-2024 Patient encounter procedure 04/06/2024 9:00 AM EST Office Visit Urology [address] [address] Dat Miles MD [address] [place] [address] elevated PSA-recent UTI Urology Comment on above: elevated PSA-recent UTI Start: 04-05-2024 End: 04-05-2024 Nursing evaluation of patient and report 04/05/2024 1:50 PM EST Nurse Visit Cardiology [address] [place], [place] [phone] Wstr, Nurse Card Admin [facility] [address] [place] [address] Abnormal electrocardiogram [R94.31] Cardiology Comment on above: Abnormal electrocardiogram [R94.31] Start: 04-05-2024 End: 04-05-2024 Patient encounter procedure 04/05/2024 1:50 PM EST Office Visit Cardiology [address] [place] [address] Wstr, Nurse Card Admin [place] [address] [place] [address] Abnormal ECG during exercise stress test [R94.31] Cardiology Comment on above: Abnormal ECG during exercise stress test [R94.31] Start: 04-05-2024 End: 04-05-2024 Patient encounter procedure Nuclear Medicine Comment on above: Abnormal electrocardiogram [R94.31] Start: 03-26-2024 End: 06-25-2024 Bacteria identified in Urine by Culture BACTERIAL CULTURE, URINE Microbiology Routine Abnormal PSA Abnormal urinalysis Expected: 03/26/2024, Expires: 06/25/2024 [facility] Comment on above: Expected: 03/26/2024, Expires: Start: 03-26-2024 End: 06-25-2024 Urinalysis complete panel - Urine URINALYSIS, WITH MICROSCOPIC Lab Routine Abnormal PSA Abnormal urinalysis Expected: 03/26/2024, Expires: 06/25/2024 [facility] Work Phone: Comment on above: Expected: 03/26/2024, Expires: Start: 03-22-2024 End: 03-22-2024 Patient encounter procedure 03/22/2024 1:50 PM EST Office Visit Cardiology [address] [place] [id number] Wstr, Nurse Card Admin [facility] [address] [place] [place] [id number] Abnormal ECG during exercise stress test [R94.31] Cardiology Comment on above: Abnormal ECG during exercise stress test [R94.31] Start: 03-05-2024 End: 06-04-2024 C reactive protein [Mass/volume] in Serum or Plasma C-REACTIVE PROTEIN Lab Routine Bloating Expected: 03/05/2024, Expires: 06/04/2024 [facility] Comment on above: Expected: 03/05/2024, Expires: Start: 03-05-2024 End: 06-04-2024 Helicobacter pylori [Quantitative] in Stomach by urea breath test BREATH TEST FOR HELICOBACTER PYLORI Lab Routine Bloating Expected: 03/05/2024, Expires: 06/04/2024 [facility] Work Phone: Comment on above: Expected: 03/05/2024, Expires: Start: 03-05-2024 End: 03-05-2024 Patient encounter procedure 03/05/2024 8:00 AM EST Office Visit Gastroenterology [address] [address] Teressa Pulido MD [address] [place] [address] CHANGE IN BOWELS HABITS Gastroenterology Comment on above: CHANGE IN BOWELS HABITS Start: 03-03-2024 End: 06-02-2024 PSA/PROSTATE SPECIFIC ANTIGEN SCREENING PSA/PROSTATE SPECIFIC ANTIGEN SCREENING Lab Routine Elevated PSA Expected: 03/03/2024, Expires: 06/02/2024 [facility] Work Phone: Comment on above: Expected: 03/03/2024, Expires: Start: 03-03-2024 End: 06-02-2024 Urinalysis complete panel - Urine URINALYSIS, WITH MICROSCOPIC Lab Routine Elevated PSA Expected: 03/03/2024, Expires: 06/02/2024 [facility] Comment on above: Expected: 03/03/2024, Expires: Start: 03-01-2024 End: 05-31-2024 Prostate specific Ag [Mass/volume] in Serum or Plasma [facility] Work Phone: Comment on above: Expected: 03/01/2024, Expires: Start: 02-18-2024 End: 02-18-2024 Patient encounter procedure 02/18/2024 5:40 PM EST Office Visit Family Medicine [place] [address] [place] [address] Ivan Lobo DO [address] [place] [address] Follow up Labs [facility] [place] Comment on above: Follow up Labs Start: 02-18-2024 End: 05-19-2024 PSA/PROSTATE SPECIFIC ANTIGEN SCREENING [facility] Comment on above: Expected: 02/18/2024, Expires: Start: 02-18-2024 End: 05-19-2024 Thyrotropin [Units/volume] in Serum or Plasma [facility] Work Phone: Comment on above: Expected: 02/18/2024, Expires: Start: 02-18-2024 End: 05-19-2024 Thyroxine (T4) free [Mass/volume] in Serum or Plasma [facility] Comment on above: Expected: 02/18/2024, Expires: Start: 02-18-2024 End: 05-19-2024 Triiodothyronine (T3) Free [Mass/volume] in Serum or Plasma [facility] Comment on above: Expected: 02/18/2024, Expires: Start: 02-17-2024 End: 02-17-2024 Patient encounter procedure 02/17/2024 2:30 PM EST Office Visit Gastroenterology [address] [address] Teressa Pulido MD [address] [place] [address] CHANGE IN BOWELS HABITS Gastroenterology Comment on above: CHANGE IN BOWELS HABITS Start: 01-27-2024 End: 01-27-2024 Nursing evaluation of patient and report 01/27/2024 11:00 AM EST Nurse Visit Internal Medicine [address] [address] Main, Bp José Antonio Intm Preventive [address] [place] [address] hold exec bill Internal Medicine Comment on above: hold exec bill Start: 01-27-2024 End: 01-27-2024 ambulatory [facility] A[facility] Comment on above: hold exec bill Start: 01-27-2024 End: 01-27-2024 Patient encounter procedure Internal Medicine Comment on above: Janette Hibbing Brittany CHANGE IN BOWELS HAB ITS Abnormal finding on EKG [R94.31] hold exec bill Exec hold bill Start: 12-24-2023 End: 03-24-2024 ALLERGEN FOOD PANEL RL1 ALLERGEN FOOD PANEL RL1 Lab Routine Altered bowel function Bloating Expected: 12/24/2023, Expires: 03/24/2024 [facility] Comment on above: Expected: 12/24/2023, Expires: Start: 12-24-2023 End: 03-24-2024 ALLERGEN FOOD PANEL RL2 ALLERGEN FOOD PANEL RL2 Lab Routine Altered bowel function Bloating Expected: 12/24/2023, Expires: 03/24/2024 [facility] Comment on above: Expected: 12/24/2023, Expires: Start: 12-24-2023 End: 03-24-2024 CELIAC COMPREHENSIVE PANEL CELIAC COMPREHENSIVE PANEL Lab Routine Altered bowel function Bloating Expected: 12/24/2023, Expires: 03/24/2024 [facility] Comment on above: Expected: 12/24/2023, Expires: Start: 12-24-2023 End: 03-24-2024 Helicobacter pylori IgG Ab [Presence] in Serum or Plasma by Immunoassay H PYLORI IGG AB Lab Routine Altered bowel function Bloating Expected: 12/24/2023, Expires: 03/24/2024 [facility] Work Phone: Comment on above: Expected: 12/24/2023, Expires: Start: 12-24-2023 End: 03-24-2024 OMEGACHECK OMEGACHECK Lab Routine Dyslipidemia Expected: 12/24/2023, Expires: 03/24/2024 [facility] Comment on above: Expected: 12/24/2023, Expires: 5 Start: 12-24-2023 End: 12-24-2023 Patient encounter procedure 12/24/2023 9:20 AM EDT Office Visit Family Medicine [place] [address] [facility] [place], [place] [address] Ivan Lobo, [address] [facility] [place], [place] [id number] physical [facility] Comment on above: physical Start: 12-12-2023 End: 03-12-2024 EX ALB/CREAT RND UR EX ALB/CREAT RND UR Lab Routine Laboratory examination Expected: 12/12/2023 (Approximate), Expires: 03/12/2024 [facility] Comment on above: Expected: 12/12/2023 (Approximate), Expi res: 03/12/2024 Start: 12-12-2023 End: 03-12-2024 EX UA CHEMSTRIP EX UA CHEMSTRIP Lab Routine Laboratory examination Expected: 12/12/2023 (Approximate), Expires: 03/12/2024 [facility] Comment on above: Expected: 12/12/2023 (Approximate), Expi res: 03/12/2024 Start: 12-12-2023 End: 03-12-2024 EXECUTIVE PANEL, MALE EXECUTIVE PANEL, MALE Lab Routine Laboratory examination Expected: 12/12/2023, Expires: 03/12/2024 [facility] Comment on above: Expected: 12/12/2023, Expires: Start: 11-16-2023 Influenza vaccination Influenza Vaccine (#1) [facility] Start: 10-24-2023 End: 10-24-2023 ambulatory 10/24/2023 10:30 AM EDT Results Only Cardiology [address] [address] exec hold bill Cardiology Comment on above: exec hold bill Start: 10-24-2023 End: 10-24-2023 Nursing evaluation of patient and report 10/24/2023 9:00 AM EDT Nurse Visit Internal Medicine [address] [address] Main, Bp José Antonio Int[facility] Preventive [address] [place] [address] exec hold bill Internal Medicine Comment on above: exec hold bill Start: 10-24-2023 End: 10-24-2023 ambulatory 10/24/2023 8:15 AM EDT Results Only [facility] [facility] [place] [address] [address] exec hold wander [facility] A[facility] Comment on above: exec hold bill Start: 10-24-2023 End: 10-24-2023 Patient encounter procedure Internal Medicine Comment on above: Janette exec hold wander Hibbing Brittany Start: 09-19-2023 COVID-19 VACCINE (4 - Booster for Pfizer series) COVID-19 VACCINE (4 - Booster for Pfizer series) [facility] Comment on above: Postponed from 04/19/2021 (Declined at t his time) Start: 09-19-2023 COVID-19 VACCINE (4 - Pfizer series) COVID-19 VACCINE (4 - Pfizer series) [facility] Comment on above: Postponed from 04/19/2021 (Declined at t his time) Start: 09-19-2023 HEPATITIS B (1 of 3 - 3-dose series) HEPATITIS B (1 of 3 - 3-dose series) [facility] Comment on above: Postponed from 1975 (Declined at t his time) Start: 07-07-2023 DIABETES SCREEN DIABETES SCREEN [facility] Start: 03-17-2023 Behavioral Health Screening Behavioral Health Screening [facility] Start: 11-15-2022 Covid-19 Vaccine ( season) Covid-19 Vaccine ( season) [facility] Start: 11-15-2022 Influenza vaccination [facility] Start: 07-25-2022 End: 09-24-2022 25-hydroxyvitamin D3 [Mass/volume] in Serum or Plasma VITAMIN D 25 HYDROXY Lab Routine Well adult exam Vitamin D deficiency Expected: 07/25/2022, Expires: 09/24/2022 [facility] Work Phone: Comment on above: Expected: 07/25/2022, Expires: 3 Start: 07-25-2022 End: 09-24-2022 C reactive protein [Mass/volume] in Serum or Plasma by High sensitivity method C-REACTIVE ULTRA SEN Lab Routine Well adult exam Expected: 07/25/2022, Expires: 09/24/2022 [facility] Work Phone: Comment on above: Expected: 07/25/2022, Expires: 3 Start: 07-25-2022 End: 09-24-2022 CBC W Auto Differential panel - Blood CBC + DIFF Lab Routine Well adult exam Expected: 07/25/2022, Expires: 09/24/2022 [facility] Work Phone: Comment on above: Expected: 07/25/2022, Expires: 3 Start: 07-25-2022 End: 09-24-2022 Cobalamin (Vitamin B12) [Mass/volume] in Serum or Plasma VITAMIN B12 BLOOD Lab Routine Well adult exam Expected: 07/25/2022, Expires: 09/24/2022 [facility] Work Phone: Comment on above: Expected: 07/25/2022, Expires: 3 Start: 07-25-2022 End: 09-24-2022 Comprehensive metabolic 2000 panel - Serum or Plasma COMP METABOLIC PANEL Lab Routine Well adult exam Expected: 07/25/2022, Expires: 09/24/2022 [facility] Work Phone: Comment on above: Expected: 07/25/2022, Expires: 3 Start: 07-25-2022 End: 09-24-2022 Hemoglobin A1c in Blood HGB A1C Lab Routine Well adult exam Expected: 07/25/2022, Expires: 09/24/2022 [facility] Work Phone: Comment on above: Expected: 07/25/2022, Expires: 3 Start: 07-25-2022 End: 09-24-2022 NMR LIPOPROTEIN PROFILE NMR LIPOPROTEIN PROFILE Lab Routine Well adult exam Expected: 07/25/2022, Expires: 09/24/2022 [facility] Work Phone: Comment on above: Expected: 07/25/2022, Expires: 3 Start: 07-25-2022 End: 09-24-2022 Thyrotropin [Units/volume] in Serum or Plasma TSH BLD Lab Routine Well adult exam Expected: 07/25/2022, Expires: 09/24/2022 [facility] Work Phone: Comment on above: Expected: 07/25/2022, Expires: 3 Start: 07-25-2022 End: 09-24-2022 Thyroxine (T4) free [Mass/volume] in Serum or Plasma T4 FREE/FREE THYROX Lab Routine Well adult exam Expected: 07/25/2022, Expires: 09/24/2022 [facility] Work Phone: Comment on above: Expected: 07/25/2022, Expires: 3 Start: 04-19-2021 COVID-19 VACCINE (4 - Booster for Pfizer series) COVID-19 VACCINE (4 - Booster for Pfizer series) [facility] Start: 02-21-2021 COLOGUARD (FIT-DNA) COLOGUARD (FIT-DNA) [facility] Start: 02-21-[address] COLONOGRAPHY [facility] Start: 02-21-2021 FECAL OCCULT BLOOD FECAL OCCULT BLOOD [facility] Start: 02-21-2021 Screening for malignant neoplasm of colon [facility] Start: 02-21-2021 SIGMOIDOSCOPY SIGMOIDOSCOPY [facility] Start: 02-21-1995 Hepatitis B Vaccine (1 of 3 - 19+ 3-dose series) Hepatitis B Vaccine (1 of 3 - 19+ 3-dose series) [facility] Start: 02-21-1994 Anxiety Screening Anxiety Screening [facility] Start: 02-21-1994 Depression Screening Depression Screening [facility] Start: 1975 HEPATITIS B (1 of 3 - 3-dose series) HEPATITIS B (1 of 3 - 3-dose series) [facility] Bacteria identified in Urine by Culture BACTERIAL CULTURE, URINE Microbiology Routine Abnormal PSA Abnormal urinalysis 03/27/2024 9:36 AM EST [facility] Calprotectin [Mass/m ass] in Stool CALPROTECTIN,FECAL Lab Routine Bloating Ordered: 03/05/2024 [facility] Comment on above: Ordered: 03/05/2024 End: 12-11-2024 ECG EXECUTIVE HEALTH ECG EXECUTIVE HEALTH ECG Routine Routine general medical examination at a health care facility 1 Occurrences starting 12/12/2023 until 12/11/2024 [facility] Comment on above: 1 Occurrences starting 12/12/2023 until 12/11/2024 End: 09-30-2024 EXEC STRESS ECHO (AMBULATORY ONLY) EXEC STRESS ECHO (AMBULATORY ONLY) Cardiology Routine Abnormal finding on EKG 1 Occurrences starting 10/01/2023 until 09/30/2024 [facility] Work Phone: Comment on above: 1 Occurrences starting 10/01/2023 until 09/30/2024 End: 01-25-2025 EXERCISE STRESS ECG (WITHOUT IMAGING) EXERCISE STRESS ECG (WITHOUT IMAGING) Cardiology Routine Routine general medical examination at a [facility] 1 Occurrences starting 01/26/2024 until 01/25/2025 [facility] Comment on above: 1 Occurrences starting 01/26/2024 until 01/25/2025 Giardia lamblia+Cryptosporidium sp Ag [Presence] in Stool by Immunoassay CRYPTOSPORIDIUM AND GIARDIA ANTIGENS BY EIA Microbiology Routine Bloating Ordered: 03/05/2024 [facility] Comment on above: Ordered: 03/05/2024 End: 12-12-2024 HEARING TEST/AUDIOGRAM HEARING TEST/AUDIOGRAM Audiology Routine Routine general medical examination at a [facility] care facility 1 Occurrences starting 12/12/2023 until 12/12/2024 [facility] Comment on above: 1 Occurrences starting 12/12/2023 until 12/12/2024 Helicobacter pylori Ag [Presence] in Stool by Immunoassay HELICOBACTER PYLORI ANTIGEN BY EIA, STOOL Microbiology Routine Helicobacter pylori ab+ Ordered: 02/18/2024 [facility] Comment on above: Ordered: 02/18/2024 End: 05-02-2025 NM Heart Perfusion W multiple states of exercise NM CARDIAC PERF STRESS/EXERCISE Radiology Routine Abnormal electrocardiogram 1 Occurrences starting 04/02/2024 until 05/02/2025 [facility] Work Phone: Comment on above: 1 Occurrences starting 04/02/2024 until 05/02/2025 End: 01-26-2025 STRESS ECHO TREADMILL STRESS ECHO TREADMILL Cardiology Routine Abnormal ECG during exercise stress test 1 Occurrences starting 01/27/2024 until 01/26/2025 [facility] Work Phone: Comment on above: 1 Occurrences starting 01/27/2024 until 01/26/2025 Ther px 1/> areas ea ch 15 minutes massage MASSAGE THERAPY Procedures Routine Myalgia Ordered: 09/11/2022 [facility] Work Phone: Comment on above: Ordered: 09/11/2022 Urinalysis complete panel - Urine URINALYSIS, WITH MICROSCOPIC Lab Routine Abnormal PSA Abnormal urinalysis 03/27/2024 9:36 AM EST [facility] End: 12-11-2024 VASCULAR SCREENING TEST VASCULAR SCREENING TEST Vascular Lab Routine Routine general medical examination at a health care facility 1 Occurrences starting 12/12/2023 until 12/11/2024 [facility] Comment on above: 1 Occurrences starting 12/12/2023 until 12/11/2024 [facility] Immunizations Immunization Date Immunization Notes Care Provider Johan nieto 2021 COVID-19 original vaccine, full dose, monovalent (MODERNA) Xr A21 [facility] Work Phone: 07-11-2020 COVID-19 original vaccine, age 12+ yr, monovalent (PFIZER-BIONTECH - PURPLE TOP) Ivan Lobo DO Work Phone: [facility] 06-09-2020 COVID-19 original vaccine, age 12+ yr, monovalent (PFIZER-BIONTECH - PURPLE TOP) Ivan Lobo DO Work Phone: [facility] Work Phone: 03-04-2018 influenza virus vaccine, unspecified formulation Patrick Irbahim MD Work Phone: [facility] 12-22-2015 tetanus toxoid, redu trudy diphtheria toxoid, and acellular pertussis vaccine, adsorbed Ivan Lobo DO Work Phone: [facility] Payers Date Payer Category Payer Self-pay 2023 Private Health Insurance [id number] 2020 Private Health Insurance [id number] Unknown [id number] Social History Date Type Detail Facility Start: [facility] Work Phone: Start: 07-24-2022 Tobacco use and exposure Smoke less tobacco non-user [facility] Work Phone: Start: 07-24-2022 End: 04-06-2024 Alcohol intake Current drinker of alcohol (finding) [facility] Start: 07-24-2022 End: 01-27-2024 Alcohol intake [facility] Start: 07-24-2022 History SDOH Alcohol Frequency 3 [facility] Start: 07-24-2022 History SDOH Alcohol Std Drinks 1 [facility] Start: 07-24-2022 History SDOH Social Connections Phone 5 [facility] Start: 07-24-2022 History SDOH Physica l Activity DPW 6 [facility] Start: 07-24-2022 History SDOH Physica l Activity MPS 4 [facility] Start: 07-24-2022 History SDOH Stress 2 [facility] Start: 07-24-2022 Tobacco Comment secondhand smo ke exposure as a child [facility] Start: 1975 Sex Assigned At Not on file C [facility] Start: 09-11-2022 Education 17 [facility] Start: 09-11-2022 Alcohol Comment 3-4 glasses of wine and rare beer [facility] Start: 07-24-2022 End: 01-27-2024 Social connection and isolation panel [facility] Do you belong to any clubs or organizations such as yazidism groups, unions, fraternal or athletic groups, or school groups? Yes [facility] Are you now , , , , never or living with a partner? [facility] How often to you hav e a drink containing alcohol? 2-4 times a month [facility] How many standard dr inks containing alcohol do you have on a typical day? 1 or 2 [facility] How often do you hav e 6 or more drinks on 1 occasion? Never [facility] How hard is it for y ou to pay for the very basics like food, housing, medical care, and heating Not hard at all [facility] Do you feel stress - tense, restless, nervous, or anxious, or unable to sleep at night because your mind is troubled all the time - these days [OSQ] Only a little [facility] (I/We) worried wheth er (my/our) food would run out before (I/we) got money to buy more. Never true [facility] In the past 12 month s, was there a time when you were not able to pay the mortgage or rent on time? No [facility] Start: 01-27-2024 Alcohol Comment 3-4 glasses of wine and rare beer, 2023 decreased further to 3 glasses a week, never > 2 glasses, and couple of times a week. [facility] Clinical Notes 07-24-2022 to 12-28-2024 Janet Amaya MA - 04/06/2024 10:04 AM Dat Hendricks MD - 04/06/2024 9:44 AM Candice Arndt RT(R) - 04/05/2024 12:30 PM Patrick Pimentel MD - 04/02/2024 12:04 PM EST Note Date & Type Note Facility 12-28-2024 Note HNO ID: [id number] Author: IVAN ALCANTAR RN Service: ? Author Type: Registered Nurse Type: Progress Notes Filed: 12/28/2024 10:18 Note Text: [facility] MALE PATIENT - HISTORY AND PHYSICAL EXAMINATION PATIENT: Demetri Santillan (49 year old) PCP: Ivan Lobo DO CHIEF COMPLAINT: f/u history of elevated PSA Clinic note from 04/06/2024 copied and updated. HISTORY OF PRESENT ILLNESS: Demetri Santillan is a 49 year old male with history of elevated PSA who presents for follow up evaluation. Per last OV note 04/06/24: Reports his PSA was checked and found to be 1.29 on 01/27/2024 Reports he had DANIS around this time and this was normal His PSA was 7.71 on 02/18/2024 PSA was rechecked afterwards and was found to be 4.99 03/01/2024 and 5.07 03/24/2024 Urine culture on 03/27/2024 revealed UTI with E Coli Presents today with updated PSA. PSA (ng/mL) Date Value 12/24/2024 0.70 05/26/2024 0.84 03/01/2024 4.99 09/11/2022 0.99 07/06/2020 0.95 12/22/2015 0.86 PSA Screening (ng/mL) Date Value 03/24/2024 5.07 02/18/2024 7.71 PSA, Percent Free (%) Date Value 05/26/2024 20 09/11/2022 32 07/06/2020 27 12/22/2015 26 Interval hx: Patient overall feeling well. He denies any bothersome LUTS. Denies any gross hematuria or dysuria. Denies ED. REVIEW OF SYSTEMS (2-9) GENERAL:No weight loss, malaise or fevers., SEE HPI GENITOURINARY: See HPI The remainder of the ROS was negative. Ivan Alcantar RN ====== UROLOGY ATTENDING ATTESTATION: The patient was personally seen and evaluated. The nurse's history and ROS were reviewed. I repeated the significant and relevant portions of the examination and formulated the final plan for management. HISTORY: PAST MEDICAL HISTORY Diagnosis Date Family history of colon cancer mother and paternal aunt Multiple lipomas Multiple nevi 2 x 2 mm on right upper back x 2, 7 x 2 mm on right lower back/flank Vitamin D insufficiency PAST SURGICAL HISTORY Procedure Laterality Date APPENDECTOMY 1999 ruptured, emergent, sepsis COLONOSCOPY 08/02/2015 Colonoscopy (MAC), 1 hyperplastic polyp COLONOSCOPY GEN ANES 08/07/2020 Repeat in 5 years FRACTURE SURGERY Left 2010 ulnar PAST SURGICAL HISTORY OF 2006 ACL repair of Right knee SOCIAL HISTORY[1] FAMILY HISTORY Problem Relation Age of Onset other (Smoker) Mother Alcohol abuse Mother liver disease Colon Cancer Mother 55 rectal cancer other (Car accident) Father at 48 No Known Problems Sister other (MVA) Brother multiple injuries Hypertension Maternal Grandmother at 96 Heart Maternal Grandfather Stroke Maternal Grandfather at 62 Hypertension Paternal Grandmother Diabetes Paternal Grandfather Hypertension Paternal Grandfather Stroke Paternal Grandfather Anxiety disorder Daughter well treated ADD/ADHD Daughter No Known Problems Daughter hx of heavier weight Colon Cancer Paternal Aunt 50 in her 60's MEDICATIONS: Current Outpatient Medications Medication Sig phenazopyridine (PYRIDIUM) 200 mg tablet Take 1 tablet by mouth three times a day as needed for pain (UTI pain). (Patient not taking: Reported on 04/06/2024) lutein 40 mg cap Take 1 capsule by mouth once daily. valACYclovir (VALTREX) 1 gram tablet Take 1 tablet by mouth three times a day as needed (cold sores). Bacillus coagulans-Inulin (PROBIOTIC WITH PREBIOTIC) 1 billion-250 cell-mg cap Take 2 capsules by mouth once daily. biotin 5 mg tab Take 1 tablet by mouth once daily. HOLD for 72 hours before labs FIBERCON 625 mg tablet 1 daily with 8 oz water, can titrate up to 3 tablets twice daily (Patient not taking: Reported on 04/06/2024) Cholecalciferol, Vitamin D3, 25 mcg (1,000 unit) cap Take 1 capsule by mouth once daily. omega 1-zvi-fhi-fish oil (FISH OIL) 100-160-1,000 mg cap Take 1 capsule by mouth once daily. Valerian Root 500 mg cap Take 1 capsule by mouth daily at bedtime. Herbal Drugs (CALMME) tab Take 1 tablet by mouth daily at bedtime. CALM FORTE magnesium carb,citrate,oxide (MAGNESIUM COMPLEX) 300 mg magnesium tab Take 1 tablet by mouth once daily. cyanocobalamin (VITAMIN B-12) 1,000 mcg tab Take 1,000 mcg by mouth once daily. No current facility-administered medications for this visit. PHYSICAL EXAMINATION: VITALS: There were no vitals taken for this visit. GENERAL: alert, no distress, normal affect EYES: no icterus, no discharge, conjugate gaze RESPIRATORY: normal effort, regular rate, no audible wheeze SKIN: no abnormal bruising, no rashes, no cyanosis NEUROLOGIC: normal gait, good manual dexterity, no paralysis OFFICE DATA: URINALYSIS: WNL OTHER DATA: Creatinine Date Value Ref Range Status 01/27/2024 1.03 0.73 - 1.22 mg/dL Final 09/11/2022 1.06 0.73 - 1.22 mg/dL Final 07/06/2020 1.01 0.73 - 1.22 mg/dL Final 03/29/2019 0.98 0.73 - 1.22 mg/dL Final PSA ( (more content not included)... [facility] 12-28-2024 Note Patient Outreach (UR OLMN) DEMETRI SANTILLAN ([id number]) 1975 M EXC Date Time Provider Department 12/28/24 DAT MILES During your visit today, we recorded the following information about you: Allergies As of Date: 12/28/2024 (No Known Allergies) Date Reviewed: 12/28/2024 Reviewed by: Sarah Conley MA - Fully Assessed Visit Diagnosis:Screening for genitourinary condition [Z13.89] Order(s):UA DIP, URINE (POC) [[id number]] Order #: [id number] FUTURE Prescriptions as of 12/31/2024 - phenazopyridine (PYRIDIUM) 200 mg tablet Take 1 tablet by mouth three times a day as needed for pain (UTI pain). - lutein 40 mg cap Take 1 capsule by mouth once daily. - valACYclovir (VALTREX) 1 gram tablet Take 1 tablet by mouth three times a day as needed (cold sores). - Bacillus coagulans-Inulin (PROBIOTIC WITH PREBIOTIC) 1 billion-250 cell-mg cap Take 2 capsules by mouth once daily. - biotin 5 mg tab Take 1 tablet by mouth once daily. HOLD for 72 hours before labs - FIBERCON 625 mg tablet 1 daily with 8 oz water, can titrate up to 3 tablets twice daily - Cholecalciferol, Vitamin D3, 25 mcg (1,000 unit) cap Take 1 capsule by mouth once daily. - omega 7-rfj-vro-fish oil (FISH OIL) 100-160-1,000 mg cap Take 1 capsule by mouth once daily. - Valerian Root 500 mg cap Take 1 capsule by mouth daily at bedtime. - Herbal Drugs (CALMME) tab Take 1 tablet by mouth daily at bedtime. CALM FORTE - magnesium carb,citrate,oxide (MAGNESIUM COMPLEX) 300 mg magnesium tab Take 1 tablet by mouth once daily. - cyanocobalamin (VITAMIN B-12) 1,000 mcg tab Take 1,000 mcg by mouth once daily. 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 Author Type: Actuarial Internship Type: Progress Notes Filed: 04/06/2024 11:34 Note Text: Post Void Residual done on patient with 19 cc residual volume remaining. notified. Janet Amaya MA [facility] 04-06-2024 History of Present illness Narrative Post Void Residual done on patient with 19 cc residual volume remaining. notified. Janet Amaya MA [facility] MALE PATIENT - HISTORY AND PHYSICAL EXAMINATION PATIENT: Demetri Santillan (49 year old) PCP: Ivan Lobo DO CHIEF COMPLAINT: elevated PSA HISTORY OF PRESENT ILLNESS: Demetri Santillan is a 49 year old male who presents for elevated PSA Reports his PSA was checked and found to be 1.29 on 01/27/2024 Reports he had DANIS around this time and this was normal His PSA was recently checked and found to be 7.71 on 02/18/2024 PSA was rechecked afterwards and was found to be 4.99 03/01/2024 and 5.07 03/24/2024 Urine culture on 03/27/2024 revealed UTI with E Coli He was given 2 week course of cipro Reports he did not have not have any symptoms prior this positive urine culture - no dysuria, hematuria, no urgency or frequency No flu like symptoms PSA (ng/mL) Date Value 03/01/2024 4.99 09/11/2022 0.99 07/06/2020 0.95 12/22/2015 0.86 PSA Screening (ng/mL) Date Value 03/24/2024 5.07 02/18/2024 7.71 PMH: none PSH: appendectomy Family hx: no known family hx of malignancies REVIEW OF SYSTEMS: CONSTITUTIONAL: no recent illnesses, normal energy levels, no pain GASTROINTESTINAL: no constipation, no diarrhea, no bloody stool GENITOURINARY: see history of present illness HISTORY: PAST MEDICAL HISTORY Diagnosis Date Family history of colon cancer mother and paternal aunt Multiple lipomas Multiple nevi 2 x 2 mm on right upper back x 2, 7 x 2 mm on right lower back/flank Vitamin D insufficiency PAST SURGICAL HISTORY Procedure Laterality Date APPENDECTOMY 2000 ruptured, emergent, sepsis COLONOSCOPY 08/02/2015 Colonoscopy (MAC), 1 hyperplastic polyp COLONOSCOPY GEN ANES 08/07/2020 Repeat in 5 years FRACTURE SURGERY Left 2010 ulnar PAST SURGICAL HISTORY OF 2006 ACL repair of Right knee Social History Tobacco Use Smoking status: Never Smokeless tobacco: Never Tobacco comments: secondhand smoke exposure as a child Vaping Use Vaping status: Never Used Substance Use Topics Alcohol use: Yes Alcohol/week: 4.0 standard drinks of alcohol Types: 4 Glasses of Wine (5oz) per week Comment: 3-4 glasses of wine and rare beer, 2023 decreased further to 3 glasses a week, never > 2 glasses, and couple of times a week. Drug use: No FAMILY HISTORY Problem Relation Age of Onset other (Smoker) Mother Alcohol abuse Mother liver disease Colon Cancer Mother 55 rectal cancer other (Car accident) Father at 48 No Known Problems Sister other (MVA) Brother multiple injuries Hypertension Maternal Grandmother at 96 Heart Maternal Grandfather Stroke Maternal Grandfather at 62 Hypertension Paternal Grandmother Diabetes Paternal Grandfather Hypertension Paternal Grandfather Stroke Paternal Grandfather Anxiety disorder Daughter well treated ADD/ADHD Daughter No Known Problems Daughter hx of heavier weight Colon Cancer Paternal Aunt 50 in her 60's MEDICATIONS: Current Outpatient Medications Medication Sig ciprofloxacin HCl (CIPRO) 500 mg tablet Take 1 tablet by mouth two times a day for 10 days. phenazopyridine (PYRIDIUM) 200 mg tablet Take 1 tablet by mouth three times a day as needed for pain (UTI pain). lutein 40 mg cap Take 1 capsule by mouth once daily. valACYclovir (VALTREX) 1 gram tablet Take 1 tablet by mouth three times a day as needed (cold sores). Bacillus coagulans-Inulin (PROBIOTIC WITH PREBIOTIC) 1 billion-250 cell-mg cap Take 2 capsules by mouth once daily. biotin 5 mg tab Take 1 tablet by mouth once daily. HOLD for 72 hours before labs FIBERCON 625 mg tablet 1 daily with 8 oz water, can titrate up to 3 tablets twice daily Cholecalciferol, Vitamin D3, 25 mcg (1,000 unit) cap Take 1 capsule by mouth once daily. omega 5-vdk-fsv-fish oil (FISH OIL) 100-160-1,000 mg cap Take 1 capsule by mouth once daily. Valerian Root 500 mg cap Take 1 capsule by mouth daily at bedtime. Herbal Drugs (CALMME) tab Take 1 tablet by mouth daily at bedtime. CALM FORTE magnesium carb,citrate,oxide (MAGNESIUM COMPLEX) 300 mg magnesium tab Take 1 tablet by mouth once daily. cyanocobalamin (VITAMIN B-12) 1,000 mcg tab Take 1,000 mcg by mouth once daily. No current facility-administered medications for this visit. PHYSICAL EXAMINATION: VITALS: BP 106/66 (BP Site: Left Arm, BP Position: Sitting, BP Cuff Size: Regular Adult) Pulse (!) 55 Ht 180.3 cm (5' 11) Wt 81 kg (178 lb 9.2 oz) BMI 24.91 kg/m GENERAL: alert, in no acute distress, normal affect EYES: no icterus, no discharge, conjugate gaze RESPIRATORY: normal effort, regular rate, no audible wheeze ABDOMEN: non-distended GENITOURINARY: - RECTAL: approximately 30 g prostate, no nodules - PELVIC FLOOR: normal tone, no tenderness EXTREMITIES: warm, no dependent edema, no malformations The sensitive examination was discussed with the Patient or Patient's Authorized Convalescent Sitter. As applicable, any other physician, advance practice provider, medical student, or other health professional student that will be observing or involved in the sensitive examination for educational or training purposes was discussed with the Patient or Authorized Convalescent Sitter. The Patient or Authorized Convalescent Sitter has agreed to proceed with the sensitive examination. (Sensitive examination includes inspection and/or palpation of the breasts, pelvis, prostate and anorectal regions) OFFICE DATA: POST-VOID RESIDUAL BLADDER VOLUME: 19 cc URINALYSIS: OUMOU Perera ====== UROLOGY ATTENDING ATTESTATION: The patient was personally seen and evaluated. The PA's history and physical examination were reviewed. I repeated the significant and relevant portions of the examination and formulated the final plan for management. OTHER DATA: Creatinine Date Value Ref Range Status 01/27/2024 1.03 0.73 - 1.22 mg/dL Final 09/11/2022 1.06 0.73 - 1.22 mg/dL Final 07/06/2020 1.01 0.73 - 1.22 mg/dL Final 03/29/2019 0.98 0.73 - 1.22 mg/dL Final PSA (ng/mL) Date Value 03/01/2024 4.99 09/11/2022 0.99 07/06/2020 0.95 12/22/2015 0.86 PSA Screening (ng/mL) Date Value 03/24/2024 5.07 02/18/2024 7.71 ASSESSMENT: Diagnosis: elevated PSA, cystitis - Acuity: acute - Severity: Moderate VISIT DIAGNOSES: ASSESSMENT/PLAN: 1. Elevated prostate specific antigen (PSA) - ICD9: 790.93, ICD10: R97.20 (primary diagnosis) - PROSTATE SPECIFIC ANTIGEN, FREE 2. Screening for genitourinary condition - ICD9: V81.6, ICD10: Z13.89 3. Acute cystitis without hematuria - ICD9: 595.0, ICD10: N30.00 PLAN: - continue abx (4 more days) - Plan recheck PSA 2-3 weeks after finishing abx (he will be traveling so will plan 05/03) - If PSA returns to baseline, recheck 3-6 months - If persistent elevated PSA, plan MRI prostate or IsoPSA in preparation for possible biopsy Dat Miles MD Staff Department of Urology [facility]ly [facility] Medical Decision Making: Problems: Moderate: New problem with uncertain prognosis Data: Unique test result(s) reviewed: 3+ Unique test(s) ordered: 1 Risk: Moderate: Moderate risk from testing/treatment Medical Decision Making Level: 4 - Moderate documented in this encounter [facility] 04-06-2024 Note HNO ID: [id number] Author: DAT MILES MD Service: ? Author Type: Physician Type: Progress Notes Filed: 04/06/2024 11:34 Note Text: [facility] M[facility] PATIENT - HISTORY AND PHYSICAL EXAMINATION PATIENT: Demetri Santillan (49 year old) PCP: Ivan Lobo DO CHIEF COMPLAINT: elevated PSA HISTORY OF PRESENT ILLNESS: Demetri Santillan is a 49 year old male who presents for elevated PSA Reports his PSA was checked and found to be 1.29 on 01/27/2024 Reports he had DANIS around this time and this was normal His PSA was recently checked and found to be 7.71 on 02/18/2024 PSA was rechecked afterwards and was found to be 4.99 03/01/2024 and 5.07 03/24/2024 Urine culture on 03/27/2024 revealed UTI with E Coli He was given 2 week course of cipro Reports he did not have not have any symptoms prior this positive urine culture - no dysuria, hematuria, no urgency or frequency No flu like symptoms PSA (ng/mL) Date Value 03/01/2024 4.99 09/11/2022 0.99 07/06/2020 0.95 12/22/2015 0.86 PSA Screening (ng/mL) Date Value 03/24/2024 5.07 02/18/2024 7.71 PMH: none PSH: appendectomy Family hx: no known family hx of malignancies REVIEW OF SYSTEMS: CONSTITUTIONAL: no recent illnesses, normal energy levels, no pain GASTROINTESTINAL: no constipation, no diarrhea, no bloody stool GENITOURINARY: see history of present illness HISTORY: PAST MEDICAL HISTORY Diagnosis Date Family history of colon cancer mother and paternal aunt Multiple lipomas Multiple nevi 2 x 2 mm on right upper back x 2, 7 x 2 mm on right lower back/flank Vitamin D insufficiency PAST SURGICAL HISTORY Procedure Laterality Date APPENDECTOMY 1999 ruptured, emergent, sepsis COLONOSCOPY 08/02/2015 Colonoscopy (MAC), 1 hyperplastic polyp COLONOSCOPY GEN ANES 08/07/2020 Repeat in 5 years FRACTURE SURGERY Left 2010 ulnar PAST SURGICAL HISTORY OF 2006 ACL repair of Right knee Social History Tobacco Use Smoking status: Never Smokeless tobacco: Never Tobacco comments: secondhand smoke exposure as a child Vaping Use Vaping status: Never Used Substance Use Topics Alcohol use: Yes Alcohol/week: 4.0 standard drinks of alcohol Types: 4 Glasses of Wine (5oz) per week Comment: 3-4 glasses of wine and rare beer, 2023 decreased further to 3 glasses a week, never > 2 glasses, and couple of times a week. Drug use: No FAMILY HISTORY Problem Relation Age of Onset other (Smoker) Mother Alcohol abuse Mother liver disease Colon Cancer Mother 55 rectal cancer other (Car accident) Father at 48 No Known Problems Sister other (MVA) Brother multiple injuries Hypertension Maternal Grandmother at 96 Heart Maternal Grandfather Stroke Maternal Grandfather at 62 Hypertension Paternal Grandmother Diabetes Paternal Grandfather Hypertension Paternal Grandfather Stroke Paternal Grandfather Anxiety disorder Daughter well treated ADD/ADHD Daughter No Known Problems Daughter hx of heavier weight Colon Cancer Paternal Aunt 50 in her 60's MEDICATIONS: Current Outpatient Medications Medication Sig ciprofloxacin HCl (CIPRO) 500 mg tablet Take 1 tablet by mouth two times a day for 10 days. phenazopyridine (PYRIDIUM) 200 mg tablet Take 1 tablet by mouth three times a day as needed for pain (UTI pain). lutein 40 mg cap Take 1 capsule by mouth once daily. valACYclovir (VALTREX) 1 gram tablet Take 1 tablet by mouth three times a day as needed (cold sores). Bacillus coagulans-Inulin (PROBIOTIC WITH PREBIOTIC) 1 billion-250 cell-mg cap Take 2 capsules by mouth once daily. biotin 5 mg tab Take 1 tablet by mouth once daily. HOLD for 72 hours before labs FIBERCON 625 mg tablet 1 daily with 8 oz water, can titrate up to 3 tablets twice daily Cholecalciferol, Vitamin D3, 25 mcg (1,000 unit) cap Take 1 capsule by mouth once daily. omega 1-xya-zen-fish oil (FISH OIL) 100-160-1,000 mg cap Take 1 capsule by mouth once daily. Valerian Root 500 mg cap Take 1 capsule by mouth daily at bedtime. Herbal Drugs (CALMME) tab Take 1 tablet by mouth daily at bedtime. CALM FORTE magnesium carb,citrate,oxide (MAGNESIUM COMPLEX) 300 mg magnesium tab Take 1 tablet by mouth once daily. cyanocobalamin (VITAMIN B-12) 1,000 mcg tab Take 1,000 mcg by mouth once daily. No current facility-administered medications for this visit. PHYSICAL EXAMINATION: VITALS: BP 106/66 (BP Site: Left Arm, BP Position: Sitting, BP Cuff Size: Regular Adult) Pulse (!) 55 Ht 180.3 cm (5' 11) Wt 81 kg (178 lb 9.2 oz) BMI 24.91 kg/m? GENERAL: alert, in no acute distress, normal affect EYES: no icterus, no discharge, conjugate gaze RESPIRATORY: normal effort, regular rate, no audible wheeze ABDOMEN: non-distended GENITOURINARY: - RECTAL: approximately 30 g prostate, no nodules - PELVIC FLOOR: normal tone, no tenderness EXTREMITIES: warm, no depe (more content not included)... [facility] 04-06-2024 Note Patient Outreach (UR OLMN) DEMETRI SANTILLAN ([id number]) 1975 M EXC Date Time Provider Department 04/06/24 DAT MILES During your visit today, we recorded the following information about you: Allergies As of Date: 04/06/2024 (No Known Allergies) Date Reviewed: 04/06/2024 Reviewed by: Janet Amaya MA - Fully Assessed Visit Diagnosis:Screening for genitourinary condition [Z13.89] Order(s):UA DIP, URINE (POC) [[id number]] Order #: [id number] FUTURE Prescriptions as of 04/09/2024 - ciprofloxacin HCl (CIPRO) 500 mg tablet Take 1 tablet by mouth two times a day for 10 days. - phenazopyridine (PYRIDIUM) 200 mg tablet Take 1 tablet by mouth three times a day as needed for pain (UTI pain). - lutein 40 mg cap Take 1 capsule by mouth once daily. - valACYclovir (VALTREX) 1 gram tablet Take 1 tablet by mouth three times a day as needed (cold sores). - Bacillus coagulans-Inulin (PROBIOTIC WITH PREBIOTIC) 1 billion-250 cell-mg cap Take 2 capsules by mouth once daily. - biotin 5 mg tab Take 1 tablet by mouth once daily. HOLD for 72 hours before labs - FIBERCON 625 mg tablet 1 daily with 8 oz water, can titrate up to 3 tablets twice daily - Cholecalciferol, Vitamin D3, 25 mcg (1,000 unit) cap Take 1 capsule by mouth once daily. - omega 5-beb-jyw-fish oil (FISH OIL) 100-160-1,000 mg cap Take 1 capsule by mouth once daily. - Valerian Root 500 mg cap Take 1 capsule by mouth daily at bedtime. - Herbal Drugs (CALMME) tab Take 1 tablet by mouth daily at bedtime. CALM FORTE - magnesium carb,citrate,oxide (MAGNESIUM COMPLEX) 300 mg magnesium tab Take 1 tablet by mouth once daily. - cyanocobalamin (VITAMIN B-12) 1,000 mcg tab Take 1,000 mcg by mouth once daily. 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] 02/18/2024 Bloating [R14.0] 02/18/2024 Helicobacter pylori ab+ [R76.8] 02/18/2024 Encounter Status:Closed by PRASANNA, PRODUSER on 04/09/24 [facility] 04-05-2024 History of Present illness Narrative RADIOLOGY SERVICE PROGRESS NOTE SERVICE DATE: 04/05/2024 SERVICE TIME: 12:45 PM PATIENT IDENTITY VERIFICATION COMPLETED USING TWO (2) STANDARD IDENTIFIERS: Name and Date of confirmed by patient verbally FALL SCREENING: Has the patient had 2 falls in the last year or 1 fall with injury or currently using an Ambulatory Assistive Device (Walker, Cane, Wheelchair, Crutches, etc.)? No PATIENT GENDER DATA: .male ALLERGIES: Reviewed and unchanged MEDICATIONS REVIEWED: No PATIENT RELEVANT IMPLANT DATA REVIEWED: Not Applicable PATIENT PRESENTS WITH AN IMPLANTABLE OR ATTACHED BILINGUAL SPANISH INBOUND SALES: n/a CREATININE: Creatinine Date Value Ref Range Status 01/27/2024 1.03 0.73 - 1.22 mg/dL Final 09/11/2022 1.06 0.73 - 1.22 mg/dL Final 07/06/2020 1.01 0.73 - 1.22 mg/dL Final Estimated Glomerular Filtration Rate Date Value Ref Range Status 01/27/2024 90 >=60 mL/min/1.73m Final Comment: Estimated Glomerular Filtration Rate (eGFR) is calculated using the 2020 CKD-EPI creatinine equation. This equation utilizes serum creatinine, sex, and age as parameters. The creatinine assay has traceable calibration to isotope dilution-mass spectrometry. Refer to KDIGO guidelines for clinical interpretation. In patients with unstable renal function, e.g. those with acute kidney injury, the eGFR may not accurately reflect actual GFR. eGFR- Date Value Ref Range Status 07/06/2020 >60 Final P.O.C.T. RESULTS: N/A April 05, [address] PERFORMED: No IV SITE: Ambulatory: A peripheral IV was started in the Right antecubital site with a Angio cath: 22 gauge. POST EXAM PIV STATUS: Discontinued PROCEDURE TYPE: NM Stress: 11.9 mCi [id number]-Kypvozk was administered IV for Rest Imaging at 12:50 by Candice Piedra. 35.6 mCi [id number]-Kyhljxz was administered IV for Stress Imaging at 14: by Candice Piedra. PATIENT DISCHARGED TO: Ambulatory patient, left [place] department area. Is this a therapy: No A Diagnostic radioactive procedure has taken place, with no further precautions necessary other than routine body substance precautions. More information regarding radiation safety can be found using this link: [email or web address] [email or web address] SIGNATURE: RT Carson (R) PATIENT NAME: Demetri Santillan DATE: April 05, 2024 TIME: 1:03 PM PAGER/CONTACT #: documented in this encounter [facility] 04-05-2024 Note HNO ID: [id number] Author: CANDICE PIEDRA RT (R) Service: Nuclear Medicine Author Type: Technologist Type: Progress Notes Filed: 04/05/2024 14:52 Note Text: RADIOLOGY SERVICE PROGRESS NOTE SERVICE DATE: 04/05/2024 SERVICE TIME: 12:45 PM PATIENT IDENTITY VERIFICATION COMPLETED USING TWO (2) STANDARD IDENTIFIERS: Name and Date of confirmed by patient verbally FALL SCREENING: Has the patient had 2 falls in the last year or 1 fall with injury or currently using an Ambulatory Assistive Device (Walker, Cane, Wheelchair, Crutches, etc.)? No PATIENT GENDER DATA: .male ALLERGIES: Reviewed and unchanged MEDICATIONS REVIEWED: No PATIENT RELEVANT IMPLANT DATA REVIEWED: Not Applicable PATIENT PRESENTS WITH AN IMPLANTABLE OR ATTACHED BILINGUAL SPANISH INBOUND SALES: n/a CREATININE: Creatinine Date Value Ref Range Status 01/27/2024 1.03 0.73 - 1.22 mg/dL Final 09/11/2022 1.06 0.73 - 1.22 mg/dL Final 07/06/2020 1.01 0.73 - 1.22 mg/dL Final Estimated Glomerular Filtration Rate Date Value Ref Range Status 01/27/2024 90 >=60 mL/min/1.73m? Final Comment: Estimated Glomerular Filtration Rate (eGFR) is calculated using the 2020 CKD-EPI creatinine equation. This equation utilizes serum creatinine, sex, and age as parameters. The creatinine assay has traceable calibration to isotope dilution-mass spectrometry. Refer to KDIGO guidelines for clinical interpretation. In patients with unstable renal function, e.g. those with acute kidney injury, the eGFR may not accurately reflect actual GFR. eGFR- Date Value Ref Range Status 07/06/2020 >60 Final P.O.C.T. RESULTS: N/A April 05, [address] PERFORMED: No IV SITE: Ambulatory: A peripheral IV was started in the Right antecubital site with a Angio cath: 22 gauge. POST EXAM PIV STATUS: Discontinued PROCEDURE TYPE: NM Stress: 11.9 mCi [id number]-Cafhzyn was administered IV for Rest Imaging at 12:50 by Candice Piedra. 35.6 mCi Mi36p-Zbubpbj was administered IV for Stress Imaging at 14: by Candice Piedra. PATIENT DISCHARGED TO: Ambulatory patient, left [place] department area. Is this a therapy: No A Diagnostic radioactive procedure has taken place, with no further precautions necessary other than routine body substance precautions. More information regarding radiation safety can be found using this link: [email or web address] 20Diagnostic%20Nuclear%20Medicine %[email or web address] SIGNATURE: RT Yamileth(R) PATIENT NAME: Demetri Santillan DATE: April 05, 2024 TIME: 1:03 PM PAGER/CONTACT #: [facility] 04-02-2024 Note HNO ID: [id number] Author: PATRICK IBRAHIM MD Service: ? Author Type: Physician Type: Progress Notes Filed: 04/02/2024 12:06 Note Text: Nm [facility] 04-02-2024 History of Present illness Narrative Nm documented in this encounter [facility] 03-30-2024 Telephone encounter Note Pt. called see telephone note. [facility] 03-30-2024 Miscellaneous Notes Pt. called see telephone note. documented in this encounter [facility] 03-30-2024 Telephone encounter Note Treadmill exercise stress echocardiogram instructions provided to patient via msg. [facility] 03-30-2024 Miscellaneous Notes Treadmill exercise stress echocardiogram instructions provided to patient via msg. documented in this encounter [facility] 03-30-2024 Telephone encounter Note Pt. informed. [facility] 03-30-2024 Miscellaneous Notes Pt. informed. Please call patient and have patient start on antibiotic Ciprofloxacin twice a day with food as below. Please make sure he is drinking at least 80 oz of water a day. Will need a recheck on urine culture in approximately 2 weeks. Likely he will be feeling better within 1-2 days but needs to complete the antibiotic as prescribed. Okay to keep Urologist appointment as well for follow up for the PSA to make sure this is just due to UTI or prostatitis that it was mildly elevated. Also okay to use pyridium rx or AZO over the counter as needed for discomfort- this can turn the urine orange colored Ivan Lobo DO The following approved medication requests have been transmitted electronically. Requested Prescriptions Signed Prescriptions Disp Refills ciprofloxacin HCl (CIPRO) 500 mg tablet 20 tablet 0 Sig: Take 1 tablet by mouth two times a day for 10 days. Authorizing Provider: IVAN LOBO phenazopyridine (PYRIDIUM) 200 mg tablet 30 tablet 0 Sig: Take 1 tablet by mouth three times a day as needed for pain (UTI pain). Authorizing Provider: IVAN LOBO DO Pt calling in as he [facility] and notes that it appears he does have a UTI. Pt is very uncomfortable. Having pain and burning with urination. He is not feeling well. He is asking that Dr. Lobo please review this as soon as possible. (Per previous notes, it appears pt has been adament about only Dr. Lobo handling this) Pt was upset as he is very anxious, concerned and not feeling well. He would like some answers and what he can expect. Pt does have a referral to a urologist at [facility] on 04/06. Culture >=100,000 CFU/ml Escherichia coli Abnormal Please call pt back after provider review. Pt uses [facility] in [place]. documented in this encounter [facility] 03-30-2024 Telephone encounter Note Please call patient and have patient start on antibiotic Ciprofloxacin twice a day with food as below. Please make sure he is drinking at least 80 oz of water a day. Will need a recheck on urine culture in approximately 2 weeks. Likely he will be feeling better within 1-2 days but needs to complete the antibiotic as prescribed. Okay to keep Urologist appointment as well for follow up for the PSA to make sure this is just due to UTI or prostatitis that it was mildly elevated. Also okay to use pyridium rx or AZO over the counter as needed for discomfort- this can turn the urine orange colored Ivan Lobo DO The following approved medication requests have been transmitted electronically. Requested Prescriptions Signed Prescriptions Disp Refills ciprofloxacin HCl (CIPRO) 500 mg tablet 20 tablet 0 Sig: Take 1 tablet by mouth two times a day for 10 days. Authorizing Provider: IVAN LOBO phenazopyridine (PYRIDIUM) 200 mg tablet 30 tablet 0 Sig: Take 1 tablet by mouth three times a day as needed for pain (UTI pain). Authorizing Provider: IVAN LOBO DO [facility] 03-30-2024 Telephone encounter Note Pt calling in as he reviewed his [facility] and notes that it appears he does have a UTI. Pt is very uncomfortable. Having pain and burning with urination. He is not feeling well. He is asking that Dr. Lobo please review this as soon as possible. (Per previous notes, it appears pt has been adament about only Dr. Lobo handling this) Pt was upset as he is very anxious, concerned and not feeling well. He would like some answers and what he can expect. Pt does have a referral to a urologist at [facility] on 04/06. Culture >=100,000 CFU/ml Escherichia coli Abnormal Please call pt back after provider review. Pt uses [facility] in [place]. [facility] 03-27-2024 Telephone encounter Note Pt. informed via My Chart. [facility] 03-27-2024 Miscellaneous Notes Pt. informed via My Chart. Would recommend the Urologists through [facility] in [facility] Such as Dr.Dennis Eugenio Lobo DO Patient returned call and went over results, notes from Dr Lobo, had to repeat several times to do repeat urine and culture. Patient said he wants to have a face to face to discuss this situation. Explained the need to do repeat urine and culture to see what the urine grows, if it is a UTI and then he wanted to know what he would be treated with. Explained again need the urine culture done to see what grows to see what he gets treated with. Patient asking for names for the Urologist referral please. Called and left a voicemail for the Patient to call back and ask for a nurse to receive the providers message. Jeannette Najera RN Please clarify what lab results he is concerned about His urinalysis that he just did showed white blood cells and leukocyte esterase which is made by white blood cells as well as bacteria. This needs to be repeated as a clean catch along with a urine culture since it isn't showing me a full picture of a UTI, it needs to be cultured to see if any bacteria grows out. The PSA lab is improved at 5.07 (vs. 7.71 at last lab 1 month ago), but it is still elevated. This needs to be seen by Urologist for follow up and opinion IF the urine culture is negative for a UTI. A UTI/prostatitis has a chance of causing an elevated PSA lab Ivan Lobo DO Patient calls back again for lab results from PCP. Declining [employer] review. Patient reports he is EXPECTING a call back from PCP personally by the end of the day. If PCP isn't accessible she can feel free to refer him to someone else that is. C-reactive protein is ordered by Dr. Teressa Pulido. Instructed patient to contact that office for those results. Disconnected the line as patient wasn't happy with anything I tried to explain. Taylor Martínez RN Pt asking if Yamil is able to get him OLVIN to go over recent test results as he is anxious and has some concerns. Patient refused [employer] and only wants Yamil. Please advise. Thank you documented in this encounter [facility] 03-27-2024 Telephone encounter Note Would recommend the Urologists through [facility] in [place] and [facility] Such as Dr.Dennis Eugenio Lobo DO [facility] 03-27-2024 Telephone encounter Note Patient returned call and went over results, notes from Dr Lobo, had to repeat several times to do repeat urine and culture. Patient said he wants to have a face to face to discuss this situation. Explained the need to do repeat urine and culture to see what the urine grows, if it is a UTI and then he wanted to know what he would be treated with. Explained again need the urine culture done to see what grows to see what he gets treated with. Patient asking for names for the Urologist referral please. [facility] 03-27-2024 Telephone encounter Note Called and left a voicemail for the Patient to call back and ask for a nurse to receive the providers message. Jeannette Najera RN [facility] 03-26-2024 Telephone encounter Note Please clarify what lab results he is concerned about His urinalysis that he just did showed white blood cells and leukocyte esterase which is made by white blood cells as well as bacteria. This needs to be repeated as a clean catch along with a urine culture since it isn't showing me a full picture of a UTI, it needs to be cultured to see if any bacteria grows out. The PSA lab is improved at 5.07 (vs. 7.71 at last lab 1 month ago), but it is still elevated. This needs to be seen by Urologist for follow up and opinion IF the urine culture is negative for a UTI. A UTI/prostatitis has a chance of causing an elevated PSA lab Ivan Lobo DO [facility] 03-26-2024 Telephone encounter Note Patient calls back again for lab results from PCP. Declining [employer] review. Patient reports he is EXPECTING a call back from PCP personally by the end of the day. If PCP isn't accessible she can feel free to refer him to someone else that is. C-reactive protein is ordered by Dr. Teressa Pulido. Instructed patient to contact that office for those results. Disconnected the line as patient wasn't happy with anything I tried to explain. Taylor Martínez RN [facility] 03-26-2024 Telephone encounter Note Pt asking if Lobo is able to get him OLVIN to go over recent test results as he is anxious and has some concerns. Patient refused [employer] and only wants Yamil. Please advise. Thank you [facility] 03-08-2024 Note HNO ID: [id number] Author: DEMETRI KOVACS, Parts Facilitator Service: ? Author Type: Parts Facilitator Type: Progress Notes Filed: 03/08/2024 10:26 Note Text: [employer] Summary The information included in this report is a comprehensive overview of the components of fitness necessary to maintain a higher quality of life. Upon completion of the fitness evaluation, this information has been customized to each individual in order for the evaluated individual to understand and utilize the major components of fitness, as well as the proper guidelines for exercising in a safe and effective manner. Each program is compiled as specified to individual needs and health goals. Patient Name: Demetri Santillan Date: January 27, 2024 [facility] Number: [id number] Health Rankin Fitness Rankin Hours Worked/ wk.: 40 Travel (%): 10 Health Related Goals: Continue weight loss. Fitness History: Currently running, cycling, walking, and taking fitness classes 3-4 days per week. Also plays tennis 3 times per week. Health Limitations: 1. Recommend a healthy diet, including a calcium intake of ~ 1000 mg/ day from food with supplementation as needed to achieve this goal and 1/2 of your body weight in ounces of non alcoholic,non caffeinated liquid/day. 2. Continue > 150 minutes a week of exercise. 3. Screening PSA ordered. 4. Ultrasound screening for AAA is normal. 5. Recommend Booster for COVID-19 and Influenza vaccine. 6. Recurrent cold sores; continue as needed Valtrex 2 grams, repeat once in 12 hours. 7. Vitamin D deficiency; well corrected. 8. Family history of colon cancer. 9. Change in bowel habits; suggest STOPPING MAGNESIUM, start Fiber Con and GI consult. 10. Abnormal ECG during exercise stress test in a very low risk individual with normal coronary arteries, as defined by Coronary Calcium Score of 0 . Cardiac risk assessment includes biochemical measures of lipids and inflammation, as well as testing of the electrical system with EKGs and looking at the coronary arteries with CT calcium scoring and assessment of cardiac function with stress testing. We can combine these test results to calculate the risk for a cardiac event in the coming decade using the BAGLEY Risk Calculator. We use this to guide the use of medication to mitigate risk. Your BAGLEY Risk Score is 1.23 %. Ordered STRESS ECHO TREADMILL Orthopedic Limitations/ Chronic Pain: None Current Activity: Type of exercise: Frequency (week) Duration (min) Mode: Intensity: Notes: Cardio: 4 60 Running Light to Moderate Cycling, Walking Resistance: 2 30 Free weights and calisthenics Light to Moderate Fitness Classes Flexibility: 1 60 Dynamic Stretching Light to Moderate Pilates Fitness Testing: See attached results for comparison of standards for age and gender. [facility] Pricing Consultant Strength: Right hand: 45 kilograms Left hand: 42 kilograms *Ranking: Below Average * Based on standardized ACSM guidelines for age and gender. Sit and Reach Score: 10 inches *Ranking: Very Poor * Based on standardized ACSM guidelines for age and gender. General Flexibility: Body Part Right Left Body Part Right Left Hamstrings: 3 3 Quadriceps: 2 2 Gastroc/ Soleus: 2 2 Shoulder IR: 3 2 Hip Internal Rot. 1 1 Shoulder ER: 2 3 Hip External Rot. 1 1 Neck Flex/Ext: 2 2 Straight Leg Raise 3 3 Neck Rot.: 2 2 Lower Back: 2 2 Neck Sidebend: 2 2 1= Excellent 2=Normal 3=Below Average Balance: Normal Squat Test: Normal Exercise Recommendations: Type of exercise: Frequency (week) Duration (min) Mode: Intensity: Notes: Cardiovascular: Frequency should be a minimum 5-7 times per week of moderate intensity or 3-4 of vigorous intensity. 30-60 minutes Recommended examples include, but are not limited to: Running, biking, hiking, elliptical, swimming, dancing, aerobics, spinning Please see RPE scale. Maintain a minimum of 150 minutes of cumulative cardiovascular exercise each week to meet [place] [employer] Guidelines. Anything beyond ten minutes of continuous cardiovascular exercise counts towards the 150 minute goal. 11-14 on RPE scale. For weight loss, it is most effective to build up to a minimum of 5 sessions per week. Two sessions should include interval training of alternating higher and lower intensity for 2-4 minute bursts for 20-30 minutes, and the other days should be moderate intensity exercise at a constant pace for 45-60 minutes. When just starting cardiovascular exercise, it is most effective to begin with light to moderate intensity cardio, and gradually increase the time and intensity. To improve cardiovascular performance, it is most effective to include interval training of alternating higher and lower intensities for 2-4 minute bursts for at least 20 minutes. Resistance: Frequency should be a minimum of two times per week for each major muscle group. When isolating muscles, the frequency may (more content not included)... [facility] 03-08-2024 History of Present illness Narrative [employer] Summary The information included in this report is a comprehensive overview of the components of fitness necessary to maintain a higher quality of life. Upon completion of the fitness evaluation, this information has been customized to each individual in order for the evaluated individual to understand and utilize the major components of fitness, as well as the proper guidelines for exercising in a safe and effective manner. Each program is compiled as specified to individual needs and health goals. Patient Name: Demetri Santillan Date: January 27, 2024 [facility] Number: [id number] Health Rankin Fitness Rankin Hours Worked/ wk.: 40 Travel (%): 10 Health Related Goals: Continue weight loss. Fitness History: Currently running, cycling, walking, and taking fitness classes 3-4 days per week. Also plays tennis 3 times per week. Health Limitations: 1. Recommend a healthy diet, including a calcium intake of ~ 1000 mg/ day from food with supplementation as needed to achieve this goal and 1/2 of your body weight in ounces of non alcoholic,non caffeinated liquid/day. 2. Continue > 150 minutes a week of exercise. 3. Screening PSA ordered. 4. Ultrasound screening for AAA is normal. 5. Recommend Booster for COVID-19 and Influenza vaccine. 6. Recurrent cold sores; continue as needed Valtrex 2 grams, repeat once in 12 hours. 7. Vitamin D deficiency; well corrected. 8. Family history of colon cancer. 9. Change in bowel habits; suggest STOPPING MAGNESIUM, start Fiber Con and GI consult. 10. Abnormal ECG during exercise stress test in a very low risk individual with normal coronary arteries, as defined by Coronary Calcium Score of 0 . Cardiac risk assessment includes biochemical measures of lipids and inflammation, as well as testing of the electrical system with EKGs and looking at the coronary arteries with CT calcium scoring and assessment of cardiac function with stress testing. We can combine these test results to calculate the risk for a cardiac event in the coming decade using the BAGLEY Risk Calculator. We use this to guide the use of medication to mitigate risk. Your BAGLEY Risk Score is 1.23 %. Ordered STRESS ECHO TREADMILL Orthopedic Limitations/ Chronic Pain: None Current Activity: Type of exercise: Frequency (week) Duration (min) Mode: Intensity: Notes: Cardio: 4 60 Running Light to Moderate Cycling, Walking Resistance: 2 30 Free weights and calisthenics Light to Moderate Fitness Classes Flexibility: 1 60 Dynamic Stretching Light to Moderate Pilates Fitness Testing: See attached results for comparison of standards for age and gender. [facility] Pricing Consultant Strength: Right hand: 45 kilograms Left hand: 42 kilograms *Ranking: Below Average * Based on standardized ACSM guidelines for age and gender. Sit and Reach Score: 10 inches *Ranking: Very Poor * Based on standardized ACSM guidelines for age and gender. General Flexibility: Body Part Right Left Body Part Right Left Hamstrings: 3 3 Quadriceps: 2 2 Gastroc/ Soleus: 2 2 Shoulder IR: 3 2 Hip Internal Rot. 1 1 Shoulder ER: 2 3 Hip External Rot. 1 1 Neck Flex/Ext: 2 2 Straight Leg Raise 3 3 Neck Rot.: 2 2 Lower Back: 2 2 Neck Sidebend: 2 2 1= Excellent 2=Normal 3=Below Average Balance: Normal Squat Test: Normal Exercise Recommendations: Type of exercise: Frequency (week) Duration (min) Mode: Intensity: Notes: Cardiovascular: Frequency should be a minimum 5-7 times per week of moderate intensity or 3-4 of vigorous intensity. 30-60 minutes Recommended examples include, but are not limited to: Running, biking, hiking, elliptical, swimming, dancing, aerobics, spinning Please see RPE scale. Maintain a minimum of 150 minutes of cumulative cardiovascular exercise each week to meet [place] Heart Association Guidelines. Anything beyond ten minutes of continuous cardiovascular exercise counts towards the 150 minute goal. 11-14 on RPE scale. For weight loss, it is most effective to build up to a minimum of 5 sessions per week. Two sessions should include interval training of alternating higher and lower intensity for 2-4 minute bursts for 20-30 minutes, and the other days should be moderate intensity exercise at a constant pace for 45-60 minutes. When just starting cardiovascular exercise, it is most effective to begin with light to moderate intensity cardio, and gradually increase the time and intensity. To improve cardiovascular performance, it is most effective to include interval training of alternating higher and lower intensities for 2-4 minute bursts for at least 20 minutes. Resistance: Frequency should be a minimum of two times per week for each major muscle group. When isolating muscles, the frequency may need to increase. 20-30 minutes See enclosed free weight program. 2-4 sets of 8-12 repetitions to exhaustion Safety and Effectiveness: Provide slow resistance in each direction and adapt the resistance to suit your strength capabilities. Allow for a day of rest in between sessions of the same muscle group. Do not hold your breath. Exhale during the most difficult portion of any lift. Initiate the enclosed strength training program and alter the routine every 6-12 weeks to prevent muscle memory. All exercises should be performed a minimum of twice a week to show gains. See enclosed 2+2 rule Resistance exercise can assist with weight loss by increasing your resting metabolic rate. Flexibility: 3-7 10-20 minutes Please see full body stretches. Each stretch should cause you to feel tension in the muscle, but never a sharp pain. Stretching is most effective when done either after or independent of exercise. A warm up is important in order to prevent injury. 20 seconds per stretch, and repeat each stretch 2-3 times; stretch any restricted muscles. Special Considerations: If you feel any unusual sensations during exercise including, but not limited to chest pain, nausea, lightheadedness, dizziness, extreme fatigue, or any sharp pain, discontinue exercise immediately and consult your physician. Any specific exercises that cause discomfort should be stopped and excluded from your routine. This exercise program is designed to be safe and effective, however, certain health conditions may arise that would change safety guidelines for exercise. Please check with your physician if you are newly diagnosed with heart disease, high blood pressure, diabetes, osteoporosis, arthritis, or any other chronic condition. For additional information: [place] [employer]: www.acsm.org [place] on Exercise: www.acefitness.org [employer] [place] of [employer]: www.nih.gov Clinician: Demetri Kovacs M.Ed. Parts Facilitator documented in this encounter [facility] 03-05-2024 Note HNO ID: [id number] Author: TERESSA PULIDO MD Service: ? Author Type: Physician Type: Progress Notes Filed: 03/09/2024 15:18 Note Text: NAME: Demteri Santillan CLINIC NO: [id number] REASON FOR VISIT Demetri Santillan is a 49 year old male who is scheduled for a consult at the request of Self. No chief complaint on file. PRESENTING COMPLAINT: Establish care-changes in stool consistency HISTORY OF PRESENTING ILLNESS: This is a 49 years old male with no significant past medical history presented in clinic today to establish care. Symptoms started a year ago while he was on private boat trip. He was really constipated followed by irregular bowel moments. He wont go to bathroom for 2-3 days followed by abdominal pain, bloating and multiple bowel moments and cycles repeats itself. He gained wait during this time He is now on gluten free diet and feels much better Current Clinical Symptoms # of bowel movements daily: every other day and more solids stools. # of liquid stools daily: NONE Consistency: formed Bloody bowel movements: no Urgency: no Abdominal pain: yes-occasional Abdominal distention: no Nausea/vomiting: no Weight loss over last 3 months: yes: 10 lbs on gluten free diet General well-being: very well PAST SURGICAL HISTORY Procedure Laterality Date APPENDECTOMY 2000 ruptured, emergent, sepsis COLONOSCOPY 08/02/2015 Colonoscopy (MAC), 1 hyperplastic polyp COLONOSCOPY GEN ANES 08/07/2020 Repeat in 5 years FRACTURE SURGERY Left 2010 ulnar PAST SURGICAL HISTORY OF 2006 ACL repair of Right knee PAST MEDICAL HISTORY Diagnosis Date Family history of colon cancer mother and paternal aunt Multiple lipomas Multiple nevi 2 x 2 mm on right upper back x 2, 7 x 2 mm on right lower back/flank Vitamin D insufficiency Current Outpatient Medications Medication Sig Dispense Refill lutein 40 mg cap Take 1 capsule by mouth once daily. valACYclovir (VALTREX) 1 gram tablet Take 1 tablet by mouth three times a day as needed (cold sores). 30 tablet 2 Bacillus coagulans-Inulin (PROBIOTIC WITH PREBIOTIC) 1 billion-250 cell-mg cap Take 2 capsules by mouth once daily. biotin 5 mg tab Take 1 tablet by mouth once daily. HOLD for 72 hours before labs FIBERCON 625 mg tablet 1 daily with 8 oz water, can titrate up to 3 tablets twice daily Cholecalciferol, Vitamin D3, 25 mcg (1,000 unit) cap Take 1 capsule by mouth once daily. omega 2-vmt-gji-fish oil (FISH OIL) 100-160-1,000 mg cap Take 1 capsule by mouth once daily. Valerian Root 500 mg cap Take 1 capsule by mouth daily at bedtime. Herbal Drugs (CALMME) tab Take 1 tablet by mouth daily at bedtime. CALM FORTE magnesium carb,citrate,oxide (MAGNESIUM COMPLEX) 300 mg magnesium tab Take 1 tablet by mouth once daily. cyanocobalamin (VITAMIN B-12) 1,000 mcg tab Take 1,000 mcg by mouth once daily. No current facility-administered medications for this visit. Patient has no known allergies. Recent Labs: CBC: WBC (k/uL) Date Value 01/27/2024 6.90 09/11/2022 5.68 Hematocrit (%) Date Value 01/27/2024 45.1 MCV (fL) Date Value 01/27/2024 91.5 Platelet Count (k/uL) Date Value 01/27/2024 264 Lymphocytes % (%) Date Value 01/27/2024 30.3 Hepatic Function Panel: Albumin (g/dL) Date Value 01/27/2024 4.7 01/27/2024 4.7 Bilirubin, Total (mg/dL) Date Value 01/27/2024 0.7 Alkaline Phosphatase (U/L) Date Value 01/27/2024 80 AST (U/L) Date Value 01/27/2024 25 ALT (U/L) Date Value 01/27/2024 22 Protein, Total (g/dL) Date Value 01/27/2024 7.2 Social History Tobacco Use Smoking status: Never Smokeless tobacco: Never Tobacco comments: secondhand smoke exposure as a child Vaping Use Vaping status: Never Used Substance Use Topics Alcohol use: Yes Alcohol/week: 4.0 standard drinks of alcohol Types: 4 Glasses of Wine (5oz) per week Comment: 3-4 glasses of wine and rare beer, 2023 decreased further to 3 glasses a week, never > 2 glasses, and couple of times a week. Drug use: No ROS EyesNegative for vision changes, diplopia or epiphora. Ears, Mouth, nose, throat:No problems Cardiovascular: No Problems Respiratory: Negative for cough, wheezing and shortness of breath Gastrointestinal : No problems Genitourinary: Negative Musuloskeletal: Normal Integumentary: no rashes, lesions, or jaundice Neurological: No history of neurologic problems Endocrine: Negative for cold or heat intolerance, polyuria, polydipsia and goiter. Psychiatric: Cooperative and agreeable Allergic/ Immunologic: Negative All others negative FAMILY HISTORY Problem Relation Age of Onset other (Smoker) Mother Alcohol abuse Mother liver disease Colon Cancer Mother 55 rectal cancer other (Car accident) Father at 48 No Known Problems Sister other (MVA) Brother multiple injuries Hypertension Maternal Grandmother at 96 Heart Maternal Grandfather Stroke Mat (more content not included)... [facility] 03-05-2024 History of Present illness Narrative NAME: Demetri Santillan CLINIC NO: [id number] REASON FOR VISIT Demetri Santillan is a 49 year old male who is scheduled for a consult at the request of Self. No chief complaint on file. PRESENTING COMPLAINT: Establish care-changes in stool consistency HISTORY OF PRESENTING ILLNESS: This is a 49 years old male with no significant past medical history presented in clinic today to establish care. Symptoms started a year ago while he was on private boat trip. He was really constipated followed by irregular bowel moments. He wont go to bathroom for 2-3 days followed by abdominal pain, bloating and multiple bowel moments and cycles repeats itself. He gained wait during this time He is now on gluten free diet and feels much better Current Clinical Symptoms # of bowel movements daily: every other day and more solids stools. # of liquid stools daily: NONE Consistency: formed Bloody bowel movements: no Urgency: no Abdominal pain: yes-occasional Abdominal distention: no Nausea/vomiting: no Weight loss over last 3 months: yes: 10 lbs on gluten free diet General well-being: very well PAST SURGICAL HISTORY Procedure Laterality Date APPENDECTOMY 1999 ruptured, emergent, sepsis COLONOSCOPY 08/02/2015 Colonoscopy (MAC), 1 hyperplastic polyp COLONOSCOPY GEN ANES 08/07/2020 Repeat in 5 years FRACTURE SURGERY Left 2010 ulnar PAST SURGICAL HISTORY OF 2006 ACL repair of Right knee PAST MEDICAL HISTORY Diagnosis Date Family history of colon cancer mother and paternal aunt Multiple lipomas Multiple nevi 2 x 2 mm on right upper back x 2, 7 x 2 mm on right lower back/flank Vitamin D insufficiency Current Outpatient Medications Medication Sig Dispense Refill lutein 40 mg cap Take 1 capsule by mouth once daily. valACYclovir (VALTREX) 1 gram tablet Take 1 tablet by mouth three times a day as needed (cold sores). 30 tablet 2 Bacillus coagulans-Inulin (PROBIOTIC WITH PREBIOTIC) 1 billion-250 cell-mg cap Take 2 capsules by mouth once daily. biotin 5 mg tab Take 1 tablet by mouth once daily. HOLD for 72 hours before labs FIBERCON 625 mg tablet 1 daily with 8 oz water, can titrate up to 3 tablets twice daily Cholecalciferol, Vitamin D3, 25 mcg (1,000 unit) cap Take 1 capsule by mouth once daily. omega 6-rex-bgh-fish oil (FISH OIL) 100-160-1,000 mg cap Take 1 capsule by mouth once daily. Valerian Root 500 mg cap Take 1 capsule by mouth daily at bedtime. Herbal Drugs (CALMME) tab Take 1 tablet by mouth daily at bedtime. CALM FORTE magnesium carb,citrate,oxide (MAGNESIUM COMPLEX) 300 mg magnesium tab Take 1 tablet by mouth once daily. cyanocobalamin (VITAMIN B-12) 1,000 mcg tab Take 1,000 mcg by mouth once daily. No current facility-administered medications for this visit. Patient has no known allergies. Recent Labs: CBC: WBC (k/uL) Date Value 01/27/2024 6.90 09/11/2022 5.68 Hematocrit (%) Date Value 01/27/2024 45.1 MCV (fL) Date Value 01/27/2024 91.5 Platelet Count (k/uL) Date Value 01/27/2024 264 Lymphocytes % (%) Date Value 01/27/2024 30.3 Hepatic Function Panel: Albumin (g/dL) Date Value 01/27/2024 4.7 01/27/2024 4.7 Bilirubin, Total (mg/dL) Date Value 01/27/2024 0.7 Alkaline Phosphatase (U/L) Date Value 01/27/2024 80 AST (U/L) Date Value 01/27/2024 25 ALT (U/L) Date Value 01/27/2024 22 Protein, Total (g/dL) Date Value 01/27/2024 7.2 Social History Tobacco Use Smoking status: Never Smokeless tobacco: Never Tobacco comments: secondhand smoke exposure as a child Vaping Use Vaping status: Never Used Substance Use Topics Alcohol use: Yes Alcohol/week: 4.0 standard drinks of alcohol Types: 4 Glasses of Wine (5oz) per week Comment: 3-4 glasses of wine and rare beer, 2023 decreased further to 3 glasses a week, never > 2 glasses, and couple of times a week. Drug use: No ROS EyesNegative for vision changes, diplopia or epiphora. Ears, Mouth, nose, throat:No problems Cardiovascular: No Problems Respiratory: Negative for cough, wheezing and shortness of breath Gastrointestinal : No problems Genitourinary: Negative Musuloskeletal: Normal Integumentary: no rashes, lesions, or jaundice Neurological: No history of neurologic problems Endocrine: Negative for cold or heat intolerance, polyuria, polydipsia and goiter. Psychiatric: Cooperative and agreeable Allergic/ Immunologic: Negative All others negative FAMILY HISTORY Problem Relation Age of Onset other (Smoker) Mother Alcohol abuse Mother liver disease Colon Cancer Mother 55 rectal cancer other (Car accident) Father at 48 No Known Problems Sister other (MVA) Brother multiple injuries Hypertension Maternal Grandmother at 96 Heart Maternal Grandfather Stroke Maternal Grandfather at 62 Hypertension Paternal Grandmother Diabetes Paternal Grandfather Hypertension Paternal Grandfather Stroke Paternal Grandfather Anxiety disorder Daughter well treated ADD/ADHD Daughter No Known Problems Daughter hx of heavier weight Colon Cancer Paternal Aunt 50 in her 60's PHYSICAL EXAMINATION General Appearance: alert, oriented x 3, pleasant and in no acute distress Eyes: No icterus or conjunctival pallor.. Oropharynx: Lips, tongue, and oral mucosa normal. Lungs: no audible wheez Heart: regular rate and rhythm Abdomen: Not distended. Extremities: no cyanosis or edema. Skin: no rashes Assessment IMPRESSION -Changes in stool consistency improving with gluten free diet PLAN Continue with gluten free diet Breath test for H pylori Blood and stool tests ordered Patient wants to hold off on colonoscopy Teressa Pulido MD, MD March 05, 2024 9:13 AM documented in this encounter [facility] 03-03-2024 Telephone encounter Note Patient notified and verbalized understanding. Li Chaudhry MA [facility] 03-03-2024 Miscellaneous Notes Patient notified and verbalized understanding. Li Chaudhry MA Please inform patient that his elevated PSA levels on 02/17 at >7 and recheck PSA level on 03/01 is improved to the 4's range. Would recommend rechecking PSA in 2-3 weeks again. If he is having increased urination, urinary frequency or urgency, can check UA and treat for potential acute prostatitis (inflammation/infection of prostate). If he isn't having any of these symptoms, can just wait and recheck labs and UA in 2-3 weeks Ivan Lobo DO Patient called requesting to review his labs wit pcp olvin he does not want to speak to a nurse and declined apt with [employer] Please advise documented in this encounter [facility] 03-03-2024 Telephone encounter Note Please inform patient that his elevated PSA levels on 02/17 at >7 and recheck PSA level on 03/01 is improved to the 4's range. Would recommend rechecking PSA in 2-3 weeks again. If he is having increased urination, urinary frequency or urgency, can check UA and treat for potential acute prostatitis (inflammation/infection of prostate). If he isn't having any of these symptoms, can just wait and recheck labs and UA in 2-3 weeks Ivan Lobo DO [facility] 03-03-2024 Telephone encounter Note Patient called requesting to review his labs wit pcp olvin he does not want to speak to a nurse and declined apt with [employer] Please advise [facility] Work Phone: 03-01-2024 Telephone encounter Note Patient returned call and went over results, notes from Dr Lobo with understanding. He will come in tomorrow and have other lab completed. [facility] 03-01-2024 Miscellaneous Notes Patient returned call and went over results, notes from Dr Lobo with understanding. He will come in tomorrow and have other lab completed. TC to pt. LM to call office, ask for triage nurse to get results. Rylie Nur LPN Please inform patient that his stool testing for H pylori is normal. Also his thyroid labs were all normal. His PSA was slightly elevated. I would like him to have testing with another repeat lab when able. Order placed Ivan Lobo DO documented in this encounter [facility] 03-01-2024 Telephone encounter Note TC to pt. LM to call office, ask for triage nurse to get results. Rylie Nur LPN [facility] 03-01-2024 Telephone encounter Note Please inform patient that his stool testing for H pylori is normal. Also his thyroid labs were all normal. His PSA was slightly elevated. I would like him to have testing with another repeat lab when able. Order placed Ivan Lobo DO [facility] 02-18-2024 Note HNO ID: [id number] Author: LOBO, IVAN, DO Service: ? Author Type: Physician Type: Progress Notes Filed: 02/18/2024 09:17 Note Text: CC: Demetri Santillan is a 48 year old male who presents to the office for lab review. HPI: Recently seen in the office for physical and had labs obtained. Found to have slightly low normal omega % as well as vitamin D deficiency at 37 and H pylori blood IgG positive. No known hx of H pylori infection. He was also found to have + type 3 for HLA type for Celiac risk He is overall changing his exercise patterns and increasing muscle building exercise Recurrent cold sores, interested in a medication for a flare up PAST MEDICAL HISTORY Diagnosis Date Family history of colon cancer mother and paternal aunt Multiple lipomas Multiple nevi 2 x 2 mm on right upper back x 2, 7 x 2 mm on right lower back/flank Vitamin D insufficiency PAST SURGICAL HISTORY Procedure Laterality Date APPENDECTOMY 1999 ruptured, emergent, sepsis COLONOSCOPY 08/02/2015 Colonoscopy (MAC), 1 hyperplastic polyp COLONOSCOPY GEN ANES 08/07/2020 Repeat in 5 years FRACTURE SURGERY Left 2010 ulnar PAST SURGICAL HISTORY OF 2006 ACL repair of Right knee Current Outpatient Medications Medication Sig valACYclovir (VALTREX) 1 gram tablet Take 1 tablet by mouth three times a day as needed (cold sores). Bacillus coagulans-Inulin (PROBIOTIC WITH PREBIOTIC) 1 billion-250 cell-mg cap Take 2 capsules by mouth once daily. biotin 5 mg tab Take 1 tablet by mouth once daily. HOLD for 72 hours before labs FIBERCON 625 mg tablet 1 daily with 8 oz water, can titrate up to 3 tablets twice daily Cholecalciferol, Vitamin D3, 25 mcg (1,000 unit) cap Take 1 capsule by mouth once daily. omega 3-zzo-oot-fish oil (FISH OIL) 100-160-1,000 mg cap Take 1 capsule by mouth once daily. Valerian Root 500 mg cap Take 1 capsule by mouth daily at bedtime. Herbal Drugs (CALMME) tab Take 1 tablet by mouth daily at bedtime. CALM FORTE magnesium carb,citrate,oxide (MAGNESIUM COMPLEX) 300 mg magnesium tab Take 1 tablet by mouth once daily. cyanocobalamin (VITAMIN B-12) 1,000 mcg tab Take 1,000 mcg by mouth once daily. No current facility-administered medications for this visit. ALLERGIES No Known Allergies Social History Tobacco Use Smoking status: Never Smokeless tobacco: Never Tobacco comments: secondhand smoke exposure as a child Vaping Use Vaping status: Never Used Substance Use Topics Alcohol use: Yes Alcohol/week: 4.0 standard drinks of alcohol Types: 4 Glasses of Wine (5oz) per week Comment: 3-4 glasses of wine and rare beer, 2023 decreased further to 3 glasses a week, never > 2 glasses, and couple of times a week. Drug use: No ROS: See HIP PE: BP 100/60 Pulse 64 Temp (Src) 97 (Left Tympanic) Resp 16 Wt 186 lb (84.4kg) Gen: AANDOX3, NAD, non-toxic appearing Discussion visit Cold sores on upper lips on right ASSESSMENT/PLAN: 1. 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 Helicobacter pylori ab+ - ICD9: 795.79, ICD10: R76.8 Check for active infection in stool Has had bloating - HELICOBACTER PYLORI ANTIGEN BY EIA, STOOL 3. Screening for prostate cancer - ICD9: V76.44, ICD10: Z12.5 - Counseled on healthy diet and regular exercise - PSA/PROSTATE SPECIFIC ANTIGEN SCREENING 4. Borderline abnormal thyroid function test - ICD9: 794.5, ICD10: R94.6 Check labs Was on biotin when last labs checked - THYROID STIMULATING HORMONE - T4 FREE/FREE THYROXINE - T3, FREE 5. Bloating - ICD9: 787.3, ICD10: R14.0 See above 6. Vitamin D deficiency - ICD9: 268.9, ICD10: E55.9 Increase dose of supplement as d/w him today Ivan Lobo DO I spent 35 minutes in the visit, with more than 50% of the total [id number] time of the visit in counseling / coordination of care. Return if no improvement. Follow up with Ivan Lobo DO. To ER if develops chest pain, shortness of breath, . Discussed risks, benefits, alternatives, and potential side effects of medications. Patient/Guardian expressed understanding and agreed with the plan. See patient instructions. Ivan Lobo DO [address] [place] [address] [facility] 02-18-2024 History of Present illness Narrative CC: Demetri Santillan is a 48 year old male who presents to the office for lab review. HPI: Recently seen in the office for physical and had labs obtained. Found to have slightly low normal omega % as well as vitamin D deficiency at 37 and H pylori blood IgG positive. No known hx of H pylori infection. He was also found to have + type 3 for HLA type for Celiac risk He is overall changing his exercise patterns and increasing muscle building exercise Recurrent cold sores, interested in a medication for a flare up PAST MEDICAL HISTORY Diagnosis Date Family history of colon cancer mother and paternal aunt Multiple lipomas Multiple nevi 2 x 2 mm on right upper back x 2, 7 x 2 mm on right lower back/flank Vitamin D insufficiency PAST SURGICAL HISTORY Procedure Laterality Date APPENDECTOMY 1999 ruptured, emergent, sepsis COLONOSCOPY 08/02/2015 Colonoscopy (MAC), 1 hyperplastic polyp COLONOSCOPY GEN ANES 08/07/2020 Repeat in 5 years FRACTURE SURGERY Left 2010 ulnar PAST SURGICAL HISTORY OF 2006 ACL repair of Right knee Current Outpatient Medications Medication Sig valACYclovir (VALTREX) 1 gram tablet Take 1 tablet by mouth three times a day as needed (cold sores). Bacillus coagulans-Inulin (PROBIOTIC WITH PREBIOTIC) 1 billion-250 cell-mg cap Take 2 capsules by mouth once daily. biotin 5 mg tab Take 1 tablet by mouth once daily. HOLD for 72 hours before labs FIBERCON 625 mg tablet 1 daily with 8 oz water, can titrate up to 3 tablets twice daily Cholecalciferol, Vitamin D3, 25 mcg (1,000 unit) cap Take 1 capsule by mouth once daily. omega 2-eiy-byj-fish oil (FISH OIL) 100-160-1,000 mg cap Take 1 capsule by mouth once daily. Valerian Root 500 mg cap Take 1 capsule by mouth daily at bedtime. Herbal Drugs (CALMME) tab Take 1 tablet by mouth daily at bedtime. CALM FORTE magnesium carb,citrate,oxide (MAGNESIUM COMPLEX) 300 mg magnesium tab Take 1 tablet by mouth once daily. cyanocobalamin (VITAMIN B-12) 1,000 mcg tab Take 1,000 mcg by mouth once daily. No current facility-administered medications for this visit. ALLERGIES No Known Allergies Social History Tobacco Use Smoking status: Never Smokeless tobacco: Never Tobacco comments: secondhand smoke exposure as a child Vaping Use Vaping status: Never Used Substance Use Topics Alcohol use: Yes Alcohol/week: 4.0 standard drinks of alcohol Types: 4 Glasses of Wine (5oz) per week Comment: 3-4 glasses of wine and rare beer, 2023 decreased further to 3 glasses a week, never > 2 glasses, and couple of times a week. Drug use: No ROS: See HIP PE: BP 100/60 Pulse 64 Temp (Src) 97 (Left Tympanic) Resp 16 Wt 186 lb (84.4kg) Gen: A&OX3, NAD, non-toxic appearing Discussion visit Cold sores on upper lips on right ASSESSMENT/PLAN: 1. 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 Helicobacter pylori ab+ - ICD9: 795.79, ICD10: R76.8 Check for active infection in stool Has had bloating - HELICOBACTER PYLORI ANTIGEN BY EIA, STOOL 3. Screening for prostate cancer - ICD9: V76.44, ICD10: Z12.5 - Counseled on healthy diet and regular exercise - PSA/PROSTATE SPECIFIC ANTIGEN SCREENING 4. Borderline abnormal thyroid function test - ICD9: 794.5, ICD10: R94.6 Check labs Was on biotin when last labs checked - THYROID STIMULATING HORMONE - T4 FREE/FREE THYROXINE - T3, FREE 5. Bloating - ICD9: 787.3, ICD10: R14.0 See above 6. Vitamin D deficiency - ICD9: 268.9, ICD10: E55.9 Increase dose of supplement as d/w him today Ivan Lobo DO I spent 35 minutes in the visit, with more than 50% of the total [id number]-vq-[id number] time of the visit in counseling / coordination of care. Return if no improvement. Follow up with Ivan Lobo DO. To ER if develops chest pain, shortness of breath, . Discussed risks, benefits, alternatives, and potential side effects of medications. Patient/Guardian expressed understanding and agreed with the plan. See patient instructions. Ivan Lobo DO [address] [place] [address] documented in this encounter [facility] 02-18-2024 Instructions Ivan Lobo DO - 02/18/2024 8:45 AM EST Your Celiac HLA type is positive for category 3, so you are at risk of gluten intolerance Increase your vitamin D3 by extra 1000 international unit(s) a day documented in this encounter [facility] 01-27-2024 Note HNO ID: [id number] Author: RAYSA JHAVERI RD Service: ? Author Type: Registered Dietitian Type: Progress Notes Filed: 01/27/2024 17:24 Note Text: [facility] Nutrition Progress Note Demetri Tzcheyannechris [id number] Assessment Physical Findings: Current Weight and Height: 84.3 kg (185 lb 14.4 oz) 180.3 cm (5' 11) Body mass index is 25.93 kg/m?. [place] BMI: 18.5-24.9 Percent body fat: 23.8 %, [place] body fat percentage is 10-20% for male. Weight corresponding to upper limit of normal body fat% range: 20%: 177 lbs Waist Circumference: 37 inches (Recommended waist circumference: 35.5 inches or less) Hip Circumference: 40.5 inches Waist to hip ratio: 0.91 ([place] waist/hip ratio: Male: 0.9 or less.) Patient's activity is: Activities of Daily Living: Sedentary (Desk job, seated for most of the day) Additional Activity: Moderately active (Moderate intensity exercise: Planned physical activity 3-5 days/week) Cardio 4x/week for 60 min Strength 3x/week for 30 min Patient's symptoms are: Weight Concerns: failure to lose weight Patient reported goal weight 178 lbs Diet history: obtained and reviewed Sometimes overeats at snacks or when overly hungry. Breakfast: coffee and apple or toast or smoothie Lunch: West salad or salad w salmon or Egyptian foods, or pasta or packs lunch (niuean salad with chicken or salad or quinoa salad with chips and salsa) Snack:pretzels or peanuts (2 handfuls) Dinner: protein and salad and starch Snack: sometimes ice cream Beverages: Coffee 1 cups/day - milk, Water 64 oz/day, ETOH: 3 glasses of wine per week Dining Out: 2-3 meals/week Nutrition Supplements: Fish oil, Vitamin D, B12, Magnesium, Prebiotic, Probiotic, Biotin, Turmeric, Valerian root Allergies: Patient has no known allergies. Past Medical History PAST MEDICAL HISTORY Diagnosis Date Family history of colon cancer mother and paternal aunt Multiple lipomas Multiple nevi 2 x 2 mm on right upper back x 2, 7 x 2 mm on right lower back/flank Vitamin D insufficiency Labs: available nutrition-related labs reviewed Lab Results Component Value Date GLUC 101 (H) 01/27/2024 HBA1C 4.9 01/27/2024 CHOL 149 01/27/2024 TG 117 01/27/2024 HDL 59 01/27/2024 LDL 67 01/27/2024 LDLCHOLDIR 77 01/27/2024 VITD25 37.4 01/27/2024 USCRP 1.6 01/27/2024 Medications: reviewed in chart and medical history questionnaire Malnutrition Screening Significant unintentional weight loss? No Eating less than 75% of usual intake for more than 2 weeks? No Learning Readiness: Motivation to Learn: Interested - Wants to learn Family/Significant Other Support: Unable - Family not present Cognitive Ability: Alert and Oriented Patient learns best by: Multiple Methods Factors affecting learning: None Physical limitation affecting learning: None Educational materials provided: Heart Healthy Plate Assessment: Body composition showing overweight per BMI standards with body fat 3.8% in excess and a waist circumference 1.5 above recommended. Waist to hip ratio is slightly elevated and visceral fat is WNL. Weight History/Weight Change: Pt has gained 5.2# BW, decreased 2.6# SMM, and had a decrease of 0.2% body fat since Disruptor Beam in 08/2022. Available labs: Elevated FBG. Food recall showing: Meeting Standard Recommendations for - red meat, whole grains, beans/lentils, fish, nuts/seeds, dairy/calcium, Below Standard Recommendations for - fruits, vegetables, Patient is interested in weight loss and following a healthy diet. Patient reports he struggles with consistency and routine. Nutrition Diagnosis: Behavioral-Environmental: Food and nutrition related knowledge deficit, related to, lack of prior exposure to information , as evidenced by verbalizes incomplete information. Nutrition Monitoring AND Evaluation: Implement dietary recommendations to support your goals to optimize body composition and follow a healthy diet to support overall health. Nutrition Interventions: Comprehensive nutrition evaluation focused on health promotion. Plan Specific Modifications: We discussed making the following changes to your meals/snacks to best support your health goals. Consistently have a snack after working out. Lowfat/nonfat niuean yogurt w granola and berries is a good option we discussed. Try dry roasted edamame for a good source of protein and fiber (The [employer] sell single serving packets that are convenient to have on hand). Remember that small changes will help you accomplish large goals. Losing weight at a slow and steady rate will help with longevity and sustained results. Limiting just 100 calories per day for a year would give you 10 lbs of weight loss. Try incorporating a snack at some point after lunch or before leaving work to avoid extreme hunger and overeating at dinner time. Focus on portion control and mindful eatin (more content not included)... [facility] 01-27-2024 History of Present illness Narrative [facility] Nutrition Progress Note Demetri Santillan [id number] Assessment Physical Findings: Current Weight and Height: 84.3 kg (185 lb 14.4 oz) 180.3 cm (5' 11) Body mass index is 25.93 kg/m . [place] BMI: 18.5-24.9 Percent body fat: 23.8 %, [place] body fat percentage is 10-20% for male. Weight corresponding to upper limit of normal body fat% range: 20%: 177 lbs Waist Circumference: 37 inches (Recommended waist circumference: 35.5 inches or less) Hip Circumference: 40.5 inches Waist to hip ratio: 0.91 ([place] waist/hip ratio: Male: 0.9 or less.) Patient's activity is: Activities of Daily Living: Sedentary (Desk job, seated for most of the day) Additional Activity: Moderately active (Moderate intensity exercise: Planned physical activity 3-5 days/week) Cardio 4x/week for 60 min Strength 3x/week for 30 min Patient's symptoms are: Weight Concerns: failure to lose weight Patient reported goal weight 178 lbs Diet history: obtained and reviewed Sometimes overeats at snacks or when overly hungry. Breakfast: coffee and apple or toast or smoothie Lunch: West salad or salad w salmon or Egyptian foods, or pasta or packs lunch (niuean salad with chicken or salad or quinoa salad with chips and salsa) Snack:pretzels or peanuts (2 handfuls) Dinner: protein and salad and starch Snack: sometimes ice cream Beverages: Coffee 1 cups/day - milk, Water 64 oz/day, ETOH: 3 glasses of wine per week Dining Out: 2-3 meals/week Nutrition Supplements: Fish oil, Vitamin D, B12, Magnesium, Prebiotic, Probiotic, Biotin, Turmeric, Valerian root Allergies: Patient has no known allergies. Past Medical History PAST MEDICAL HISTORY Diagnosis Date Family history of colon cancer mother and paternal aunt Multiple lipomas Multiple nevi 2 x 2 mm on right upper back x 2, 7 x 2 mm on right lower back/flank Vitamin D insufficiency Labs: available nutrition-related labs reviewed Lab Results Component Value Date GLUC 101 (H) 01/27/2024 HBA1C 4.9 01/27/2024 CHOL 149 01/27/2024 TG 117 01/27/2024 HDL 59 01/27/2024 LDL 67 01/27/2024 LDLCHOLDIR 77 01/27/2024 VITD25 37.4 01/27/2024 USCRP 1.6 01/27/2024 Medications: reviewed in chart and medical history questionnaire Malnutrition Screening Significant unintentional weight loss? No Eating less than 75% of usual intake for more than 2 weeks? No Learning Readiness: Motivation to Learn: Interested - Wants to learn Family/Significant Other Support: Unable - Family not present Cognitive Ability: Alert and Oriented Patient learns best by: Multiple Methods Factors affecting learning: None Physical limitation affecting learning: None Educational materials provided: Heart Healthy Plate Assessment: Body composition showing overweight per BMI standards with body fat 3.8% in excess and a waist circumference 1.5 above recommended. Waist to hip ratio is slightly elevated and visceral fat is WNL. Weight History/Weight Change: Pt has gained 5.2# BW, decreased 2.6# SMM, and had a decrease of 0.2% body fat since Disruptor Beam in 08/2022. Available labs: Elevated FBG. Food recall showing: Meeting Standard Recommendations for - red meat, whole grains, beans/lentils, fish, nuts/seeds, dairy/calcium, Below Standard Recommendations for - fruits, vegetables, Patient is interested in weight loss and following a healthy diet. Patient reports he struggles with consistency and routine. Nutrition Diagnosis: Behavioral-Environmental: Food and nutrition related knowledge deficit, related to, lack of prior exposure to information , as evidenced by verbalizes incomplete information. Nutrition Monitoring & Evaluation: Implement dietary recommendations to support your goals to optimize body composition and follow a healthy diet to support overall health. Nutrition Interventions: Comprehensive nutrition evaluation focused on health promotion. Plan Specific Modifications: We discussed making the following changes to your meals/snacks to best support your health goals. Consistently have a snack after working out. Lowfat/nonfat niuean yogurt w granola and berries is a good option we discussed. Try dry roasted edamame for a good source of protein and fiber (The [employer] sell single serving packets that are convenient to have on hand). Remember that small changes will help you accomplish large goals. Losing weight at a slow and steady rate will help with longevity and sustained results. Limiting just 100 calories per day for a year would give you 10 lbs of weight loss. Try incorporating a snack at some point after lunch or before leaving work to avoid extreme hunger and overeating at dinner time. Focus on portion control and mindful eating. Try setting your fork down in between bites, chewing your food thoroughly, and waiting at least 15 min after finishing a meal before getting seconds. Eating mindfully can help with appetite control, especially when consuming foods that you really enjoy. Fiber: Aim for 35-40 grams of fiber daily. Fiber is great for heart health, gastrointestinal health, blood sugar control, and weight management. Introduce fiber slowly to avoid gas and bloating. Whole food plants are high in fiber, increase intake of: whole grains (whole wheat bread/pasta, popcorn, farro/wheat berries, brown/wild rice, quinoa), starchy vegetables (corn, potatoes/sweet potatoes with the skin, peas, winter squash), fruits (especially berries and pears), starchy beans/peas (black beans, lentils, split peas, soy beans), and nuts/seeds (especially nathan seeds). Goal Setting: Making changes to your diet and lifestyle can be overwhelming if you try to change too much at once. Focus on a few things that are realistic. You identified the following goals to focus on to get started: Packing single snacks for work. General Healthy Eating: Eat a variety of foods from all food groups including a variety of colors. Different colors provide you with different nutrients and antioxidants. Aim for 1/2 plate of non-starchy vegetables, 1/4 plate of complex carbohydrates (whole grains, sweet potato, peas/corn, beans/lentils etc.), and 1/4 plate of lean protein foods (low-fat meat, fish, low-fat dairy, tofu/edamame, etc.) for meals when possible. Include a serving of fruit with meals or snacks at least twice per day. Aim for 3+ servings of vegetables per day. A serving is 2 cups salad, 1/2 cup cooked vegetables, or 1 cup raw vegetables. Consider calcium-fortified almond, soy, or other plant-based milk paired with leafy green vegetables to better meet your calcium needs on days you do not consume 2 servings of dairy products (8oz low-fat milk, 8oz low-fat yogurt, or 1oz cheese is one serving). Choose fish 2-3x per week, or plant-based omega-3s daily - nathan seeds, ground flax seeds, and walnuts are all good plant-based sources. Limit red meat to 0-2 servings per week, and limit processed meats (wilson, deli meats, etc.) as much as is realistic for optimal health. Incorporate starchy beans (black beans, montelongo beans, lentils, etc.) to increase soluble fiber and reduce meat portions. This may help cholesterol. Aim for at least 1/2 cup 3 times per week. Try adding these to salads, soups or pasta dishes. Hummus or loaiza dip is also a good option. Aim for 3 servings of nuts per week. 1 serving is 1/4 cup or 2 Tbsp of nut butter. Eat at least 3 times throughout the day including at least 3 food groups at each meal, and at least 2 food groups at each snack. Aim to include a fruit and/or vegetable with every meal and snack. Optimize Body Composition: Aim for 5796-4477 calories per day paired with exercise for a 0.5-1.5 lb per week weight loss. You may be able to see weight loss success by following the plate method of portion control alone - 1/2 plate vegetables, 1/4 plate grains/starchy vegetables, and 1/4 plate lean protein. Follow executive health physician guidance regarding activity limitations. Gradually work toward exercise guidelines provided by exercise physiology. Strength training is essential to maintain muscle mass. Consume high protein foods (totaling 25-35 g protein) with each meal or at least 3 times per day to best maintain muscle mass. Consume 2/3-3/4 of your calories before dinner for optimal fat loss. Criteria: lab values, body composition/weight, food recall, patient input. Follow up: at next Executive Physical Referred/Supervised by: [place]/Talia Narvaez Billing Type: body composition rate MNT: ea 15 minutes, 4 increments Signed by: Raysa Jhaveri RD documented in this encounter [facility] 01-27-2024 Nurse Note Pt. was identified by name and birthdate. Latex allergy: No Pend Hep C (needs completed once ages 18-79 years) 2020 Pend HIV (needs completed once ages 13-64 years) 2020 Medications will be reviewed by MD. Medication list reviewed by RN. Importance of a current medication list discussed with pt. Patient verbalizes good understanding. Date of last Colonoscopy: 2020 Next Due: q5yrs Immunizations Reviewed the following vaccines with patient. See also immunization section in Epic for vaccine history and vaccines patient received today. Td-na Tdap-2016 Pneumococcal- (Pneumovax 23)-na Prevnar 13- na PCV 20-na Hepatitis A-na Hepatitis B-na Vjwogyvky-djgw-kqsluycr Shingrix-na Covid-19 [id number]- 2020 RSV- na See Immunization record in EPIC. Discussed with patient current recommendations from the CDC for routine adult immunizations. Questions answered. Pt. verbalizes understanding of information discussed. Provided patient with [facility] Immunization System Document and VIS sheet. VISUAL ACUITY Patient declines vision exam Date of Last Exam - 2022 Vision Correction Reading Glasses . [facility] 01-27-2024 Nurse Note Pt. was identified by name and birthdate. Latex allergy: No Pend Hep C (needs completed once ages 18-79 years) 2020 Pend HIV (needs completed once ages 13-64 years) 2020 Medications will be reviewed by . Medication list reviewed by RN. Importance of a current medication list discussed with pt. Patient verbalizes good understanding. Date of last Colonoscopy: 2020 Next Due: q5yrs Immunizations Reviewed the following vaccines with patient. See also immunization section in Epic for vaccine history and vaccines patient received today. Td-na Tdap-2016 Pneumococcal- (Pneumovax 23)-na Prevnar 13- na PCV 20-na Hepatitis A-na Hepatitis B-na Ngsaueorq-xzcy-etgfilxn Shingrix-na Covid-19 [id number]- 2020 RSV- na See Immunization record in EPIC. Discussed with patient current recommendations from the CDC for routine adult immunizations. Questions answered. Pt. verbalizes understanding of information discussed. Provided patient with [facility] Immunization System Document and VIS sheet. VISUAL ACUITY Patient declines vision exam Date of Last Exam - 2022 Vision Correction Reading Glasses . 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 - biotin 5 mg tab Take 1 tablet by mouth once daily. HOLD for 72 hours before labs - FIBERCON 625 mg tablet 1 daily with 8 oz water, can titrate up to 3 tablets twice daily - Cholecalciferol, Vitamin D3, 25 mcg (1,000 unit) cap Take 1 capsule by mouth once daily. - omega 2-gcy-skc-fish oil (FISH OIL) 100-160-1,000 mg cap Take 1 capsule by mouth once daily. - Valerian Root 500 mg cap Take 1 capsule by mouth daily at bedtime. - Herbal Drugs (CALMME) tab Take 1 tablet by mouth daily at bedtime. CALM FORTE - magnesium carb,citrate,oxide (MAGNESIUM COMPLEX) 300 mg magnesium tab Take 1 tablet by mouth once daily. - cyanocobalamin (VITAMIN B-12) 1,000 mcg tab Take 1,000 mcg by mouth once daily. Letter Text Encounter Status:Closed by RAYSA JHAVERI on 01/27/24 [facility] 01-27-2024 History of Present illness Narrative EXECUTIVE PHYSICAL: HEARING SUMMARY Referred by: Patrick Ibrahim MD This patient was seen for puretone air conduction threshold test as part of a physical examination in [place] [address]. A brief case history and puretone air conduction thresholds were obtained. COMMUNICATION FUNCTION SCREENIN. Have you previously been diagnosed with a hearing loss or currently utilize amplification? No 2. Does a hearing problem cause you to feel frustrated when talking to members of your family? No 3. Does a hearing problem cause you difficulty hearing/understanding co-workers, clients, or customers? No 4. Do you feel that any difficulty with your hearing limits or hampers your personal or social life? No HEARING SENSITIVITY RESULTS: Refer to the hearing test in the procedures tab for air conduction thresholds. NOTE: Testing involved assessment of air conduction thresholds only. The results should not be considered a comprehensive diagnostic audiologic evaluation. RIGHT EAR: Hearing sensitivity is within normal limits and adequate for communication function. LEFT EAR: Hearing sensitivity is within normal limits and adequate for communication function. COMPARISON: Comparison of today's results with previous air-conduction testing (07/06/2020): Today's results reveal no significant change in both ears INTERPRETATION AND RECOMMENDATIONS: * Air-Conduction thresholds were obtained within normal limits in both ears. Retest as medically indicated or sooner if a change in hearing is noted. * Use hearing protective devices when exposed to loud noise to promote hearing loss prevention. I verify that I have reviewed the pure-tone air-conduction threshold testing and this report. Jodee Nicole, [facility] Clinical Mica Builder DEFINITIONS: Severity Descriptors Severity Range of intensity in decibels (dB) Normal 0-25 dB Mild 25-45 dB Moderate 45-60 dB Severe 60-90 dB Profound 90+ dB documented in this encounter [facility] 01-27-2024 Note HNO ID: [id number] Author: ANH CASTRO AUD Service: ? Author Type: Mica Builder Type: Progress Notes Filed: 01/27/2024 08:05 Note Text: EXECUTIVE PHYSICAL: HEARING SUMMARY Referred by: Patrick Ibrahim MD This patient was seen for puretone air conduction threshold test as part of a physical examination in [place] [address]. A brief case history and puretone air conduction thresholds were obtained. COMMUNICATION FUNCTION SCREENIN. Have you previously been diagnosed with a hearing loss or currently utilize amplification? No 2. Does a hearing problem cause you to feel frustrated when talking to members of your family? No 3. Does a hearing problem cause you difficulty hearing/understanding co-workers, clients, or customers? No 4. Do you feel that any difficulty with your hearing limits or hampers your personal or social life? No HEARING SENSITIVITY RESULTS: Refer to the hearing test in the procedures tab for air conduction thresholds. NOTE: Testing involved assessment of air conduction thresholds only. The results should not be considered a comprehensive diagnostic audiologic evaluation. RIGHT EAR: Hearing sensitivity is within normal limits and adequate for communication function. LEFT EAR: Hearing sensitivity is within normal limits and adequate for communication function. COMPARISON: Comparison of today's results with previous air-conduction testing (07/06/2020): Today's results reveal no significant change in both ears INTERPRETATION AND RECOMMENDATIONS: * Air-Conduction thresholds were obtained within normal limits in both ears. Retest as medically indicated or sooner if a change in hearing is noted. * Use hearing protective devices when exposed to loud noise to promote hearing loss prevention. I verify that I have reviewed the pure-tone air-conduction threshold testing and this report. Jodee Nicole, [facility] Clinical Mica Builder DEFINITIONS: Severity Descriptors Severity Range of intensity in decibels (dB) Normal 0-25 dB Mild 25-45 dB Moderate 45-60 dB Severe 60-90 dB Profound 90+ dB [facility] 01-27-2024 Note HNO ID: [id number] Author: PATRICK IBRAHIM MD Service: ? Author Type: Physician Type: Progress Notes Filed: 03/06/2024 11:39 Note Text: PRESENT COMPLAINTS: Mr. Demetri Santillan is a 48 year old man who presents for comprehensive medical examination and assessment. PRESENT MEDICATIONS: PROBIOTIC WITH PREBIOTIC: 2 daily. Cholecalciferol, Vitamin D3, 25 mcg (1,000 unit) capsule: 1 daily. Bradley 6-PVZ-iuk-fish oil (FISH OIL) 100-160-1,000 mg capsule: 1 daily. Valerian Root 500 mg capsule: 1 at bedtime. CALMME FORTE tablet: 1 at bedtime. Magnesium Complex carbonate, citrate,and oxide 300 mg tablet: 1 daily. Vitamin B-12/Cyanocobalamin 1,000 mcg tablet: 1 daily. Valacyclovir (VALTREX) 1 gram tablet:2 immediately and repeat once in 12 hours for cold sore. Biotin 5 mg tablet: 1 daily. HOLD for 72 hours before labs. FIBERCON 625 mg tablet: 1 daily with 8 oz water, can titrate to 6 daily ( NEW) Lutein 40 mg capsule: 1 daily. MEDICATION ALLERGIES: No Known Drug Allergies PAST MEDICAL HISTORY: Family History of Colon Cancer mother and paternal aunt. Multiple Nevi (2 x 2 mm on right upper back x 2, 7 x 2 mm on right lower back/flank. Vitamin D Insufficiency. Multiple Lipomas. PAST SURGICAL AND PROCEDURAL HISTORY: ACL repair of Right knee 2006 Appendectomy; ruptured, emergent, sepsis 1999 Repair of ulnar fracture 2010. Colonoscopy (MAC) 1 hyperplastic polyp 08/02/15, General Anesthesia,repeat in 5 years 08/07/20. FAMILY MEDICAL HISTORY: Mother: Smoker, Alcoholism with liver disease, Colorectal cancer dx 56, at 57. Father: Car accident, at 48. Sister: Melania 1974 No Known Medical Problems. Brother: Mike 1986 MVA with multiple injuries. Maternal Grandmother: Hypertension, at 96. Maternal Grandfather: Heart, Stroke, at 62. Paternal Grandmother: Hypertension, . Paternal Grandfather: Diabetes, Hypertension, Stroke, . Daughter: Jackelyn 2006 Well treated Anxiety disorder. Daughter: Ani 2008 ADD/ADHD. Daughter: Sole 2010 hx of heavier weight;normalized. Paternal Aunt: Colon Cancer, in her 60's. 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 Marital Status: to Vero with 3 daughters. Tobacco Use: Never. Alcohol Use: Approximately 3 Glasses of Wine / week. Caffeine: 1 large cup of coffee per day. Sleep: 7-7.5 hours per night, which is marginally adequate. Wears Bike Helmet and Seat Belt Diet Has gained weight and has increased snacking,looking to improve. Exercise: Tennis/pickle ball/ running/cycling for 60 minutes 4 X/ week, weight lifting 45 3 X/ week, yoga/stretching 30 minutes 4 X/ week. 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 Mild stress level at work reported. REVIEW OF SYSTEMS: GENERAL: No fever, chills, or night sweats. Weight up 5-10 lbs. Energy level is decent. DERMATOLOGIC: No new skin conditions, rashes or changing moles. Sees a felt strip finisher annually. EYES: No recent visual changes. Last eye exam within the past year. ENT: No hearing loss or tinnitus. Dental exams every 6 months. No significant allergies or recurrent sinus infections. RESPIRATORY: No cough, dyspnea, or wheezing. CARDIOVASCULAR: No chest pain with exertion or at rest, palpitations, exertional pre-syncope, or edema. GASTROINTESTINAL: No persistent heartburn, abdominal cramping, pains or rectal bleeding. Change in bowel habits; stool is not very solid and is irregular. GENITOURINARY: No problems with urinary stream, dysuria, frequency, urgency, incontinence, or erectile dysfunction.Nocturia x 1. MUSCULOSKELETAL: No joint pains, swelling,loss of range of motion, incapacitating or persistent back pain.Has myalgia. NEURO: No headaches, vertigo, balance problems,memory problems, weakness, numbness or tingling. PSYCHIATRIC: Problems falling asleep and staying asleep. No marital discord or anxiety. In the past 2 weeks have you: Cass down, depressed, or hopeless? NO Lost interest in your usual activities? NO HEMATOLOGIC/LYMPHATIC/IMMUNOLOGIC : No history of anemia,unusual bruising, or abnormal bleeding. ENDOCRINE: No cold intolerance, constipation, unexplained hair loss, unexplained weight gain, excessive thirst or excessive urination. PHYSICAL EXAM: Vital Signs: Blood pressure 121/77 mmHg, Pulse 77 Beats per minute Temperature 36.6 ?C (97.9 ?F), temperature source Temporal Artery, Height 180.3 cm (5' 11), Weight 85.7 kg (188 lb 15 oz). Body mass index is 26.35 kg/m?. GENERAL: Well developed, well nourished. No acute distress. SKIN: Inspection of the skin is unremarkable. No suspicious lesions. HEAD: The cranial shape and structures are normal. EYES: The conjunctiva and eyelids are normal. Sclera normal. EOM?s normal. EARS: External ear,auditory canals and tympanic membranes are normal. (more content not included)... [facility] 01-27-2024 History of Present illness Narrative PRESENT COMPLAINTS: Mr. Demetri Santillan is a 48 year old man who presents for comprehensive medical examination and assessment. PRESENT MEDICATIONS: PROBIOTIC WITH PREBIOTIC: 2 daily. Cholecalciferol, Vitamin D3, 25 mcg (1,000 unit) capsule: 1 daily. Bradley 7-IWF-csz-fish oil (FISH OIL) 100-160-1,000 mg capsule: 1 daily. Valerian Root 500 mg capsule: 1 at bedtime. CALMME FORTE tablet: 1 at bedtime. Magnesium Complex carbonate, citrate,and oxide 300 mg tablet: 1 daily. Vitamin B-12/Cyanocobalamin 1,000 mcg tablet: 1 daily. Valacyclovir (VALTREX) 1 gram tablet:2 immediately and repeat once in 12 hours for cold sore. Biotin 5 mg tablet: 1 daily. HOLD for 72 hours before labs. FIBERCON 625 mg tablet: 1 daily with 8 oz water, can titrate to 6 daily ( NEW) Lutein 40 mg capsule: 1 daily. MEDICATION ALLERGIES: No Known Drug Allergies PAST MEDICAL HISTORY: Family History of Colon Cancer mother and paternal aunt. Multiple Nevi (2 x 2 mm on right upper back x 2, 7 x 2 mm on right lower back/flank. Vitamin D Insufficiency. Multiple Lipomas. PAST SURGICAL AND PROCEDURAL HISTORY: ACL repair of Right knee 2006 Appendectomy; ruptured, emergent, sepsis 2000 Repair of ulnar fracture 2010. Colonoscopy (MAC) 1 hyperplastic polyp 08/02/15, General Anesthesia,repeat in 5 years 08/07/20. FAMILY MEDICAL HISTORY: Mother: Smoker, Alcoholism with liver disease, Colorectal cancer dx 55, at 57. Father: Car accident, at 48. Sister: Melania 1974 No Known Medical Problems. Brother: Mike 1986 MVA with multiple injuries. Maternal Grandmother: Hypertension, at 96. Maternal Grandfather: Heart, Stroke, at 62. Paternal Grandmother: Hypertension, . Paternal Grandfather: Diabetes, Hypertension, Stroke, . Daughter: Jackelyn 2005 Well treated Anxiety disorder. Daughter: Johannei 2008 ADD/ADHD. Daughter: Sole 2010 hx of heavier weight;normalized. Paternal Aunt: Colon Cancer, in her 60's. 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 Marital Status: to [place] with 3 daughters. Tobacco Use: Never. Alcohol Use: Approximately 3 Glasses of Wine / week. Caffeine: 1 large cup of coffee per day. Sleep: 7-7.5 hours per night, which is marginally adequate. Wears Bike Helmet and Seat Belt Diet Has gained weight and has increased snacking,looking to improve. Exercise: Tennis/pickle ball/ running/cycling for 60 minutes 4 X/ week, weight lifting 45 3 X/ week, yoga/stretching 30 minutes 4 X/ week. 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 Mild stress level at work reported. REVIEW OF SYSTEMS: GENERAL: No fever, chills, or night sweats. Weight up 5-10 lbs. Energy level is decent. DERMATOLOGIC: No new skin conditions, rashes or changing moles. Sees a felt strip finisher annually. EYES: No recent visual changes. Last eye exam within the past year. ENT: No hearing loss or tinnitus. Dental exams every 6 months. No significant allergies or recurrent sinus infections. RESPIRATORY: No cough, dyspnea, or wheezing. CARDIOVASCULAR: No chest pain with exertion or at rest, palpitations, exertional pre-syncope, or edema. GASTROINTESTINAL: No persistent heartburn, abdominal cramping, pains or rectal bleeding. Change in bowel habits; stool is not very solid and is irregular. GENITOURINARY: No problems with urinary stream, dysuria, frequency, urgency, incontinence, or erectile dysfunction.Nocturia x 1. MUSCULOSKELETAL: No joint pains, swelling,loss of range of motion, incapacitating or persistent back pain.Has myalgia. NEURO: No headaches, vertigo, balance problems,memory problems, weakness, numbness or tingling. PSYCHIATRIC: Problems falling asleep and staying asleep. No marital discord or anxiety. In the past 2 weeks have you: Cass down, depressed, or hopeless? NO Lost interest in your usual activities? NO HEMATOLOGIC/LYMPHATIC/IMMUNOLOGIC : No history of anemia,unusual bruising, or abnormal bleeding. ENDOCRINE: No cold intolerance, constipation, unexplained hair loss, unexplained weight gain, excessive thirst or excessive urination. PHYSICAL EXAM: Vital Signs: Blood pressure 121/77 mmHg, Pulse 77 Beats per minute Temperature 36.6 C (97.9 F), temperature source Temporal Artery, Height 180.3 cm (5' 11), Weight 85.7 kg (188 lb 15 oz). Body mass index is 26.35 kg/m . GENERAL: Well developed, well nourished. No acute distress. SKIN: Inspection of the skin is unremarkable. No suspicious lesions. HEAD: The cranial shape and structures are normal. EYES: The conjunctiva and eyelids are normal. Sclera normal. EOM s normal. EARS: External ear,auditory canals and tympanic membranes are normal. NOSE: The structures of the lower nose are normal. MOUTH: No lesions on the lips, tongue,oropharynx, buccal mucosa, or gums. NECK: The carotid pulses are normal and without bruits.No palpable lymph nodes. The thyroid is normal size without nodules. CHEST: Lungs clear to auscultation. No wheezes, rales or rhonchi. HEART: Regular rate and rhythm without murmur, gallop or rub. PERIPHERAL VASCULAR: Palpable distal pulses. No lower extremity edema. ABDOMEN: Soft, non-distended, non-tender with no organomegaly or masses. GENITAL: Normal external genitalia, no penile lesions, no testicular masses RECTAL: non tender bilobar prostate BACK AND EXTREMITIES: Gait, station, digits and nails are unremarkable. No muscle atrophy or fasciculations. No deformities. NEUROLOGICAL: Cranial nerves 2-12 are grossly intact. No neurological deficits. MENTAL STATUS: Alert, oriented,appropriate, no signs of depression or anxiety. STUDIES: Complete Blood Count: Normal. Metabolic Profile: The chemistry profile is normal including tests for kidney function, liver function, and electrolytes. Fasting Blood Sugar (Glucose): Slightly above normal at 101 mg/dL. Normal is up to 100, and diabetes is diagnosed at above 125. The intermediate area of 100-125 is termed Impaired Fasting Glucose, a component of pre-diabetes. Hemoglobin A1C (indicator of 12-week blood sugar average): Very normal at 4.9%. 4.0-5.6% is within normal range, 5.7-6.4% considered pre-diabetes, >6.4% is considered diabetic. Lipid Profile: Total cholesterol 149 mg/dL: LDL (bad) cholesterol normal at 67 mg/dL(direct LDL 77), HDL (good) cholesterol normal at 59 mg/dL, Triglycerides normal at 117 mg/dL Other Cardiac Risk Indicators: Ultrasensitive C-Reactive Protein (us-CRP): Normal at 1.6 mg/L. us-CRP <1.0 is low relative risk for cardiovascular events, 1.0 to 3.0 is considered average risk, and > 3.0 is increased risk for cardiovascular events. Apolipoprotein B: Nice and low at 60 mg/dL. Normal is < 110, Borderline risk is 111 - 127, and high risk is > 127. Lipoprotein (a): Nice and low at <6 mg/dL. Bradley Check of 4.8% above optimal of 5.4%. Urinalysis: Normal. Urine Albumin/Creatinine Ratio (accurate test for urinary protein): Normal at <12 mg/g. Thyroid Function (TSH and free T4): Normal. PSA (Prostate Specific Antigen): Normal at 0.99 ng/mL Testosterone: Normal at 553 ng/dl Labs reflecting nutrient intake: Vitamin B12: Normal at 721 pg/mL. Ferritin: Normal at 135.0 ng/mL. Iron: Normal at 97 ug/dL. Uric acid: Normal at 5.9 mg/dL. Normal range is 3.0 - 8.0. Vitamin D: Normal at 37.4 ng/mL. Normal range is 31-80 Percent Body Fat: 23.8 %. The desired range for men is 10-20%. Your maximum weight to achieve 20% body fat is 177 pounds. Your abdominal waist circumference is 37 inches. An abdominal waist circumference of greater than 35.5 inches is considered a risk factor for heart disease and diabetes. Your waist to hip ratio is 0.91. [place] waist to hip ratio for a man is 0.90 or less. Audiogram: Normal hearing in both ears, with no change from 07/06/2020. Calcium CT score: Was 0 AU 06/2020. Vascular screening: No plaque in either carotid or aorta. NO aortic aneurysm, and good blood flow thru the legs to the feet. EKG: Normal sinus rhythm at 72 beats per minute with normal axis and intervals. Stress Test: Abnormal at 11 METS and heart rate 109% of expected for age and gender. Functional capacity is between the 50th and the 75th percentile for age and gender. There was ST segment depression with stress that resolved with rest and was not accompanied by any symptoms. Stress Echo ordered to determine if the ST segment changes represent wall motion abnormality, CONCLUSIONS: Comprehensive health evaluation with physical examination, laboratory data, radiographic imaging and cardiac testing. Recommend a healthy diet, including a calcium intake of ~ 1000 mg/ day from food with supplementation as needed to achieve this goal and 1/2 of your body weight in ounces of non alcoholic,non caffeinated liquid/day. Continue > 150 minutes a week of exercise. Screening PSA ordered. Ultrasound screening for AAA is normal. Recommend Booster for COVID-19 and Influenza vaccine. Screening for depression - ICD9: V79.0, ICD10: Z13.31 DEPRESSION SCREENING & Encounter for screening examination for other mental health and behavioral disorders - ICD9: V79.8, ICD10: Z13.39ANXIETY SCREENING Recurrent cold sores; continue as needed Valtrex 2 grams, repeat once in 12 hours. Vitamin D deficiency; well corrected. Family history of colon cancer. Change in bowel habits; suggest STOPPING MAGNESIUM, start Fiber Con and GI consult. Abnormal ECG during exercise stress test in a very low risk individual with normal coronary arteries, as defined by Coronary Calcium Score of 0 . Cardiac risk assessment includes biochemical measures of lipids and inflammation, as well as testing of the electrical system with EKGs and looking at the coronary arteries with CT calcium scoring and assessment of cardiac function with stress testing. We can combine these test results to calculate the risk for a cardiac event in the coming decade using the BAGLEY Risk Calculator. We use this to guide the use of medication to mitigate risk. Your BAGLEY Risk Score is 1.23 %. Ordered STRESS ECHO TREADMILL For your convenience a downloadable version of the Executive Health program Reference Guide is now available on our website @ [email or web address]. RECOMMENDATIONS General health maintenance recommendations include a physical exam with primary care physician or executive health physician yearly. Colon cancer screening by colonoscopy every five years with a first degree relative with colon cancer. Immunizations recommended include: Influenza (flu) vaccination yearly in the fall, declined. Tetanus vaccination ,Tdap, every 10 years. Last 12/22/2015, without incident, and after five years in the event of a deep puncture wound COVID 19: Original vaccination and booster, followed by updated bivalent boosters. Pneumonia immunization is given at age 65, or earlier with risk factors such as asthma, diabetes, or immune compromise. RSV( Respiratory Synechial Virus) vaccine is given at age 60. Shingrix is given at age 50 to protect us from reactivation of the chicken pox virus we had as a child, known as shingles or herpes zoster. Please visit the [facility] website: [email or web address] For wellness information on such topics as supplements, how to sleep better, stress management and weight reduction See letter for final recommendations based on pending results Patrick Ibrahim MD documented in this encounter [facility] 12-24-2023 Telephone encounter Note Previsit call completed. confirmed. Reviewed department guidelines/changes with pt in regard to covid 19-pt verbalized understanding. Additional consults: None Q: will email [facility] 12-24-2023 Miscellaneous Notes Previsit call completed. confirmed. Reviewed department guidelines/changes with pt in regard to covid 19-pt verbalized understanding. Additional consults: None Q: will email documented in this encounter [facility] 12-24-2023 History of Present illness Narrative CC: Demetri Santillan is a 48 year old male who presents to the office for physical HPI: Overall he is doing well He is going to have an executive physical in 1 month He occasionally is having left calf pain after running, worse when on road to run, better when on trails to run. Going to work on changing shoes to see if this helps him. Bloating, abdominal distension and bowel changes over the last 15-18 months since he was on a cruise for 9 days. He feels that his gut health was affected. Prior to this, was having normal daily bowel movements. Now only every 3 days for BM and sometimes this is diarrhea. Overall eats a very healthy diet. No blood in stool. No vomiting, + 10 lbs of weight gain, no weight loss. Has a normal appetite. PAST MEDICAL HISTORY Diagnosis Date Family history of colon cancer mother and paternal aunt Multiple lipomas Multiple nevi 2 x 2 mm on right upper back x 2, 7 x 2 mm on right lower back/flank Vitamin D insufficiency PAST SURGICAL HISTORY Procedure Laterality Date APPENDECTOMY 2000 ruptured, emergent, sepsis COLONOSCOPY 08/02/2015 Colonoscopy (MAC), 1 hyperplastic polyp COLONOSCOPY GEN ANES 08/07/2020 Repeat in 5 years FRACTURE SURGERY Left 2010 ulnar PAST SURGICAL HISTORY OF 2006 ACL repair of Right knee Social History: Social History Tobacco Use Smoking status: Never Smokeless tobacco: Never Tobacco comments: secondhand smoke exposure as a child Vaping Use Vaping status: Never Used Substance Use Topics Alcohol use: Yes Alcohol/week: 5.0 standard drinks of alcohol Types: 4 Glasses of Wine (5oz), 1 Cans of Beer (12oz) per week Comment: 3-4 glasses of wine and rare beer Drug use: No FAMILY HISTORY Problem Relation Age of Onset Colon Cancer Mother 55 Rectal; 57 other (Alcoholism, with liver disease) Mother other (smoker) Mother other (Car accident) Father at 48 No Known Problems Sister other (MVA) Brother multiple injuries Hypertension Maternal Grandmother at 96 Heart Maternal Grandfather Stroke Maternal Grandfather at 62 Hypertension Paternal Grandmother Diabetes Paternal Grandfather Hypertension Paternal Grandfather Stroke Paternal Grandfather Anxiety disorder Daughter No Known Problems Daughter other (overweight) Daughter Colon Cancer Paternal Aunt 50 in her 60's Current Outpatient prescriptions: Cholecalciferol, Vitamin D3, 25 mcg (1,000 unit) cap Take 1 capsule by mouth once daily. omega 4-beq-mlq-fish oil (FISH OIL) 100-160-1,000 mg cap Take 1 capsule by mouth once daily. Valerian Root 500 mg cap Take 1 capsule by mouth daily at bedtime. Herbal Drugs (CALMME) tab Take 1 tablet by mouth daily at bedtime. CALM FORTE magnesium carb,citrate,oxide (MAGNESIUM COMPLEX) 300 mg magnesium tab Take 1 tablet by mouth once daily. melatonin 1 mg tablet Take 1-2 tablets by mouth daily at bedtime. cyanocobalamin (VITAMIN B-12) 1,000 mcg tab Take 1,000 mcg by mouth once daily. Allergies: ALLERGIES No Known Allergies ROS: See HPI PE: 12/24/23926 BP: 100/60 Pulse: (!) 56 Resp: 16 Temp: 36.1 C (97 F) TempSrc: Left Tympanic Weight: 87.1 kg (192 lb) Height: 182 cm (5' 11.65) Gen: A&O, NAD, non-toxic appearing, Pleasant, cooperative HEENT: NT/AC, PERRLA, EOMs intact b/l, nares clear and patent b/l, pharynx without erythema, exudate or lesions. Uvula midline. EACs without erythema or debris. TMs pearly champion with intact landmarks b/l. Neck: supple, No cervical LAD, no thyromegaly, no carotid bruits CV: RRR, normal S1 and S2, no murmurs, no gallops, no rubs, Pulses 2+ and symmetric in UE and LE b/l Lungs: normal respiratory effort, CTA b/l, no wheezing or rhonchi or rales Abd: soft, NT, ND, +BS, no hepatosplenomegaly MS: FROM all 4 extremities Neuro: CN II-XII intact b/l, strength 5/5 b/l UE and LE, DTRs 2/4 UE and LE, sensation intact. Skin: warm, dry, intact, No rashes or lesions on exposed skin. No edema, normal pulses ASSESSMENT/PLAN: 1. Well adult exam - ICD9: V70.0, ICD10: Z00.00 (primary diagnosis) - Counseled on healthy diet and regular exercise - Discussed need for and benefit of weight loss. BMI 26.29 kg/(m^2) 2. Altered bowel function - ICD9: 787.99, ICD10: R19.8 Labs as ordered He is scheduled to see Clearance Center Manager Consider improving gut health with adding increased prebiotics and probiotics. - H PYLORI IGG AB - CELIAC COMPREHENSIVE PANEL - ALLERGEN FOOD PANEL RL1 - ALLERGEN FOOD PANEL RL2 3. Bloating - ICD9: 787.3, ICD10: R14.0 See above - H PYLORI IGG AB - CELIAC COMPREHENSIVE PANEL - ALLERGEN FOOD PANEL RL1 - ALLERGEN FOOD PANEL RL2 4. Dyslipidemia - ICD9: 272.4, ICD10: E78.5 - Control undetermined, due for labs - Counseled on healthy diet and regular exercise - OMEGACHECK 5. Pain of left calf - ICD9: 729.5, ICD10: M79.662 Likely related to shoes or gait of his running, overall legs appear normal Consider wire hanger/PHYSICAL THERAPY if not improving Ivan Lobo DO To ER if develops chest pain, shortness of breath, or severe worsening of symptoms. Discussed risks, benefits, alternatives, and potential side effects of medications. Patient expressed understanding and agreed with the plan. Ivan Lobo DO [address] [place] [address] documented in this encounter [facility] 10-13-2023 Miscellaneous Notes Attempted to reach patient to discuss his VM requesting to reschedule his Exec Health physical on 10/23 . LVM for patient stating that [facility] would be reaching out to assist with rescheduling his appt. And for him to call [facility] nurse line. 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 LVM for patient stating that [facility] would be reaching out to assist with rescheduling his appt. And for him to call [facility] nurse line. [facility] 10-01-2023 Telephone encounter Note Yes , thanks [facility] 10-01-2023 Miscellaneous Notes Yes , thanks Pre-visit call attempted. LVM for patient to call [facility] nurse line in regards to executive physical on 10/23. Stress echo in 2020. Dr. Ibrahim, do you want to order repeat stress echo? documented in this encounter [facility] 10-01-2023 Telephone encounter Note Pre-visit call attempted. LVM for patient to call [facility] nurse line in regards to executive physical on 10/23. Stress echo in 2020. Dr. Ibrahim, do you want to order repeat stress echo? [facility] 10-31-2022 History of Present illness Narrative Executive Health Fitness Summary The information included in this report is a comprehensive overview of the components of fitness necessary to maintain a higher quality of life. Upon completion of the fitness evaluation, this information has been customized to each individual in order for the evaluated individual to understand and utilize the major components of fitness, as well as the proper guidelines for exercising in a safe and effective manner. Each program is compiled as specified to individual needs and health goals. Patient Name: Demetri Santillan Date: September 11, 2022 [facility] Number: [id number] Hours Worked/ wk: 40 Travel (%): 10 Health Related Goals: Consistent resistance training (2-3 days per week). Fitness History: Cardio 3 days per week; resistance training 2 days per week; yoga 1 day per week; tennis, pickleball and table tennis for sport. Health Limitations: 1. Recommend a healthy diet, including a calcium intake of approximately 1200 mg per day from food with supplementation as needed to achieve this goal and 1/2 of your body weight in ounces of non alcoholic, non caffeinated liquid/day. 2. Recommend > 150 minutes a week of exercise. 3. Colorectal cancer screening with Colonoscopy is up to date. 4. Risks/benefits of prostate cancer screening discussed, screening PSA is normal. 5. Recommend COVID-19 Bivalent Booster. 6. Myalgia continue Massage Therapy. Orthopedic Limitations/ Chronic Pain: L- knee; bilateral hips; low back pain; neck tension; L - shoulder history Current Activity: Type of exercise: Frequency (week) Duration (min) Mode: Intensity: Notes: Cardio: 3 60 Varies Moderate to Heavy run, cycle, walk Resistance: 2 30 Varies Moderate Peloton [employer]iya Classes Flexibility: 1 30 Yoga Moderate Fitness Testing: See attached results for comparison of standards for age and gender. [facility] Pricing Consultant Strength: Right hand: 44 kilograms Left hand: 40 kilograms *Ranking: Poor * Based on standardized ACSM guidelines for age and gender. Sit and Reach Score: 10 inches *Ranking: Poor * Based on standardized ACSM guidelines for age and gender. General Flexibility: Body Part Right Left Body Part Right Left Hamstrings: 3 3 Quadriceps: 2 2 Gastroc/ Soleus: 2 2 Shoulder IR: 2.5 1.5 Hip Internal Rot. 3 3 Shoulder ER: 1.5 2.5 Hip External Rot. 3 3 Neck Flex/Ext: 2/2 Straight Leg Raise 3 3 Neck Rot.: 2 Lower Back: 3 Neck Sidebend: 2 1= Excellent 2=Normal 3=Below Average 4=Poor Balance: Normal Squat Test: Normal Exercise Recommendations: Type of exercise: Frequency (week) Duration (min) Mode: Intensity: Notes: Cardiovascular: Frequency should be a minimum 5-7 times per week of moderate intensity or 3-4 of vigorous intensity. 30-60 minutes Recommended examples include, but are not limited to: Running, biking, hiking, elliptical, swimming, dancing, aerobics, spinning Please see RPE scale. Maintain a minimum of 150 minutes of cumulative cardiovascular exercise each week to meet [place] [employer] Association Guidelines. Anything beyond ten minutes of continuous cardiovascular exercise counts towards the 150 minute goal. Moderate: 3-5 Vigorous: 6-8 For weight loss, it is most effective to build up to a minimum of 5 sessions per week. Two sessions should include interval training of alternating higher and lower intensity for 2-4 minute bursts for 20-30 minutes, and the other days should be moderate intensity exercise at a constant pace for 45-60 minutes. When just starting cardiovascular exercise, it is most effective to begin with light to moderate intensity cardio, and gradually increase the time and intensity. To improve cardiovascular performance, it is most effective to include interval training of alternating higher and lower intensities for 2-4 minute bursts for at least 20 minutes. Resistance: Frequency should be a minimum of two times per week for each major muscle group. When isolating muscles, the frequency may need to increase. 20-30 minutes Continue current routine; increasing resistance and frequency as tolerated. Please see personal training information as well. 2-4 sets of 8-12 repetitions to exhaustion Safety and Effectiveness: Provide slow resistance in each direction and adapt the resistance to suit your strength capabilities. Allow for a day of rest in between sessions of the same muscle group. Do not hold your breath. Exhale during the most difficult portion of any lift. Initiate the enclosed strength training program and alter the routine every 6-12 weeks to prevent muscle memory. All exercises should be performed a minimum of twice a week to show gains. Please see additional total body exercises using free weights. Resistance exercise can assist with weight loss by increasing your resting metabolic rate. Flexibility: 3-7 10-20 minutes Each stretch should cause you to feel tension in the muscle, but never a sharp pain. Stretching is most effective when done either after or independent of exercise. A warm up is important in order to prevent injury. Please see full body stretches. 20 seconds per stretch, and repeat each stretch 2-3 times; stretch any restricted muscles. Balance/ Agility: 3-7 10-20 minutes Basic Balance Light Please see basic balance exercises. Special Considerations: If you feel any unusual sensations during exercise including, but not limited to chest pain, nausea, lightheadedness, dizziness, extreme fatigue, or any sharp pain, discontinue exercise immediately and consult your physician. Any specific exercises that cause discomfort should be stopped and excluded from your routine. This exercise program is designed to be safe and effective, however, certain health conditions may arise that would change safety guidelines for exercise. Please check with your physician if you are newly diagnosed with heart disease, high blood pressure, diabetes, osteoporosis, arthritis, or any other chronic condition. For additional information: [place] [employer]: www.acsm.org [place] on Exercise: www.acefitness.org [place] of Health: www.nih.gov Clinician: Erin Floyd MS Parts Facilitator [email or web address] documented in this encounter [facility] 09-11-2022 Nurse Note VISUAL ACUITY Date of Last Exam - couple months ago, wants eye exam per pt Explained vision testing to pt. Questions answered. Pt. verbalizes good understanding of information discussed. Vision Correction Reading Glasses FAR - Uncorrected: Right Eye 20/20, Left Eye 20/20, Both Eyes 20/20 NEAR - Uncorrected: Right Eye 20/20, Left Eye 20/30, Both Eyes 20/20 Tonometry: Left Eye 17, Right Eye 17 Fundus Photography Explained procedure to pt. Questions answered. Pt. verbalizes understanding of information discussed. Have you had a retinal picture done in the past year? Y/N: No Retinal picture done: Y/N: Yes Number of images taken: 4 Wearing contacts: Y/N: No Pt. was identified by name and birthdate. Latex allergy: No Pend Hep C (needs completed once ages 18-79 years) 07/06/2020 Pend HIV (needs completed once ages 13-64 years) 07/06/2020 Medications will be reviewed by . Medication list reviewed by RN. Importance of a current medication list discussed with pt. Patient verbalizes good understanding. Date of last Colonoscopy: 08/07/2020 Next Due: 2025 Immunizations Reviewed the following vaccines with patient. See also immunization section in Epic for vaccine history and vaccines patient received today. Td-unknown Tdap-12/22/2015 Pneumococcal- (Pneumovax 23)-NA Prevnar 13- NA PCV 20-NA Hepatitis A-NA Hepatitis B-NA Influenza-Patient declines Shingrix-NA Covid (monovalent)-02/22/2021, 06/21/2020, 06/09/2020 Covid (bivalent)-Patient declines See Immunization record in EPIC. Discussed with patient current recommendations from the CDC for routine adult immunizations. Questions answered. Pt. verbalizes understanding of information discussed. VISUAL ACUITY Date of Last Exam - couple months ago, wants eye exam per pt Vision Correction Reading Glasses BP José Antonio : BP José Antonio explained to pt. Questions answered. Pt. verbalizes understanding of information discussed. See BP José Antonio flowsheet for results. Spirometry: Spirometry testing done. 12/22/2015 documented in this encounter [facility] 09-11-2022 Instructions Patrick Ibrahim MD - 09/11/2022 12:38 PM EDT Latest Reference Range & Units 09/11/22 08:15 Sodium 136 - 144 mmol/L 140 Potassium 3.7 - 5.1 mmol/L 4.1 Chloride 97 - 105 mmol/L 103 CO2 22 - 30 mmol/L 26 BUN 9 - 24 mg/dL 10 Creatinine 0.73 - 1.22 mg/dL 1.06 Glucose 74 - 99 mg/dL 95 Protein, Total 6.3 - 8.0 g/dL 8.1 (H) Calcium 8.5 - 10.2 mg/dL 9.9 Albumin 3.9 - 4.9 g/dL 3.9 - 4.9 g/dL 5.2 (H) 5.1 (H) Bilirubin, Total 0.2 - 1.3 mg/dL 0.8 Alkaline Phosphatase 38 - 113 U/L 80 ALT 10 - 54 U/L 16 AST 14 - 40 U/L 21 Anion Gap 9 - 18 mmol/L 11 Uric Acid 4.0 - 8.1 mg/dL 6.5 GGT 10 - 70 U/L 34 eGFR >=60 mL/min/1.73m 88 Vitamin B12 232 - 1,245 pg/mL 997 Ferritin 30.3 - 565.7 ng/mL 197.0 Iron 41 - 186 ug/dL 179 TIBC 232 - 386 ug/dL 300 Transferrin Saturation 15.0 - 57.0 % 59.7 (H) UltraSens C-Reactive Protein <3.1 mg/L 2.2 Cholesterol, Total <200 mg/dL 166 Triglyceride <150 mg/dL 108 Fasting Time hrs 12 HDL Cholesterol >39 mg/dL 68 LDL Cholesterol <100 mg/dL 76 VLDL Cholesterol <30 mg/dL <30 mg/dL 16 22 TC:HDL Ratio <5.10 2.44 LDL:HDL Ratio <2.54 1.12 LDL Cholesterol, Direct <100 mg/dL 82 Non HDL Cholesterol <130 mg/dL 98 PSA <2.60 ng/mL 0.99 PSA, Percent Free % 32 Free T4 0.9 - 1.7 ng/dL 1.3 TSH 0.270 - 4.200 mIU/L 3.920 Testosterone 193 - 824 ng/dL 553 Testosterone, Free Calculation 38.0 - 120.0 pg/mL 73.3 Testosterone, Percent Free 1.1 - 2.6 % 1.3 Testosterone, Bioavailable 105.0 - 324.0 ng/dL 237.5 Sex Hormone Bind GLB 14 - 82 nmol/L 54 WBC 3.70 - 11.00 k/uL 5.68 RBC 4.20 - 6.00 m/uL 5.19 Hemoglobin 13.0 - 17.0 g/dL 16.4 Hematocrit 39.0 - 51.0 % 47.6 Platelet Count 150 - 400 k/uL 255 MCV 80.0 - 100.0 fL 91.7 MCH 26.0 - 34.0 pg 31.6 MCHC 30.5 - 36.0 g/dL 34.5 MPV 9.0 - 12.7 fL 10.5 RDW-CV 11.5 - 15.0 % 11.9 DTYPE Auto Neut% % 49.2 Abs Neut (ANC) 1.45 - 7.50 k/uL 2.80 Lymph% % 37.7 Abs Lymph 1.00 - 4.00 k/uL 2.14 [place]% % 8.6 Abs [place] <0.87 k/uL 0.49 Eosin% % 3.0 Abs Eosin <0.46 k/uL 0.17 Baso% % 1.1 Abs Baso <0.11 k/uL 0.06 Immature Gran % % 0.4 IMMATURE GRANS (ABS) <0.10 k/uL <0.03 NRBC /100 WBC 0.0 Absolute nRBC <0.01 k/uL <0.01 (H): Data is abnormally high documented in this encounter [facility] 09-11-2022 History of Present illness Narrative PRESENT COMPLAINTS: Mr. Demetri Santillan is a 47 year old man who presents for comprehensive medical examination and assessment. PRESENT MEDICATIONS: Cholecalciferol, Vitamin D3, 25 mcg (1,000 unit) cap: 1daily omega 1-WWG-odc-fish oil (FISH OIL) 100-160-1,000 mg cap: 1 daily Valerian Root 500 mg cap: 1 at bedtime Herbal Drugs (CALMME FORTE) tab: 1 at bedtime magnesium carb,citrate,oxide (MAGNESIUM COMPLEX) 300 mg magnesium tab: 1 daily cyanocobalamin (VITAMIN B-12) 1,000 mcg tab: 1 daily melatonin 1 mg table: 1-2 at bedtime MEDICATION ALLERGIES: No Known Drug Allergies PAST MEDICAL HISTORY: Family History of Colon Cancer (mother and paternal aunt) Multiple Nevi (2 x 2 mm on right upper back x 2, 7 x 2 mm on right lower back/flank) Vitamin D Insufficiency Multiple Lipomas PAST SURGICAL AND PROCEDURAL HISTORY: ACL repair of Right knee 2006 Appendectomy, ruptured, emergent, sepsis 1999 Colonoscopy with MAC, 1 hyperplastic polyp 08/02/15 Colonoscopy General Anes - 5 year [id number]/2020 (Repeat in 5 years) FAMILY MEDICAL HISTORY: Mother: Smoker, alcoholism with liver disease, Colon/Rectal cancer at 57 Father: Car accident; at 48 Sister: Melania 1974 No Known Medical Problems Brother: Mike 1986 MVA; multiple injuries \Maternal Grandmother: Hypertension , at 96 Maternal Grandfather: Heart, Stroke, at 62 Paternal Grandmother: Hypertension Paternal Grandfather: Diabetes, Hypertension, Stroke Daughter: Jackelyn 2006 Anxiety Daughter Ani 2007 No Known Medical Problems Daughter: Sole 2010 Overweight Paternal Aunt: Colon Cancer in her 60's SOCIAL HISTORY: Employer and Occupation: [employer], Software Database Architect Years Of Education Completed: 16 years Marital Status: to Vero with 3 children Tobacco Use: Never Alcohol Use: Approximately 3-4 Glasses of Wine and <1 Can of Beer/week Caffeine : Drinks 1 large cup of coffee per day. No soft drinks, some herbal tea) Diet : generally balanced diet., some intermittent fasting 1-8 pm Exercise: run weekly, tennis, 3 times a week cycle weekly, walk 1 hour daily yoga, trying to do strength training. 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 Mild stress level at work reported. REVIEW OF SYSTEMS: GENERAL: Denies fever, chills, or night sweats. No significant changes in weight. Energy level is decent. Over the past year, has lost 3 lbs. DERMATOLOGIC: Denies any new skin conditions, rashes or changing moles., Positive for tinea on feel EYES: Wears reading glasses. ENT: Denies hearing loss or tinnitus. Last dental exam within past 6 months. Last dental exam was every 4 months . No significant allergies. No recurrent sinus infections. RESPIRATORY: Denies any cough, dyspnea, or wheezing. CARDIOVASCULAR: Denies any chest pain with exertion or at rest, palpitations, exertional pre-syncope, or edema. GASTROINTESTINAL: No persistent heartburn, abdominal cramping or pains, change in bowel habit, or rectal bleeding. GENITOURINARY: Denies problems with urinary stream., nocturia , Denies dysuria, frequency, urgency, incontinence, erectile dysfunction. MUSCULOSKELETAL: calf pain on left , back lower left side back pain,Denies joint pains, swelling, or loss of range of motion. Denies incapacitating or persistent back pain. NEURO: Denies frequent or severe headaches, vertigo, balance problems, or memory problems. Denies weakness, numbness or tingling. PSYCHIATRIC: Denies sleeping problems. Denies marital discord. Denies anxiety or depression. In the past 2 weeks have you: Cass down, depressed, or hopeless? NO Lost interest in your usual activities? NO HEMATOLOGIC/LYMPHATIC/IMMUNOLOGIC : No history of anemia. No unusual or unexplained bruising. No history of abnormal bleeding. ENDOCRINE: No cold intolerance, constipation, unexplained hair loss, or unexplained weight gain. No excessive thirst or excessive urination. PHYSICAL EXAM: Vital Signs: Blood pressure 123/76, pulse (!) 52, temperature 36.2 C (97.1 F), temperature source Temporal Artery, height 181 cm (5' 11.26), weight 83.3 kg (183 lb 9.6 oz). Body mass index is 25.42 kg/m . GENERAL: Well developed, well nourished. No acute distress. SKIN: Inspection of the skin is unremarkable. No suspicious lesions. HEAD: The cranial shape and structures are normal. EYES: The conjunctiva and eyelids are normal. Sclera normal. EOM s normal. EARS: External ear,auditory canals and tympanic membranes are normal. NOSE: The structures of the lower nose are normal. MOUTH: No abnormal lesions on the lips, tongue,oropharynx, buccal mucosa, or gums. NECK: The carotid pulses are normal and without bruits.No palpable lymph nodes. The thyroid is normal size without nodules. CHEST: Lungs clear to auscultation. No wheezes, rales or rhonchi. HEART: Regular rate and rhythm without murmur, gallop or rub. PERIPHERAL VASCULAR: Palpable distal pulses. No lower extremity edema. ABDOMEN: Soft, non-distended, non-tender with no hepatosplenomegaly or masses. GENITAL: Normal external genitalia, no penile lesions, no testicular masses RECTAL: non tender bilobar prostate BACK AND EXTREMITIES: Gait and station are normal. The digits and nails are unremarkable. No muscle atrophy or fasciculations. No deformities. NEUROLOGICAL: Cranial nerves 2-12 are grossly intact. No neurological deficits noted. MENTAL STATUS: Alert, oriented and appropriate. No signs of depression or anxiety. STUDIES: Complete Blood Count: Normal. Metabolic Profile: The chemistry profile is normal including tests for kidney function, liver function, and electrolytes. Fasting Blood Sugar (Glucose): Normal at 95 mg/dL (normal is below 100). Hemoglobin A1C (indicator of 12-week blood sugar average): Normal at 5.0%. 4.0-5.6% is within normal range 5.7-6.4% considered pre-diabetes where patients are at increased risk for development of diabetes. >6.4% is considered diabetic. Lipid Profile: Total cholesterol :166 mg/dL, LDL (bad) cholesterol optimal at 76 mg/dL, HDL (good) cholesterol nice and high at 68 mg/dL, triglycerides normal at 108 mg/dL The National Cholesterol Education Program guidelines suggest an LDL less than 130, an HDL greater than 45 for men and triglycerides less than 150. Other Cardiac Risk Indicators: Ultrasensitive C-Reactive Protein (us-CRP): Normal at 2.2 mg/L. us-CRP <1.0 is considered low relative risk for cardiovascular events, 1.0 to 3.0 is considered average risk, and > 3.0 is considered increased risk for cardiovascular events. Apolipoprotein B: Nice and low at 66 mg/dL. Normal is < 110, borderline risk is 111 - 127, and high risk is > 127. Lipoprotein (a): Nice and low at 6 mg/dL. Urinalysis: Normal. Urine Albumin/Creatinine Ratio (a more accurate test for urinary protein): Normal at <17 mg/g. Thyroid Function (TSH and free T4): Normal. PSA (Prostate Specific Antigen): low normal at 0.99 ng/mL Testosterone: Normal at 553ng/dl Labs reflecting nutrient intake: Vitamin B12: Normal at 997 pg/mL. Ferritin: Normal at 197.0 ng/mL. This is a measure of your iron stores. Iron: Normal at 179 ug/dL. Uric acid: Normal at 6.5 mg/dL normal range is 3.0 - 8.0 Vitamin D: Normal at 58.4 ng/mL. Normal range is 31-80 Percent Body Fat: 24 %. The desired range for men is 10-20%. Your maximum weight to achieve 20% body fat is 172 pounds. Your abdominal waist circumference is 36 inches. An abdominal waist circumference of greater than 35.6 inches is now considered a risk factor for heart disease and diabetes. Your waist to hip ratio is 0.9. [place] waist to hip ratio for a man is 0.90 or less. Chest X-ray: Normal. Visual Acuity:Wears reading glasses FAR: Right 20/20 Left 20/20 Both 20/20 LEFT: Right 20/20 Left 20/30 Both 20/20 Tonometry (Ocular Pressure): Normal. Right:17mmHg Left:17 mmHg Fundus Photography: Normal. CONCLUSIONS: Comprehensive health evaluation with physical examination, laboratory data, radiographic imaging and cardiac testing. Recommend a healthy diet, including a calcium intake of approximately 1200 mg per day from food with supplementation as needed to achieve this goal and 1/2 of your body weight in ounces of non alcoholic,non caffeinated liquid/day Recommend > 150 minutes a week of exercise. Colorectal cancer screening with Colonoscopy is up to date Risks/benefits of prostate cancer screening discussed, screening PSA is normal. Depression screening tool completed and reviewed with patient. Based on score and interview, patient is not at risk for depression and recommended no further intervention at this time. Patient was counseled [id number] by myself (the billing provider) for the following immunizations and vaccine components, including side effects: COVID-19 Bivalent Booster Patient declines. Myalgia continue MASSAGE THERAPY For your convenience a downloadable version of the Executive Health program Reference Guide is now available on our website [email or web address]. RECOMMENDATIONS General health maintenance recommendations include a physical exam with primary care physician or executive health physician yearly. Colon cancer screening every five years with a first degree relative with colon cancer will be due 08/07/2025/ Immunizations recommended include: Influenza (flu) vaccination yearly in the fall Tetanus vaccination ,Tdap, last 12/22/2015, every 10 years without incident, and after five years in the event of a deep puncture wound Pneumonia immunization begins at age 65, or earlier with risk factors such as asthma, diabetes, or immune compromise. Shingrix is given after age 50 to protect us from reactivation of the chicken pox virus we had as a child, known as shingles or herpes zoster. Covid 19: Original vaccination and boosters, followed by bivalent booster. Please visit the [facility] website: [email or web address] For wellness information on such topics as supplements, how to sleep better, stress management and weight reduction See letter for final recommendations based on pending results Patrick Ibrahim MD documented in this encounter [facility] 09-11-2022 History of Present illness Narrative Radiology Service Progress Note PATIENT NAME: Demetri Santillan DATE OF SERVICE: September 11, 2022 TIME: 9:05 AM PATIENT IDENTITY VERIFICATION COMPLETED USING TWO (2) IDENTIFIERS: Name and Date of confirmed by patient verbally. FALL SCREENING: Has the patient had 2 falls in the last year or 1 fall with injury or currently using an Ambulatory Assistive Device (Walker, Cane, Wheelchair, Crutches, etc.)? No PATIENT GENDER DATA: Male PATIENT RELEVANT IMPLANT DATA REVIEWED: Not Applicable RADIOLOGY DEPARTMENT: General X-ray: Exam(s) Completed: Chest X-Ray PERIPHERAL IV DATA: Not applicable SIGNED BY: RT Tresa(R) September 11, 2022 9:05 AM documented in this encounter [facility] 09-04-2022 Miscellaneous Notes Pt. informed via My Chart. I would recommend fasting labs and urinalysis as well as chest xray and eye examination. Ivan Lobo DO [facility] message turned into TE. Radames Love, I have my executive physical next week. Are there any tests you recommend for me to have while I am there? Many thanks, Demetri Bertrand MA documented in this encounter [facility] 09-03-2022 Miscellaneous Notes MC message turned into TE. Dayami Bertrand MA documented in this encounter [facility] 09-03-2022 Miscellaneous Notes Previsit call completed. confirmed. Reviewed department guidelines/changes with pt in regards to covid 19-pt verbalized understanding. Additional consults: None Q: will email or bring Patient states he will contact his PCP to contact [facility], because he believes that she wants him to have additional tests while here. He will call us back. documented in this encounter [facility] 09-03-2022 Miscellaneous Notes Attempted pre-visit call. Patient going through Customs at the airport and stated he will call us back to review physical scheduled for September 11. documented in this encounter [facility] 08-28-2022 Miscellaneous Notes Attempted pre-visit call. LVM for patient to call [facility] nurse line. documented in this encounter [facility] 07-24-2022 Instructions Ivan Lobo DO - 07/24/2022 6:12 PM EDT Magnesium glycinate or gluconate 400-500 mg a day in the evening to help with sleep documented in this encounter [facility] 07-24-2022 History of Present illness Narrative CC: Demetri Santillan is a 47 year old male who presents to the office for physical HPI: Overall he is doing well without any major concerns. He will be having his executive physical in 1 month on 09/11 at [facility] Occasional right knee clicking when he gets up in the AM, out of bed. Denies any pain, states that the clicking goes away as he is up and moving consistently. He is very physically active with tennis 2x/week, running 2-3 times a week, daily walking of at least 15,000-20,000 steps and walking dog 3-5 miles a day. No swelling, no injuries. No skin changes Left heel pain, comes and goes, mostly in AM or with prolonged running. Not severe. Seems to get better with calf and heel stretching. Trying to get back into intermittent fasting routine and limiting snacks and sugar. Also trying to get back into YOGA again PAST MEDICAL HISTORY Diagnosis Date Family history of colon cancer mother and paternal aunt Multiple lipomas Multiple nevi 2 x 2 mm on right upper back x 2, 7 x 2 mm on right lower back/flank Vitamin D insufficiency PAST SURGICAL HISTORY Procedure Laterality Date APPENDECTOMY 1999 ruptured, emergent, sepsis COLONOSCOPY 08/02/2015 Colonoscopy (MAC), 1 hyperplastic polyp COLONOSCOPY GEN ANES 08/07/2020 Repeat in 5 years FRACTURE SURGERY PAST SURGICAL HISTORY OF 2006 ACL repair of Right knee Social History: Social History Tobacco Use Smoking status: Never Smokeless tobacco: Never Tobacco comments: secondhand smoke exposure as a child Substance Use Topics Alcohol use: Yes Alcohol/week: 5.0 standard drinks Types: 1 Glasses of Wine (5oz), 1 Cans of Beer (12oz) per week Drug use: No FAMILY HISTORY Problem Relation Age of Onset Colon Cancer Mother Rectal; 57 other (Alcoholism, with liver disease) Mother other (Car accident) Father at 48 Hypertension Maternal Grandmother Heart Maternal Grandfather Stroke Maternal Grandfather Hypertension Paternal Grandmother Diabetes Paternal Grandfather Hypertension Paternal Grandfather Stroke Paternal Grandfather Colon Cancer Paternal Aunt 50 None Sister None Brother None Daughter x3 Current Outpatient prescriptions: cyanocobalamin (VITAMIN B-12) 1,000 mcg tab Take 1,000 mcg by mouth once daily. Cholecalciferol, Vitamin D3, 2,000 unit cap Take 1 tablet by mouth once daily. ascorbic acid (OSITO-C ORAL) Take 1 tablet by mouth once daily. LYSINE ORAL Take 2 tablets by mouth once daily. OTC PRODUCT Take 1 tablet by mouth at bedtime as needed. Calms Forte Allergies: ALLERGIES No Known Allergies ROS: See HPI PE: 07/24/22 1707 BP: 110/70 Pulse: 60 Resp: 12 Temp: (!) 35.8 C (96.4 F) TempSrc: Left Tympanic Weight: 83 kg (183 lb) Height: 182 cm (5' 11.65) Gen: A&O, NAD, non-toxic appearing, Pleasant, cooperative HEENT: NT/AC, PERRLA, EOMs intact b/l, nares clear and patent b/l, pharynx without erythema, exudate or lesions. Uvula midline. EACs without erythema or debris. TMs pearly champion with intact landmarks b/l. Neck: supple, No cervical LAD, no thyromegaly, no carotid bruits CV: RRR, normal S1 and S2, no murmurs, no gallops, no rubs, Pulses 2+ and symmetric in UE and LE b/l Lungs: normal respiratory effort, CTA b/l, no wheezing or rhonchi or rales Abd: soft, NT, ND, +BS, no hepatosplenomegaly MS: FROM all 4 extremities Neuro: CN II-XII intact b/l, strength 5/5 b/l UE and LE, DTRs 2/4 UE and LE, sensation intact. Skin: warm, dry, intact, No rashes or lesions on exposed skin. Scattered nevi present No edema ASSESSMENT/PLAN: 1. Well adult exam - ICD9: V70.0, ICD10: Z00.00 (primary diagnosis) - Counseled on healthy diet and regular exercise - TSH BLD - T4 FREE/FREE THYROX - COMP METABOLIC PANEL - CBC + DIFF - C-REACTIVE ULTRA SEN - NMR LIPOPROTEIN PROFILE - HGB A1C - VITAMIN D 25 HYDROXY - VITAMIN B12 BLOOD 2. Vitamin D deficiency - ICD9: 268.9, ICD10: E55.9 - VITAMIN D 25 HYDROXY 3. Knee clicking - ICD9: 719.66, ICD10: R29.898 - likely due to cartilage changes. He is otherwise without pain, continue good exercise and leg strengthening 4. Pain of left heel - ICD9: 729.5, ICD10: M79.672 - likely due to tendinitis vs. Heel spur. Stretches and icing and topical NSAID recommended as needed Ivan Lobo DO To ER if develops chest pain, shortness of breath, or severe worsening of symptoms. Discussed risks, benefits, alternatives, and potential side effects of medications. Patient expressed understanding and agreed with the plan. Ivan Lobo DO [address] [place] [address] documented in this encounter [facility] Evaluation note Diagnosis Well adult exam- Primary Routine general medical examination at a health care facility Vitamin D deficiency Unspecified vitamin D deficiency Knee clicking Other symptoms referable to lower leg joint Pain of left heel Pain in limb [facility] Routine general medical examination at a health care facility [facility] Diagnosis Routine general medical examination at a health care facility- Primary Myalgia Mylagia and myositis, unspecified [facility] Diagnosis Wellness examination- Primary [facility] Diagnosis Abnormal finding on EKG- Primary Nonspecific abnormal electrocardiogram (ECG) (EKG) [facility] Diagnosis Well adult exam- Primary Routine general medical examination at a health care facility Altered bowel function Other symptoms involving digestive system Bloating Flatulence, eructation, and gas pain Dyslipidemia Other and unspecified hyperlipidemia Pain of left calf Pain in limb [facility] Diagnosis Routine general medical examination at a health care facility- Primary Laboratory examination Laboratory examination, unspecified [facility] Diagnosis Normal hearing test [facility] Diagnosis Recurrent cold sores- Primary Herpes simplex without mention of complication Helicobacter pylori ab+ Other and unspecified nonspecific immunological findings Screening for prostate cancer Special screening for malignant neoplasm of prostate Borderline abnormal thyroid function test Nonspecific abnormal results of thyroid function study Bloating Flatulence, eructation, and gas pain Vitamin D deficiency Unspecified vitamin D deficiency [facility] Diagnosis Elevated PSA- Primary Elevated prostate specific antigen (PSA) [facility] Diagnosis Encounter for wellness examination in adult- Primary Screening for depression Encounter for screening examination for other mental health and behavioral disorders Recurrent cold sores Herpes simplex without mention of complication Vitamin D deficiency Unspecified vitamin D deficiency Family history of colon cancer Family history of malignant neoplasm of gastrointestinal tract Change in bowel habits Other symptoms involving digestive system Normal coronary arteries, Coronary Calcium Score = 0 Screening for other and unspecified cardiovascular conditions Abnormal ECG during exercise stress test [facility] Diagnosis Wellness examination- Primary [facility] Diagnosis Bloating- Primary Flatulence, eructation, and gas pain [facility] Diagnosis Abnormal PSA- Primary Elevated prostate specific antigen (PSA) Abnormal urinalysis Other nonspecific finding on examination of urine documented [facility]* Diagnosis Abnormal electrocardiogram- Primary Nonspecific abnormal electrocardiogram (ECG) (EKG) documented [facility]* Diagnosis Abnormal electrocardiogram Nonspecific abnormal electrocardiogram (ECG) (EKG) documented in [facility]* Diagnosis Elevated prostate specific antigen (PSA)- Primary Screening for genitourinary condition Screening for other and unspecified genitourinary condition Acute cystitis without hematuria Acute cystitis documented [facility]* Diagnosis Elevated prostate specific antigen (PSA)- Primary Screening for genitourinary condition Screening for other and unspecified genitourinary condition Acute cystitis without hematuria Acute cystitis Screening for genitourinary condition Screening for other and unspecified genitourinary condition documented [facility]* Diagnosis History of elevated PSA- Primary Personal history of other specified diseases documented in this encounter [facility] for referral (narrative)* Outpatient Procedure (Routine) - New Request Specialty Diagnoses / Procedures Referred By Dennis torres Ref[facility] Diagnoses Routine general medical examination at a health care facility Procedures EXERCISE STRESS ECG (WITHOUT IMAGING) CV STRS TST XERS&/OR RX CONT ECG TRCG ONLY Patrick Ibrahim MD [address] [place] [address] [facility] [place] [address] Referral ID Status Reason Start Date Expiration Date Visits Requested Visits Authorized [id number] New Request Auto-Generat ed Referral 01/25/2025 1 1 * Consult, Test, Treat (Routine) - Authorized Specialty Diagnoses / Procedures Referred By Dennis torres Referred To Contact Diagnoses Routine general medical examination at a health care facility Procedures HEARING TEST/AUDIOGRAM COMPRE AUDIOMETRY THRESHOLD EVAL SP JESUSIJ Patrick Ibrahim MD [address] [place] [address] [facility] [address] [place] [address] Referral ID Status Reason Start Date Expiration Date Visits Requested Visits Authorized [id number] Authorized Auto-Generat ed Referral 12/12/2023 12/12/2024 1 1 [facility] for referral (narrative)* Outpatient Procedure (Routine) - Pending Review Specialty Diagnoses / Procedures Referred By Contac t Referred To [facility] Diagnoses Abnormal ECG during exercise stress test Procedures STRESS ECHO TREADMILL ECHO TTHRC R-T 2D W/WO M-MODE COMPLETE REST&ST Patrick Ibrahim MD [address] [place] [address] [facility] [place] [address] [place] [address] Referral ID Status Reason Start Date Expiration Date Visits Requested Visits Authorized [id number] Pending Review Auto-Generat ed Referral 01/26/2025 1 1 [facility] for referral (narrative)* Diagnostic Procedure Only (Routine) - Authorized Specialty Diagnoses / Procedures Referred By Contact Referred To Contact [facility] Diagnoses Abnormal electrocardiogram Procedures NM CARDIAC PERF STRESS/EXERCISE MYOCARDIAL SPECT MULTIPLE STUDIES Patrick Ibrahim MD [address] [place] [address] [facility] [address] [place] [id number] Referral ID Status Reason Start Date Expiration Date Visits Requested Visits Authorized [id number] Authorized Auto-Generat ed Referral 04/02/2024 09/28/2024 1 1 [facility] for referral (narrative)* Diagnostic Procedure Only (Routine) - Closed Specialty Diagnoses / Procedures Referred By Contact Referred To Contact [facility] Diagnoses Abnormal electrocardiogram Procedures NM CARDIAC PERF STRESS/EXERCISE MYOCARDIAL SPECT MULTIPLE STUDIES Patrick Ibrahim MD [address] [place] [address] [facility] [address] [place] [address] Referral ID Status Reason Start Date Expiration Date V isits Requested Visits Authorized [id number] Closed Auto-Generate d Referral 04/02/2024 09/28/2024 3 3 [facility] for visit Narrative* Diagnostic Procedure Only (Routine) - Closed Specialty Diagnoses / Procedures Referred By Contact Referred To Contact [facility] Diagnoses Abnormal electrocardiogram Procedures NM CARDIAC PERF STRESS/EXERCISE MYOCARDIAL SPECT MULTIPLE STUDIES Patrick Ibrahim MD [address] [place] [address] [facility] [address] [place] [address] Referral ID Status Reason Start Date Expiration Date V isits Requested Visits Authorized [id number] Closed Auto-Generate d Referral 04/02/2024 09/28/2024 3 3 [facility] Summary Purpose Family History No Family History Records FoundNo Family History Records Found Advance Directives No Advanced Directives Records FoundNo Advanced Directives Records Found Additional Source Comments Source Comments (unrecognize d section and content) In the event this informatio n is protected by the Federal Confidentiality of Alcohol and Drug Abuse Patient Records regulations: The Federal rules restrict any use of the information to criminally investigate or prosecute any alcohol or drug abuse patient.[facility] the event this information is protected by the Federal Confidentiality of Alcohol and Drug Abuse Patient Records regulations: The Federal rules restrict any use of the information to criminally investigate or prosecute any alcohol or drug abuse patient.[facility] the event this information is protected by the Federal Confidentiality of Alcohol and Drug Abuse Patient Records regulations: The Federal rules restrict any use of the information to criminally investigate or prosecute any alcohol or drug abuse patient.[facility] the event this information is protected by the Federal Confidentiality of Alcohol and Drug Abuse Patient Records regulations: The Federal rules restrict any use of the information to criminally investigate or prosecute any alcohol or drug abuse patient.[facility] the event this information is protected by the Federal Confidentiality of Alcohol and Drug Abuse Patient Records regulations: The Federal rules restrict any use of the information to criminally investigate or prosecute any alcohol or drug abuse patient.[facility] the event this information is protected by the Federal Confidentiality of Alcohol and Drug Abuse Patient Records regulations: The Federal rules restrict any use of the information to criminally investigate or prosecute any alcohol or drug abuse patient.[facility] Hospital[facility] the event this information is protected by the Federal Confidentiality of Alcohol and Drug Abuse Patient Records regulations: The Federal rules restrict any use of the information to criminally investigate or prosecute any alcohol or drug abuse patient.[facility] Hospital[facility] the event this information is protected by the Federal Confidentiality of Alcohol and Drug Abuse Patient Records regulations: The Federal rules restrict any use of the information to criminally investigate or prosecute any alcohol or drug abuse patient.[facility] Hospital[facility] the event this information is protected by the Federal Confidentiality of Alcohol and Drug Abuse Patient Records regulations: The Federal rules restrict any use of the information to criminally investigate or prosecute any alcohol or drug abuse patient.[facility] HospitalIn the event this information is protected by the Federal Confidentiality of Alcohol and Drug Abuse Patient Records regulations: The Federal rules restrict any use of the information to criminally investigate or prosecute any alcohol or drug abuse patient.[facility] HospitalIn the event this information is protected by the Federal Confidentiality of Alcohol and Drug Abuse Patient Records regulations: The Federal rules restrict any use of the information to criminally investigate or prosecute any alcohol or drug abuse patient.[facility] HospitalIn the event this information is protected by the Federal Confidentiality of Alcohol and Drug Abuse Patient Records regulations: The Federal rules restrict any use of the information to criminally investigate or prosecute any alcohol or drug abuse patient.[facility] HospitalIn the event this information is protected by the Federal Confidentiality of Alcohol and Drug Abuse Patient Records regulations: The Federal rules restrict any use of the information to criminally investigate or prosecute any alcohol or drug abuse patient.[facility] HospitalIn the event this information is protected by the Federal Confidentiality of Alcohol and Drug Abuse Patient Records regulations: The Federal rules restrict any use of the information to criminally investigate or prosecute any alcohol or drug abuse patient.[facility] HospitalIn the event this information is protected by the Federal Confidentiality of Alcohol and Drug Abuse Patient Records regulations: The Federal rules restrict any use of the information to criminally investigate or prosecute any alcohol or drug abuse patient.[facility] HospitalIn the event this information is protected by the Federal Confidentiality of Alcohol and Drug Abuse Patient Records regulations: The Federal rules restrict any use of the information to criminally investigate or prosecute any alcohol or drug abuse patient.[facility] HospitalIn the event this information is protected by the Federal Confidentiality of Alcohol and Drug Abuse Patient Records regulations: The Federal rules restrict any use of the information to criminally investigate or prosecute any alcohol or drug abuse patient.[facility] HospitalIn the event this information is protected by the Federal Confidentiality of Alcohol and Drug Abuse Patient Records regulations: The Federal rules restrict any use of the information to criminally investigate or prosecute any alcohol or drug abuse patient.[facility] HospitalIn the event this information is protected by the Federal Confidentiality of Alcohol and Drug Abuse Patient Records regulations: The Federal rules restrict any use of the information to criminally investigate or prosecute any alcohol or drug abuse patient.[facility] HospitalIn the event this information is protected by the Federal Confidentiality of Alcohol and Drug Abuse Patient Records regulations: The Federal rules restrict any use of the information to criminally investigate or prosecute any alcohol or drug abuse patient.[facility] HospitalIn the event this information is protected by the Federal Confidentiality of Alcohol and Drug Abuse Patient Records regulations: The Federal rules restrict any use of the information to criminally investigate or prosecute any alcohol or drug abuse patient.[facility] HospitalIn the event this information is protected by the Federal Confidentiality of Alcohol and Drug Abuse Patient Records regulations: The Federal rules restrict any use of the information to criminally investigate or prosecute any alcohol or drug abuse patient.[facility] HospitalIn the event this information is protected by the Federal Confidentiality of Alcohol and Drug Abuse Patient Records regulations: The Federal rules restrict any use of the information to criminally investigate or prosecute any alcohol or drug abuse patient.[facility] HospitalIn the event this information is protected by the Federal Confidentiality of Alcohol and Drug Abuse Patient Records regulations: The Federal rules restrict any use of the information to criminally investigate or prosecute any alcohol or drug abuse patient.[facility] HospitalIn the event this information is protected by the Federal Confidentiality of Alcohol and Drug Abuse Patient Records regulations: The Federal rules restrict any use of the information to criminally investigate or prosecute any alcohol or drug abuse patient.[facility] HospitalIn the event this information is protected by the Federal Confidentiality of Alcohol and Drug Abuse Patient Records regulations: The Federal rules restrict any use of the information to criminally investigate or prosecute any alcohol or drug abuse patient.[facility] HospitalIn the event this information is protected by the Federal Confidentiality of Alcohol and Drug Abuse Patient Records regulations: The Federal rules restrict any use of the information to criminally investigate or prosecute any alcohol or drug abuse patient.[facility] HospitalIn the event this information is protected by the Federal Confidentiality of Alcohol and Drug Abuse Patient Records regulations: The Federal rules restrict any use of the information to criminally investigate or prosecute any alcohol or drug abuse patient.[facility] HospitalIn the event this information is protected by the Federal Confidentiality of Alcohol and Drug Abuse Patient Records regulations: The Federal rules restrict any use of the information to criminally investigate or prosecute any alcohol or drug abuse patient.[facility] HospitalIn the event this information is protected by the Federal Confidentiality of Alcohol and Drug Abuse Patient Records regulations: The Federal rules restrict any use of the information to criminally investigate or prosecute any alcohol or drug abuse patient.[facility] HospitalIn the event this information is protected by the Federal Confidentiality of Alcohol and Drug Abuse Patient Records regulations: The Federal rules restrict any use of the information to criminally investigate or prosecute any alcohol or drug abuse patient.[facility] HospitalIn the event this information is protected by the Federal Confidentiality of Alcohol and Drug Abuse Patient Records regulations: The Federal rules restrict any use of the information to criminally investigate or prosecute any alcohol or drug abuse patient.[facility] HospitalIn the event this information is protected by the Federal Confidentiality of Alcohol and Drug Abuse Patient Records regulations: The Federal rules restrict any use of the information to criminally investigate or prosecute any alcohol or drug abuse patient.[facility] Reason for Visit (unrecogniz ed section and content) Reason Comments Yearly Exam Reason Comments Nurse Triage Call [facility] Reason Comments Patient Question Reason Comments [facility] Physical Reason Comments Nurse Triage Call [facility] Reason Comments Nurse Triage Call [facility] 10/23 resc hedule Reason Comments Nurse Triage Call [facility] 01/26 Reason Comments Physical Specialty Diagnoses / Procedures Referred By Contac t Referred To Contact Diagnoses Routine general medical examination at a health care facility Procedures HEARING TEST/AUDIOGRAM COMPRE AUDIOMETRY THRESHOLD EVAL SP RECOGNIJ Patrick Ibrahim MD [address] [id number] [facility] [address] [place] [address] Referral ID Status Reason Start Date Expiration Date V isits Requested Visits Authorized [id number] Closed Auto-Generate d Referral 12/12/2023 12/12/2024 1 1 Reason Comments Nutrition Assessment Patient Education Reason Comments Follow Up labs Reason Comments Results Reason Comments [facility] Physical Specialty Diagnoses / Procedures Referred By Contact Referred To Contact Gastroenterology / GASTROENTEROLOGY Diagnoses Altered bowel function CHANGE IN BOWELS HABITS Procedures OFFICE/OUTPATIENT NEW MODERATE MDM 45 MINUTES NEW DDI PATIENT Self Teressa Pulido MD [address] [place] [address] Referral ID Status Reason Start Date Expiration Date Visits Re quested Visits Authorized [id number] Closed 01/27/2024 03/16/2024 1 1 Reason Comments UTI Reason Comments Radiology NM Specialty Diagnoses / Procedures Referred By Contact Referred To Contact MOLECULAR & FUNCTIONAL IMAGING Diagnoses Abnormal electrocardiogram Procedures NM CARDIAC PERF STRESS/EXERCISE MYOCARDIAL SPECT MULTIPLE STUDIES Patrick Ibrahim MD [address] [address] Molecular [facility] Functional Imaging [address] [place], [place] [id number] Referral ID Status Reason Start Date Expiration Date V isits Requested Visits Authorized [id number] Closed Auto-Generate d Referral 04/02/2024 09/28/2024 3 3 Reason Comments New Patient Care Teams (unrecognized sec tion and content) Lang Interpreter Relationship Specialty Start Date End Date Ivan Lobo DO [address] [place] [address] PCP - General Family Medicine 06/21/15 Lang Interpreter Relationship Specialty Start Date End Date Ivan Lobo DO [address] [place] [address] PCP - General Family Medicine 06/21/15 Lang Interpreter Relationship Specialty Start Date End Date Ivan Lobo DO [address] [place] [address] PCP - General Family Medicine 06/21/15 Lang Interpreter Relationship Specialty Start Date End Date Ivan Lobo DO [address] [place] [address] PCP - General Family Medicine 06/21/15 Lang Interpreter Relationship Specialty Start Date End Date Ivan Lobo DO [address] [place] [address] PCP - General Family Medicine 06/21/15 Lang Interpreter Relationship Specialty Start Date End Date Ivan Lobo DO [address] [place] [address] PCP - General Family Medicine 06/21/15 Lang Interpreter Relationship Specialty Start Date End Date Ivan Lobo DO [address] [place] [address] PCP - General Family Medicine 06/21/15 Lang Interpreter Relationship Specialty Start Date End Date Ivan Lobo DO [address] [facility] [place] [address] PCP - General Family Medicine 06/21/15 Lang Interpreter Relationship Specialty Start Date End Date Ivan Lobo DO [address] [place] [address] PCP - General Family Medicine 06/21/15 Lang Interpreter Relationship Specialty Start Date End Date Ivan Lobo DO [address] [place] [address] PCP - General Family Medicine 06/21/15 Lang Interpreter Relationship Specialty Start Date End Date Ivan Lobo DO [address] [place] [address] PCP - General Family Medicine 06/21/15 Lang Interpreter Relationship Specialty Start Date End Date Ivan Lobo DO [address] [place] [address] PCP - General Family Medicine 06/21/15 Lang Interpreter Relationship Specialty Start Date End Date Ivan Lobo DO [address] [place] [address] PCP - General Family Medicine 06/21/15 Lang Interpreter Relationship Specialty Start Date End Date Ivan Lobo DO [address] [facility] [place] [address] PCP - General Family Medicine 06/21/15 Lang Interpreter Relationship Specialty Start Date End Date Ivan Lobo DO [address] [place] [address] PCP - General Family Medicine 06/21/15 Lang Interpreter Relationship Specialty Start Date End Date Ivan Lobo DO [address] [place] [address] PCP - General Family Medicine 06/21/15 Maggie Fisher, COMPLAINT ADJUSTER.SUPERVISOR BORDER DEPARTMENT [address] [place] [address] Pleating Supervisor Family Medicine 02/22/24 Ayana Harp, COMPLAINT ADJUSTER.SUPERVISOR BORDER DEPARTMENT [address] [place] [address] Pleating Supervisor Family Medicine 02/22/24 Lang Interpreter Relationship Specialty Start Date End Date Ivan Lobo DO [address] [place] [address] PCP - General Family Medicine 06/21/15 Lang Interpreter Relationship Specialty Start Date End Date Ivan Lobo DO [address] [place] [address] PCP - General Family Medicine 06/21/15 Maggie Fisher, COMPLAINT ADJUSTER.SUPERVISOR BORDER DEPARTMENT [address] [place] [address] Pleating Supervisor Family Medicine 02/22/24 Ayana Harp, COMPLAINT ADJUSTER.SUPERVISOR BORDER DEPARTMENT [address] [place] [address] Pleating Supervisor Family Medicine 02/22/24 Lang Interpreter Relationship Specialty Start Date End Date Ivan Lobo DO [address] [place] [address] PCP - General Family Medicine 06/21/15 Maggie Fisher, COMPLAINT ADJUSTER.SUPERVISOR BORDER DEPARTMENT [address] [facility] [place] [address] Pleating Supervisor Family Medicine 02/22/24 Ayana Harp, COMPLAINT ADJUSTER.SUPERVISOR BORDER DEPARTMENT [address] [place] [address] Pleating Supervisor Family Medicine 02/22/24 Lang Interpreter Relationship Specialty Start Date End Date Ivan Lobo DO [address] [place] [address] PCP - General Family Medicine 06/21/15 Maggie Fisher, COMPLAINT ADJUSTER.SUPERVISOR BORDER DEPARTMENT [address] [place] [address] Pleating Supervisor Family Medicine 02/22/24 Ayana Harp, COMPLAINT ADJUSTER.SUPERVISOR BORDER DEPARTMENT [address] [place] [address] [facility] 02/22/24 Lang Interpreter Relationship Specialty Start Date End Date Ivan Lobo DO [address] [place] [address] PCP - General Family Medicine 06/21/15 Maggie Fisher, COMPLAINT ADJUSTER.SUPERVISOR BORDER DEPARTMENT [address] [place] [address] Pleating Supervisor Family Medicine 02/22/24 Ayana Harp, COMPLAINT ADJUSTER.SUPERVISOR BORDER DEPARTMENT [address] [place] [address] Pleating Supervisor Family Medicine 02/22/24 Lang Interpreter Relationship Specialty Start Date End Date Ivan Lobo DO [address] [facility] [place] [address] PCP - General Family Medicine 06/21/15 Maggie Fisher, COMPLAINT ADJUSTER.SUPERVISOR BORDER DEPARTMENT [address] [facility] [place] [address] Pleating [facility]visorSan [facility] 02/22/24 [facility]3]Ayana, COMPLAINT ADJUSTER.SUPERVISOR BORDER DEPARTMENT [address] [facility] [place] [address] [facility] 02/22/24 Lang Interpreter Relationship Specialty Start Date End Date Ivan Lobo DO [address] [facility] [place] [address] PCP - General Family Medicine 06/21/15 Maggie Fisher, COMPLAINT ADJUSTER.SUPERVISOR BORDER DEPARTMENT [address] [facility] [place] [address] Pleating [facility]visor[facility] 02/22/24 KatiuskaAyana, COMPLAINT ADJUSTER.SUPERVISOR BORDER DEPARTMENT [address] [facility] [place] [address] [facility] 02/22/24 Lang Interpreter Relationship Specialty Start Date End Date Ivan Lobo DO [address] [facility] [place] [address] PCP - General Family Medicine 06/21/15 Maggie Fisher, COMPLAINT ADJUSTER.SUPERVISOR BORDER DEPARTMENT [address] [facility] [place] [address] Pleating SupervisorSan [facility] 02/22/24 KatiuskaAyana flores, COMPLAINT ADJUSTER.SUPERVISOR BORDER DEPARTMENT [address] [place], [place] [address] [facility] 02/22/24 Lang Interpreter Relationship Specialty Start Date End Date LoobIvan DO [address] [place], [place] [address] PCP - General Family Medicine 06/21/15 Maggie Fisher, COMPLAINT ADJUSTER.SUPERVISOR BORDER DEPARTMENT [address] [place], [place] [address] [facility] 02/22/24 Ayana Harp, COMPLAINT ADJUSTER.SUPERVISOR BORDER DEPARTMENT [address] [place], [place] [address] [facility] 02/22/24 (unrecognized sect ion and content) No Status Records FoundNo Status Records Found INFORMATION SOURCE (unrecogn ized section and content) DATE CREATED AUTHOR 01/01/2025 [facility] DATE CREATED AUTHOR AUTHOR'S NICK PENA 01/11/2025 [facility] FOR RECORDS PERTAINING TO PATIENTS WHO ARE OR HAVE BEEN ENROLLED IN A CHEMICAL DEPENDENCY/SUBSTANCEABUSE PROGRAM, SOME INFORMATION MAY BE OMITTED. This clinical summary was aggregated from multiple sources. Caution should be exercised in using it in the provision of clinical care. This summary normalizes information from multiple sources, and as a consequence, information in this document may materially change the coding, format and clinical context of patient data. In addition, data may be omitted in some cases. CLINICAL DECISIONS SHOULD BE BASED ON THE PRIMARY CLINICAL RECORDS. [employer] provides no warranty or guarantee of the accuracy or completeness of information in this document.
== END | disposition home or self-care (01) ==
LOC: LABSPEC 11:13
PROVIDERS: PCP Internal Medicine; Referring Provider Internal Medicine; Visit Provider Internal Medicine
DX: R80.9 Proteinuria, unspecified (principal)
CPT/HCPCS: 81001; 87086